=== PATIENT | female | born 1940 | race Caucasian/White ===

== ENCOUNTER 2019-08-20 14:08 | Observation (INO) | payer MEDICARE ==
[2019-08-20] MEDS ORDERED: cereBYX 50 MG/ML*** 1,000 MG in Sodium Chloride 0.9% 100 ML IVPB 100 ML IV ONE (14:20)
--- NOTE | 2019-08-20 14:27 | ERPHSYRPT ---
- History of Present Illness Time Seen by Provider: 08/20/19 14:10 Source: patient, family Exam Limitations: no limitations Physician History: per family: The patient was getting ready to start eating her Thanksgiving lunch. C. tried to remove her rest better and at that time she kept her hand in the air and the and she become cold and clammy and broke out in a sweat and then she become unresponsive for a few seconds. Patient alert and oriented x3 in the emergency room but has a little bit of intermittent confusion just like a postictal confusion. Family states that she did have a some involuntary movement of both her extremity and she had incontinence at home. Witnessed: by family Prior Episodes: single episode today Timing/Duration: today Precipitating Factors: unknown Context: sitting Loss of Consciousness: brief (seconds) Charcter of event(s): became unresponsive Allergies/Adverse Reactions: Penicillins Allergy (Verified 06/07/12 11:38) one of the 2 allergies causes throat to swell and 1 causes hives unsure which one Sulfa (Sulfonamide Antibiotics) [Sulfa(Sulfonamide Antibiotics)] Allergy ( Verified 06/07/12 11:38) one of the 2 allergies causes throat to swell and 1 causes hives unsure which one Home Medications: Diclofenac Sodium Gel [Voltaren GEL] 100 gm TP DAILY 08/20/19 [History] Montelukast Sodium 10 mg PO DAILY 08/20/19 [History] Hx Tetanus, Diphtheria Vaccination/Date Given: (UNSURE) Hx Influenza Vaccination/Date Given: (UNSURE) Hx Pneumococcal Vaccination/Date Given: (UNSURE) - Past Medical History Neurological History: TIA ENT History: Cataracts Cardiac History: Hypertension Respiratory History: No Pertinent History Endocrine Medical History: No Pertinent History Musculoskeletal History: Arthritis GI Medical History: Colorectal Cancer History: No Pertinent History Psycho-Social History: No Pertinent History Female Reproductive Disorders: No Pertinent History - Past Surgical History Past Surgical History: Yes Neuro Surgical History: No Pertinent History Cardiac: No Pertinent History Respiratory: No Pertinent History Gastrointestinal: Colon Resection Musculoskeletal: Orthopedic Surgery Female Surgical History: Hysterectomy - Social History Smoking Status: Smoker, status unknown Exposure to second hand smoke: No Drug Use: none Patient Lives Alone: No - Review of Systems Constitutional: No Fever, No Chills Eyes: No Symptoms Ears, Nose, & Throat: No Symptoms Respiratory: No Cough, No Dyspnea Cardiac: No Chest Pain, No Edema, No Syncope Abdominal/Gastrointestinal: No Abdominal Pain, No Nausea, No Vomiting, No Diarrhea Genitourinary Symptoms: Other (urinary incontinence), No Dysuria Musculoskeletal: No Back Pain, No Neck Pain Skin: No Rash Neurological: Seizure, Other (syncope), No Dizziness, No Focal Weakness, No Sensory Changes Psychological: No Symptoms Endocrine: No Symptoms All Other Systems: Reviewed and Negative Physical Exam - Nursing Vital Signs Nursing Vital Signs: Initial Vital Signs Temperature 97.5 F 08/20/19 14:09 Pulse Rate 68 08/20/19 14:09 Respiratory Rate 14 08/20/19 14:09 Blood Pressure 145/71 08/20/19 14:09 O2 Sat by Pulse Oximetry 92 L 08/20/19 14:09 Pain Scale Pain Intensity 0 - Marcello Coma Scale Best Eye Response ([place]): (4) open spontaneously Best Verbal Response ([place]): (5) oriented Best Motor Response ([place]): (6) obeys commands [place] Total: 15 - Physical Exam General Appearance: no apparent distress, alert Eye Exam: bilateral eye: PERRL, EOMI Ears, Nose, Throat Exam: normal ENT inspection, pharynx normal, moist mucous membranes Neck Exam: normal inspection, non-tender, supple, full range of motion, No meningismus, No mass Respiratory: normal breath sounds, lungs clear, airway intact, No chest tenderness, No respiratory distress, No diminished breath sounds Cardiovascular: regular rate/rhythm, capillary refill <2 sec, No murmur, No pulse deficit Gastrointestinal: soft, normal bowel sounds, No tenderness, No distention, No mass Back Exam: normal inspection, normal range of motion, No CVA tenderness, No vertebral tenderness Extremity Exam: normal inspection, normal range of motion, pelvis stable, No tenderness Mental Status: alert, oriented x 3, 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 Exam: normal hearing, normal speech, PERRL, No abnormal eye position, No abnormal gag reflex, No abnormal pupil position, No facial droop Coordination/Gait: normal finger to nose Motor/Sensory: no motor deficit, no sensory deficit, no pronator drift, negative Babinski's sign, No pronator drift (L), No sensory deficit, No weak motor strength RUE, No weak motor strength LUE, No weak motor strength RLE, No weak motor strength LLE Skin Exam: normal color, warm, dry, No rash SpO2 Interpretation: normal O2 Delivery: Room Air - Course Nursing assessment & vital signs reviewed: Yes EKG Interpreted by Me: RATE (66), NORMAL AXIS, prolonged QT interval, Left Bundle Branch Block, Right Bundle Branch Block, Non-specific ST Changes - Radiology Exams Chest X-ray Interpretation: Interpreted by me, No Pneumonia - CT Exams Head CT Interpretation: Discussed w/radiologist, Other (nothing acute) Ordered Tests: Active Orders 24 hr Category Date Time Status Accucheck STAT Care 08/20/19 14:20 Active EKG-ER Only STAT Care 08/20/19 14:20 Active NPO (ED) STAT Care 08/20/19 14:20 Active CHEST 1 VIEW (PORTABLE) Stat Exams 08/20/19 14:27 Taken HEAD WITHOUT CONTRAST [CT] Stat Exams 08/20/19 14:21 Taken CBC W DIFF Stat Lab 08/20/19 14:30 Completed CMP Stat Lab 08/20/19 14:30 Completed MAGNESIUM Stat Lab 08/20/19 14:30 Completed TROPONIN Q3H Lab 08/20/19 14:30 Completed TROPONIN Q3H Lab 08/20/19 17:30 Ordered TROPONIN Q3H Lab 08/20/19 20:30 Ordered TROPONIN Q3H Lab 08/20/19 23:30 Ordered UA W/RFX UR CULTURE Stat Lab 08/20/19 14:20 Uncollected Medication Summary Generic Name Dose Route Start Last Admin Trade Name Freq PRN Reason Stop Dose Admin Sodium Chloride 1,000 mls @ 100 mls/hr 08/20/19 14:30 08/20/19 14:55 Sodium Chloride 0.9% 1000 Ml IV 09/19/19 14:29 100 mls/hr .Q10H WILLIAM Administration Discontinued Medications Generic Name Dose Route Start Last Admin Trade Name Freq PRN Reason Stop Dose Admin Fosphenytoin Sodium Confirm 08/20/19 14:52 Cerebyx 50 Mg/Ml Administered 08/20/19 14:53 Dose 1,000 mg .ROUTE .STK-MED ONE Fosphenytoin Sodium 1,000 mg/ 120 mls @ 240 mls/hr 08/20/19 14:20 08/20/19 14 :55 Sodium Chloride IV 08/20/19 14:49 240 mls/hr STAT ONE Administration Sodium Chloride Confirm 08/20/19 14:51 Sodium Chloride 0.9% 100 Ml Ivpb Administered 08/20/19 14:52 Dose 100 mls @ ud IV .STK-MED ONE Lab/Rad Data: Laboratory Result Diagrams 08/20/19 14:30 08/20/19 14:30 Laboratory Results 08/20/19 08/20/19 08/20/19 Range/Units 14:30 14:30 14:30 WBC 4.6 (4.0-10.5) K/mm3 RBC 4.46 (4.1-5.4) M/mm3 Hgb 12.5 (12.0-16.0) gm/dl Hct 38.6 (35-47) % MCV 86.5 (78-100) fl MCH 28.0 (26-32) pg MCHC 32.4 (32-36) g/dl RDW 14.2 H (11.5-14.0) % Plt Count 248 (150-450) K/mm3 MPV 10.3 H (6-9.5) fl Gran % 56.3 (36.0-66.0) % Eos # (Auto) 0.08 (0-0.5) Absolute Lymphs (auto) 1.49 (1.0-4.6) Absolute Monos (auto) 0.42 (0.0-1.3) Lymphocytes % 32.3 (24.0-44.0) % Monocytes % 9.1 (0.0-12.0) % Eosinophils % 1.7 (0.00-5.0) % Basophils % 0.6 (0.0-0.4) % Absolute Granulocytes 2.60 (1.4-6.9) Basophils # 0.03 (0-0.4) Sodium 139 (137-145) mmol/L Potassium 4.0 (3.5-5.1) mmol/L Chloride 104 (98-107) mmol/L Carbon Dioxide 25 (22-30) mmol/L Anion Gap 13.0 (5-15) MEQ/L BUN 16 (7-17) mg/dL Creatinine 0.87 (0.52-1.04) mg/dL Estimated GFR > 60.0 ML/MIN Glucose 115 H (74-106) mg/dL Calcium 9.4 (8.4-10.2) mg/dL Magnesium 1.9 (1.6-2.3) mg/dL Total Bilirubin 0.70 (0.2-1.3) mg/dL AST 21 (14-36) U/L ALT 11 (0-35) U/L Alkaline Phosphatase 90 (38-126) U/L Troponin I < 0.012 (0.000-0.034) ng/mL Serum Total Protein 7.2 (6.3-8.2) g/dL Albumin 4.1 (3.5-5.0) g/dL - Progress Progress: improved Progress Note: syncope versus seizure. Patient is already being treated with the fosphenytoin. Will admit patient for observation. I talked to Dr. Calvert he agreed with that. Patient alert oriented x3. Normal C&S. Family in the room. Discussed with patient and family. They agreed with the plan. 08/20/19 15:44 Discussed with : Loki Will see patient in: hospital (observation) Counseled pt/family regarding: diagnosis - Departure Departure Disposition: Observation Clinical Impression: Seizure disorder Syncope Qualifiers: Syncope type: unspecified Qualified Code(s): R55 - Syncope and collapse Condition: Good Critical Care Time: No Referrals: KARUNA ACE [Primary Care Provider] -
[2019-08-20 14:33] LABS: BASOPHIL % 0.6 % (0.0-0.4); Basophil (Absolute #) 0.03 (0-0.4); Eosinophil % 1.7 % (0.00-5.0); Eosinophil (Absolute #) 0.08 (0-0.5); Hematocrit 38.6 % (35-47); Hemoglobin 12.5 gm/dl (12.0-16.0); Lymphocyte (Absolute #) 1.49 (1.0-4.6); Lymphocytes % 32.3 % (24.0-44.0); Mean Cell Volume 86.5 fl (78-100); Mean Corpuscular Hgb Concent. 32.4 g/dl (32-36); Mean Platelet Volume 10.3 fl (6-9.5); Monocyte (Absolute #) 0.42 (0.0-1.3); Monocytes % 9.1 % (0.0-12.0); Neutrophil % 56.3 % (36.0-66.0); Platelet Count 248 K/mm3 (150-450); Red Blood Count 4.46 M/mm3 (4.1-5.4); Red Cell Distribution Width 14.2 % (11.5-14.0); White Blood Count 4.6 K/mm3 (4.0-10.5)
[2019-08-20] MEDS ORDERED: Sodium Chloride 0.9% 100 ML IVPB 100 ML IV ONE (14:51)
[2019-08-20] MEDS ORDERED: cereBYX 50 MG/ML ONE (14:52)
[2019-08-20] MEDS: Sodium Chloride 0.9% 1000 ML 1,000 ML IV SCH (14:55)
[2019-08-20 15:08] LABS: ALBUMIN 4.1 g/dL (3.5-5.0); ALKALINE PHOSPHATASE 90 U/L (38-126); BLOOD UREA NITROGEN 16 mg/dL (7-17); CHLORIDE 104 mmol/L (98-107); Calcium 9.4 mg/dL (8.4-10.2); Carbon Dioxide 25 mmol/L (22-30); Creatinine 1 0.87 mg/dL (0.52-1.04); Glucose 115 mg/dL (74-106); MAGNESIUM 1.9 mg/dL (1.6-2.3); SGOT/AST 21 U/L (14-36); SGPT/ALT 11 U/L (0-35); SODIUM 139 mmol/L (137-145); Total Protein 7.2 g/dL (6.3-8.2)
[2019-08-20 19:08] LABS: Appearance CLEAR (CLEAR); Bilirubin NEGATIVE (NEGATIVE); Blood SMALL Ery/ul (0-5); Glucose NEGATIVE (NEGATIVE); Ketones NEGATIVE (NEGATIVE); Leukocyte Esterase NEGATIVE (NEGATIVE); Mucus SLIGHT /HPF (NEGATIVE); Nitrite NEGATIVE (NEGATIVE); Protein,Urine Dip NEGATIVE (Negative); Specific Gravity 1.008 (1.005-1.025); Urobilinogen NEGATIVE mg/dL (0-1)
[2019-08-20 19:09] LABS: RBC NONE SEEN /HPF (0-2)
--- NOTE | 2019-08-20 21:28 | XRAY ---
Indication: Syncope and malaise. Comparison: None Portable chest demonstrates blunting left lung base favoring pleural effusion versus pleural thickening with superimposed infiltrate not completely excluded. Remaining heart and lungs unremarkable with incidental chunky subcarinal calcified node. Bony thorax intact with mild degenerative changes and old left rib fractures.
--- NOTE | 2019-08-20 21:30 | XRAY ---
Indication: Syncope and malaise. Multiple contiguous axial images obtained through the head without contrast. Comparison: None Age-appropriate global atrophy and moderate periventricular degenerative micro-ischemia bilaterally. Right thalamus remote lacunar infarct. No acute intracranial hemorrhage, abnormal extra-axial fluid collection, or mass effect. Fourth ventricle is midline without hydrocephalus. Bony calvarium intact. Visualized paranasal sinuses and mastoid air cells are clear. Impression: Nonacute senile brain with right thalamic remote lacunar infarct. CTDI 38.22
[2019-08-20] MEDS: Singulair 10 MG PO SCH (21:42)
[2019-08-21] MEDS: Sodium Chloride 0.9% 1000 ML 1,000 ML IV SCH (01:23)
[2019-08-21 05:43] LABS: Absolute Neutrophil Ct (ANC) 1.73 (1.4-6.9); BASOPHIL % 0.5 % (0.0-0.4); Basophil (Absolute #) 0.02 (0-0.4); Eosinophil (Absolute #) 0.11 (0-0.5); Hematocrit 35.1 % (35-47); Hemoglobin 11.2 gm/dl (12.0-16.0); Lymphocyte (Absolute #) 1.42 (1.0-4.6); Lymphocytes % 38.9 % (24.0-44.0); Mean Cell Volume 87.1 fl (78-100); Mean Corpuscular Hemoglobin 27.8 pg (26-32); Mean Corpuscular Hgb Concent. 31.9 g/dl (32-36); Mean Platelet Volume 10.2 fl (6-9.5); Monocyte (Absolute #) 0.37 (0.0-1.3); Monocytes % 10.1 % (0.0-12.0); Neutrophil % 47.5 % (36.0-66.0); Platelet Count 218 K/mm3 (150-450); Red Blood Count 4.03 M/mm3 (4.1-5.4); Red Cell Distribution Width 14.1 % (11.5-14.0); White Blood Count 3.7 K/mm3 (4.0-10.5)
[2019-08-21 06:11] LABS: ANION GAP 10.3 MEQ/L (5-15); BLOOD UREA NITROGEN 13 mg/dL (7-17); CHLORIDE 108 mmol/L (98-107); Calcium 8.7 mg/dL (8.4-10.2); Carbon Dioxide 24 mmol/L (22-30); Creatinine 1 0.78 mg/dL (0.52-1.04); Glucose 93 mg/dL (74-106); Potassium 4.1 mmol/L (3.5-5.1); SODIUM 138 mmol/L (137-145)
[2019-08-21 06:20] LABS: Risk Ratio 2.4
[2019-08-21] MEDS: Lopressor 25MG Tab PO SCH ×2 (08:16→22:10)
[2019-08-21] MEDS ORDERED: Zestril 5 MG PO STA (11:15)
[2019-08-21] MEDS ORDERED: Ecotrin 325 MG PO ONE (11:20)
[2019-08-21 12:04] LABS: Iron 81 ug/dL (37-170); Iron Saturation 29 % (20-39); TIBC 285 ug/dL (265-462)
--- NOTE | 2019-08-21 14:03 | HP ---
HISTORY OF PRESENT ILLNESS: This is a 79 y/o patient of Dr. Carpenter who presented to the Emergency Department yesterday. She is alone in her room today. She reports she was at her son's house and felt hot while she was sitting down and keeled over. She doesn't think she hit her head. She woke up and found herself on the kitchen floor. She was brought to the Emergency Department by ambulance. She states she feels better and wants to go home. She hadn't really been feeling sick lately, but she reports she has had history of colon cancer for years and has had a colostomy for a long time. The Emergency Room doctor saw her and had teleneurology consulted. They recommended an MRI of her head as well as some other studies. REVIEW OF SYSTEMS: The patient denies any diarrhea. No vomiting. She felt warm, but no known fever. No chest pain. No abdominal pain. She reports her ostomy bag is working well. PAST MEDICAL HISTORY: History of colon cancer. Patient reports possible history of a transient ischemic attack, but she is unsure. PAST SURGICAL HISTORY: Noncontributory. SOCIAL HISTORY: No tobacco or alcohol use. FAMILY HISTORY: Noncontributory. Her mother is living and is 97. Her father is and didn't have any health problems. CURRENT MEDICATIONS: Please see the home medication reconciliation list which I reviewed. ALLERGIES: PENICILLIN AND SULFA. PHYSICAL EXAMINATION: VITAL SIGNS: Temperature current 97.9, temperature maximum 98.3, heart rate 17, O2 saturation 95% on room air, BP 166-180/71-81. GENERAL: The patient is a pleasant, talkative lady lying in bed in no acute distress. Pupils equal, round, and reactive to light. Cranial nerves 2-12 are intact. Strength is 5/5 in all 4 extremities. Normal finger to nose. HEART: Regular rate and rhythm. No murmurs, gallops, or rubs. No carotid bruits are appreciated. CHEST: Clear to auscultation bilaterally. ABDOMEN: Soft, nontender, nondistended with normal bowel sounds. EXTREMITIES: No clubbing, cyanosis, or edema. SKIN: Warm, dry, and intact. LABORATORY DATA: Hgb on admission 12.5, 11.2 today. CMP on admission revealed a glucose of 115. She has had serial negative troponins. Fasting lipid profile with an LDL of 80, HDL 69. UA was negative. CT scan of the head was reported as nonacute senile brain with right thalamic remote lacunar infarct. ASSESSMENT AND PLAN: 1. SYNCOPE. Etiology of his is unclear. Again, the teleneurologist has recommended an MRI/MRA. We are told by radiology and administration that is not available here in our hospital today. We have reached out again to teleneurology to see if there are any other options. The patient understands that right now that is not available. I do think she at least needs to stay again overnight to make sure she doesn't have any further episodes and then she may have to complete a work-up as an outpatient. I have started her on Aspirin daily, ordered carotid Doppler's and a cardiac echo as well as starting a statin. 2. HISTORY OF CEREBROVASCULAR ACCIDENT. Again, starting the statin, aspirin. Will probably start a low-dose angiotensin-converting enzyme inhibitor as it has almost been 24 hours since her presentation. 3. HISTORY OF COLON CANCER. Will continue with ostomy care and she will follow-up with her primary care doctor and/or oncologist as an outpatient.
[2019-08-21 14:18] LABS: TSH, 3RD Generation 4.88 mIU/L (0.47-4.68)
[2019-08-21] MEDS: Voltaren GEL TOP SCH ×4 (18:41→22:08)
--- NOTE | 2019-08-21 19:16 | XRAY ---
Indication: TIA. Two-dimensional sonogram and color Doppler imaging of the carotid arteries of the neck performed. Comparison: None Examination of the right carotid circulation demonstrates minimal calcified eccentric plaquing at the level of the bulb slightly extending to the origin of the external carotid artery. PSV of the CCA is 56 cm/s. PSV of the ICA is 75 cm/s. ICA/CCA ratio is 1.3. Normal antegrade vertebral artery flow. Examination of the left carotid circulation also demonstrates minimal calcified eccentric plaque at the level of the bulb. PSV of the CCA is 67 cm/s. PSV of the ICA is 122 cm/s. ICA/CCA ratio is 1.8. Normal antegrade vertebral artery flow. Impression: Minimal bilateral carotid plaquing. Velocities measurements and ratios are negative for hemodynamically significant flow-limiting stenosis.
--- NOTE | 2019-08-21 19:24 | XRAY ---
Indication: Syncopal episode. Conventional contrast enhanced CTA neck performed using 80 cc Isovue 370 contrast. Two-dimensional sagittal and coronal reformatted images obtained. Comparison: None Visualized aortic arch demonstrates anatomic variant for bovine arch. Right common carotid artery is mildly tortuous. Minimal eccentric calcified plaque at the level of the bulb slightly extending to the origin of the external carotid artery. Remaining internal and external carotid arteries are normal in CTA appearance. Left common carotid artery demonstrates minimal calcification at its origin and carotid bulb. Remaining internal and external carotid arteries are normal in CTA appearance. Posterior circulation demonstrates bilaterally symmetric vertebral arteries without critical stenosis, obstruction, or AV malformation. Visualized noncontrasted soft tissues demonstrates minimally heterogeneous thyroid gland with slightly enlarged right lobe. No pathologic cervical or supraclavicular lymphadenopathy. Supra-and infraglottic airway are widely patent. Visualized osseous structures including cervical spine intact. Lung apices are clear. Incidental old left 3-5 rib fractures. Impression: 1. Minimal carotid calcifications bilaterally as detailed. No critical stenosis/obstruction. 2. Normal CTA vertebral arteries. 3. Anatomic variant for bovine arch. 4. Mild heterogeneous and asymmetric thyroid gland. Thyroid sonogram may yield further information if clinically warranted. Comment: Preliminary interpretation was made by [facility]. No critical discrepancy. CTDI 23.29
--- NOTE | 2019-08-21 19:28 | XRAY ---
Indication: Syncopal episode. Conventional contrast enhanced CTA brain was performed using 80 cc Isovue 370 contrast. Two-dimensional sagittal and coronal reformatted images obtained. Comparison: None Distal internal carotid arteries are bilaterally symmetric with minimal calcifications. No critical stenosis/obstruction. Normal carotid terminus with normal branching A1 and M1 segments. More distal anterior cerebral, middle cerebral, anterior communicating, and left posterior communicating arteries are normal in CTA appearance. Right posterior commuting artery is not seen. Posterior circulation demonstrates minimal calcifications in the distal vertebral arteries bilaterally. Normal branching posterior-inferior cerebellar arteries bilaterally. Basilar artery is normal in course and caliber with normal branching posterior cerebral, superior cerebellar, and anterior inferior cerebellar arteries bilaterally. Venous drainage/sinuses unremarkable. No abnormal enhancing intra-or extra-axial mass. Impression: Minimal calcifications distal internal carotid and distal vertebral arteries without critical stenosis/obstruction. Remaining CTA brain is negative. Comment: Preliminary interpretation was made by [facility]. No critical discrepancy. CTDI 23.29
[2019-08-21] MEDS ORDERED: ZOCOR 20MG PO SCH (22:00)
[2019-08-21] MEDS: Singulair 10 MG PO SCH (22:11)
[2019-08-22] MEDS: Sodium Chloride 0.9% 1000 ML 1,000 ML IV SCH (01:25)
[2019-08-22 07:42] VITALS: BP 124/72; PULSE 80; O2SAT 96
[2019-08-22] MEDS: Voltaren GEL TOP SCH (09:28)
[2019-08-22] MEDS: Lopressor 25MG Tab PO SCH ×2 (09:28→09:33)
[2019-08-22] MEDS ORDERED: Zestril 5 MG PO SCH (10:00)
[2019-08-22] MEDS ORDERED: Ecotrin 325 MG PO SCH (10:00)
[2019-08-22] MEDS ORDERED: Vitamin B-12 500 MCG PO SCH (10:00)
--- NOTE | 2019-08-24 11:35 | DS ---
DISCHARGE DIAGNOSIS: SYNCOPAL EPISODE. HISTORY: The patient is a 79 year-old white female who reports that she had begun feeling warm and then apparently had passed out. The family was around and summoned EMS. By the time EMS had arrived at her home she was back to her normal state and has been so since that time. The patient does report she had an episode similar to this about a month ago where she was in [facility] and actually passed out. The patient reported similar episodes in the past few years as well. The patient had not felt any palpitations, no chest pain and no chest pressure. She had no other neurologic symptoms as far as any focal deficits. HOSPITAL COURSE: The patient was admitted to the medicine scales where she was placed on telemetry. Since admission, her heart rate has been somewhat low running in the 50's. The patient was placed on metoprolol for blood pressure control and this has made things somewhat worse with her heart rate being even a little bit lower. The patient otherwise was feeling good and back to her normal state of health and anxious to be discharged home. On laboratory evaluations the patient was found to be mildly B12 deficient with vitamin B12 level of 197. TSH was slightly high at 4.88. International normalized ratio was normal. Troponin was normal. UA was normal. Metabolic panel was normal with sugar of 93. Lipid panel showed her LDL to be 80 and HDL 69. She had CT-A of the head and neck which showed no significant blockages. ASSESSMENT: A patient with syncopal episode likely due to bradycardia. The patient has been instructed to monitor herself closely for her heart rate and if she has further symptoms to have herself or someone else check her pulse rate. She now understands when she starts to feeling that way she is to sit down or lay down until the symptoms pass. We will see her in the office in one week for follow up. At that time we will arrange for cardiology evaluation to see if she is having symptomatic bradycardia which might require her to be on further intervention with possible even pacemaker. The patient verbalized her understanding. She will continue to use her home medications. Otherwise we will address her B12 deficiency also as an outpatient.
== END 2019-08-22 10:34 | disposition home or self-care (01) ==
LOC: ED 14:08 → MED SURG 16:05
PROVIDERS: ADMIT Family Medicine; ATTEND Family Medicine
DX: R55 Syncope and collapse (principal); E53.8 Deficiency of other specified B group vitamins; R94.6 Abnormal results of thyroid function studies; Z85.038 Personal history of other malignant neoplasm of large intestine; Z93.3 Colostomy status; Z86.73 Personal history of transient ischemic attack (TIA), and cerebral infarction without residual deficits; Z79.899 Other long term (current) drug therapy
CPT/HCPCS: 36415; 70450; 70496; 70498; 71045; 80048; 80053; 80061; 81001; 82607; 82962; 83540; 83550; 83721; 83735; 84443; 84484; 85025; 93005; 93268; 93306; 93880; 96374; 99285; G0378; Q3014; Q2009; A9270-GY

== ENCOUNTER 2019-10-27 11:36 | Emergency (ER) | payer MEDICARE ==
--- NOTE | 2019-10-27 11:41 | ERPHSYRPT ---
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 Sulfa (Sulfonamide Antibiotics) [Sulfa(Sulfonamide Antibiotics)] Allergy ( Verified 10/27/19 11:59) pt cant remember reaction Home Medications: Metoprolol Succinate 25 mg PO HS 10/13/19 [History] Warfarin Sodium 6 mg PO TUTH@1200 10/13/19 [History] Warfarin Sodium 4 mg PO SUMOWEFRSA@1200 10/20/19 [History] Hx Tetanus, Diphtheria Vaccination/Date Given: (UNSURE) Hx Influenza Vaccination/Date Given: (UNSURE) Hx Pneumococcal Vaccination/Date Given: (UNSURE) - Review of Systems Constitutional: No Fever, No Chills Eyes: No Symptoms Ears, Nose, & Throat: No Symptoms Respiratory: Cough, Dyspnea Cardiac: Chest Pain, No Edema, No Syncope Abdominal/Gastrointestinal: No Abdominal Pain, No Nausea, No Vomiting, No Diarrhea Genitourinary Symptoms: No Dysuria Musculoskeletal: No Back Pain, No Neck Pain Skin: No Rash Neurological: No Dizziness, No Focal Weakness, No Sensory Changes Psychological: No Symptoms Endocrine: No Symptoms All Other Systems: Reviewed and Negative - Past Medical History Pertinent Past Medical History: Yes Neurological History: TIA ENT History: Cataracts Cardiac History: Hypertension Respiratory History: No Pertinent History Endocrine Medical History: No Pertinent History Musculoskeletal History: Arthritis GI Medical History: Colorectal Cancer History: No Pertinent History Psycho-Social History: No Pertinent History Female Reproductive Disorders: No Pertinent History - Past Surgical History Past Surgical History: Yes Neuro Surgical History: No Pertinent History Cardiac: No Pertinent History Respiratory: No Pertinent History Gastrointestinal: Colon Resection Genitourinary: No Pertinent History Musculoskeletal: No Pertinent History Female Surgical History: Hysterectomy Other Surgical History: colostomy - Social History Smoking Status: Never smoker Exposure to second hand smoke: No Drug Use: none Patient Lives Alone: No - Nursing Vital Signs Nursing Vital Signs: Initial Vital Signs Temperature 97.7 F 10/27/19 11:39 Pulse Rate 59 L 10/27/19 11:39 Respiratory Rate 23 10/27/19 11:39 Blood Pressure 139/83 10/27/19 11:39 O2 Sat by Pulse Oximetry 100 10/27/19 11:39 Pain Scale Pain Intensity 0 - Physical Exam General Appearance: no apparent distress, alert Eye Exam: PERRL/EOMI, eyes nml inspection Ears, Nose, Throat Exam: normal ENT inspection, moist mucous membranes Neck Exam: normal inspection, non-tender, supple, full range of motion Respiratory Exam: normal breath sounds, lungs clear, No respiratory distress Cardiovascular Exam: regular rate/rhythm, normal heart sounds Gastrointestinal/Abdomen Exam: soft, No tenderness, No mass Back Exam: normal inspection, No CVA tenderness, No vertebral tenderness Extremity Exam: normal inspection, normal range of motion Neurologic Exam: alert, oriented x 3, cooperative, normal mood/affect, sensation nml, No motor deficits Skin Exam: normal color, warm, dry - Course EKG Interpreted by Me: RATE (59), Sinus Tyler, LAFB, 1st degree AV Block, Right Bundle Branch Block, Non-specific ST Changes, Other (NO changes c/t 08/20/19) - Radiology Exams Chest X-ray Interpretation: Discussed w/ radiologist, Negative Ordered Tests: Active Orders 24 hr Category Date Time Status Insurance Risk Manager STAT Care 10/27/19 11:39 Active EKG-ER Only STAT Care 10/27/19 11:38 Active IV Insertion STAT Care 10/27/19 11:38 Active CHEST 1 VIEW (PORTABLE) Stat Exams 10/27/19 11:38 Completed CBC W DIFF Stat Lab 10/27/19 11:55 Completed CMP Stat Lab 10/27/19 11:55 Completed NT PRO BNP Stat Lab 10/27/19 11:55 Completed TROPONIN Q3H Lab 10/27/19 11:55 Completed TROPONIN Q3H Lab 10/27/19 14:45 Ordered Lab/Rad Data: Laboratory Result Diagrams 10/27/19 11:55 10/27/19 11:55 Laboratory Results 02/04/20 02/04/20 02/04/20 Range/Units 11:55 11:55 11:55 WBC 4.1 (4.0-10.5) K/mm3 RBC 4.81 (4.1-5.4) M/mm3 Hgb 13.5 (12.0-16.0) gm/dl Hct 41.5 (35-47) % MCV 86.3 (78-100) fl MCH 28.1 (26-32) pg MCHC 32.5 (32-36) g/dl RDW 14.2 H (11.5-14.0) % Plt Count 256 (150-450) K/mm3 MPV 10.4 (7.5-11.0) fl Gran % 47.5 (36.0-66.0) % Eos # (Auto) 0.10 (0-0.5) Absolute Lymphs (auto) 1.57 (1.0-4.6) Absolute Monos (auto) 0.40 (0.0-1.3) Lymphocytes % 38.5 (24.0-44.0) % Monocytes % 9.8 (0.0-12.0) % Eosinophils % 2.5 (0.00-5.0) % Basophils % 1.7 (0.0-0.4) % Absolute Granulocytes 1.94 (1.4-6.9) Basophils # 0.07 (0-0.4) Sodium 135 L (137-145) mmol/L Potassium 4.6 (3.5-5.1) mmol/L Chloride 103 (98-107) mmol/L Carbon Dioxide 23 (22-30) mmol/L Anion Gap 13.9 (5-15) MEQ/L BUN 13 (7-17) mg/dL Creatinine 0.86 (0.52-1.04) mg/dL Estimated GFR > 60.0 ML/MIN Glucose 91 (74-106) mg/dL Calcium 9.2 (8.4-10.2) mg/dL Total Bilirubin 1.10 (0.2-1.3) mg/dL AST 22 (14-36) U/L ALT 12 (0-35) U/L Alkaline Phosphatase 83 (38-126) U/L Troponin I < 0.012 (0.000-0.034) ng/mL NT-Pro-B Natriuret Pep 171 (0-1800) pg/mL Serum Total Protein 6.5 (6.3-8.2) g/dL Albumin 3.7 (3.5-5.0) g/dL - Progress Progress: improved Air Movement: good Progress Note: 10/27/19 13:27 No chest pain in ER. Work up neg. D/w Dr. Santos who advised DC and f/u in office to set up for cardiolite stress test. Pt agrees with dispo. Blood Culture(s) Obtained: No Antibiotics given: No Discussed with Dr.: Other (Dr. Santos) Will see patient in: office Counseled pt/family regarding: lab results, diagnosis, need for follow-up, rad results - Departure Departure Disposition: Home Clinical Impression: Chest pain Qualifiers: Chest pain type: unspecified Qualified Code(s): R07.9 - Chest pain, unspecified Condition: Stable Critical Care Time: No [facility]errals: [facility]] - ANTHONY SANTOS [Primary Care Provider] - Instructions: Chest Pain (DC) Additional Instructions: Continue with home meds. Monitor symptoms closely. Follow up with Dr. Santos tomorrow or definitely in a few days. He would like to set up a stress test. Return to ER if worse.
[2019-10-27 12:02] LABS: Absolute Neutrophil Ct (ANC) 1.94 (1.4-6.9); BASOPHIL % 1.7 % (0.0-0.4); Basophil (Absolute #) 0.07 (0-0.4); Eosinophil % 2.5 % (0.00-5.0); Hematocrit 41.5 % (35-47); Hemoglobin 13.5 gm/dl (12.0-16.0); Lymphocyte (Absolute #) 1.57 (1.0-4.6); Lymphocytes % 38.5 % (24.0-44.0); Mean Cell Volume 86.3 fl (78-100); Mean Corpuscular Hemoglobin 28.1 pg (26-32); Mean Corpuscular Hgb Concent. 32.5 g/dl (32-36); Mean Platelet Volume 10.4 fl (7.5-11.0); Monocytes % 9.8 % (0.0-12.0); Neutrophil % 47.5 % (36.0-66.0); Platelet Count 256 K/mm3 (150-450); Red Blood Count 4.81 M/mm3 (4.1-5.4); Red Cell Distribution Width 14.2 % (11.5-14.0); White Blood Count 4.1 K/mm3 (4.0-10.5)
--- NOTE | 2019-10-27 12:05 | XRAY ---
Indication: Chest pain. Comparison: August 12, 2019. Portable chest again demonstrates chronic left base pleural effusion versus pleural thickening. Remaining heart and lungs normal again with incidental subcarinal calcified node. Bony thorax intact again with mild degenerative changes and old left rib fractures. Impression: Stable nonacute chest with chronic features.
[2019-10-27 12:51] LABS: ALBUMIN 3.7 g/dL (3.5-5.0); ALKALINE PHOSPHATASE 83 U/L (38-126); ANION GAP 13.9 MEQ/L (5-15); BLOOD UREA NITROGEN 13 mg/dL (7-17); CHLORIDE 103 mmol/L (98-107); Calcium 9.2 mg/dL (8.4-10.2); Carbon Dioxide 23 mmol/L (22-30); Creatinine 1 0.86 mg/dL (0.52-1.04); Glucose 91 mg/dL (74-106); NT PRO BNP 171 pg/mL (0-1800); Potassium 4.6 mmol/L (3.5-5.1); SGOT/AST 22 U/L (14-36); SGPT/ALT 12 U/L (0-35); SODIUM 135 mmol/L (137-145); Total Protein 6.5 g/dL (6.3-8.2)
[2019-10-27 13:09] VITALS: BP 165/85; PULSE 57; O2SAT 98
== END 2019-10-27 13:38 | disposition home or self-care (01) ==
LOC: ED 11:36
DX: R07.9 Chest pain, unspecified (principal)
CPT/HCPCS: 36000; 36415; 71045; 80053; 83880; 84484; 85025; 93005; 93041; 99284

== ENCOUNTER 2019-11-21 12:24 | Emergency (ER) | payer MEDICARE ==
[2019-11-21] MEDS ORDERED: GI COCKTAIL 45 ML (Maalox/Lidocaine) PO ONE (12:50)
[2019-11-21] MEDS ORDERED: Zofran 4 MG/2 ML VIAL IV ONE (12:50)
[2019-11-21] MEDS ORDERED: MORPHINE SULFATE 4 MG INJ IV ONE (12:50)
[2019-11-21] MEDS ORDERED: Sodium Chloride 0.9% 1000 ML 1,000 ML IV STA (12:50)
[2019-11-21] MEDS ORDERED: MORPHINE SULFATE 4 MG INJ ONE (12:54)
[2019-11-21] MEDS ORDERED: Zofran 4 MG/2 ML VIAL ONE (12:54)
[2019-11-21] MEDS ORDERED: Sodium Chloride 0.9% 1000 ML 1,000 ML ONE (12:57)
[2019-11-21] MEDS ORDERED: XYLOCAINE HCl Viscous ONE (12:57)
[2019-11-21] MEDS ORDERED: MAALOX ES 30 ML UNIT DOSE ONE (12:57)
[2019-11-21 13:14] LABS: ALBUMIN 4.2 g/dL (3.5-5.0); ANION GAP 11.3 MEQ/L (5-15); BILIRUBIN,TOTAL 1.1 mg/dL (0.2-1.3); Calcium 9.1 mg/dL (8.4-10.2); Creatinine 1 1.06 mg/dL (0.52-1.04); Potassium 3.5 mmol/L (3.5-5.1); Total Protein 7.4 g/dL (6.3-8.2)
[2019-11-21 13:16] LABS: Absolute Neutrophil Ct (ANC) 2.96 (1.4-6.9); BASOPHIL % 0.9 % (0.0-0.4); Basophil (Absolute #) 0.05 (0-0.4); Eosinophil (Absolute #) 0.11 (0-0.5); Hematocrit 41.3 % (35-47); Hemoglobin 13.2 gm/dl (12.0-16.0); Lymphocyte (Absolute #) 1.81 (1.0-4.6); Lymphocytes % 32.4 % (24.0-44.0); Mean Cell Volume 85.7 fl (78-100); Mean Corpuscular Hemoglobin 27.4 pg (26-32); Mean Platelet Volume 10.8 fl (7.5-11.0); Monocyte (Absolute #) 0.65 (0.0-1.3); Monocytes % 11.6 % (0.0-12.0); Neutrophil % 53.1 % (36.0-66.0); Platelet Count 259 K/mm3 (150-450); Red Blood Count 4.82 M/mm3 (4.1-5.4); Red Cell Distribution Width 13.9 % (11.5-14.0); White Blood Count 5.6 K/mm3 (4.0-10.5)
[2019-11-21 13:18] LABS: INR 1.76 (0.8-3.0); PROTIME 20.1 SECONDS (9.95-12.35)
--- NOTE | 2019-11-21 13:24 | ERPHSYRPT ---
- History of Present Illness Time Seen by Provider: 11/21/19 12:45 Historian: patient Exam Limitations: no limitations Patient Subjective Stated Complaint: Abdominal pain/vomiting Triage Nursing Assessment: Patient ambulated back to ED and transferred self to bed. Patient A+O X3. Patient's skin pink, warm and dry. Patient complains of epigastric pain constant aching 10/ since last Saturday. Patient states she has been vomiting since Saturday as well. Patient's abdomen soft and round with BS X 4. Patient does have colostomy bag with no output due to just changing bag. Physician History: 79 YO female with history of atrial fib on cumadin , colon cancer s/p partial colectomy with permanent colostomy presented with chief complaint of upper abdominal pain with nausea and vomiting intermittently for the last 6 days. Patient reports pain moderate to severe intensity, in the epigastric/upper abdominal, dull burning to sharp with radiation to the back, aggravated with eating and does down after a few hours. Patient reports multiple episodes of nonprojectile, nonbilious vomiting with no hematemesis. Good colostomy output as usual. No fever or chills reported. Denies any history of acid reflux/GERD. Timing/Duration: day(s) (6), intermittent, worse Activities at Onset: rest, other (after eating) Quality: burning, sharpness Abdominal Pain Onset Location: RUQ, epigastric Pain Radiation: back Severity of Pain-Max: severe Severity of Pain-Current: moderate Modifying Factors: Improves With: eating, vomiting Associated Symptoms: heartburn, nausea, vomiting Previous symptoms: no prior history Allergies/Adverse Reactions: Penicillins Allergy (Verified 11/21/19 12:36) pt cant rememer reaction. Sulfa (Sulfonamide Antibiotics) [Sulfa(Sulfonamide Antibiotics)] Allergy ( Verified 11/21/19 12:36) pt cant remember reaction Home Medications: Warfarin Sodium 8 mg PO DAILY 10/13/19 [History] Hx Tetanus, Diphtheria Vaccination/Date Given: (UNSURE) Hx Influenza Vaccination/Date Given: Yes Hx Pneumococcal Vaccination/Date Given: No Immunizations Up to Date: Yes - Review of Systems Constitutional: No Symptoms Eyes: No Symptoms Ears, Nose, & Throat: No Symptoms Respiratory: No Symptoms Cardiac: No Symptoms Abdominal/Gastrointestinal: Abdominal Pain, Nausea, Vomiting Genitourinary Symptoms: No Symptoms Musculoskeletal: No Symptoms Skin: No Symptoms Neurological: No Symptoms Psychological: No Symptoms Endocrine: No Symptoms Hematologic/Lymphatic: No Symptoms Immunological/Allergic: No Symptoms - Past Medical History Pertinent Past Medical History: Yes Neurological History: TIA ENT History: Cataracts Cardiac History: Hypertension Respiratory History: No Pertinent History Endocrine Medical History: No Pertinent History Musculoskeletal History: Arthritis GI Medical History: Colorectal Cancer History: No Pertinent History Psycho-Social History: No Pertinent History Female Reproductive Disorders: No Pertinent History - Past Surgical History Past Surgical History: Yes Neuro Surgical History: No Pertinent History Cardiac: No Pertinent History Respiratory: No Pertinent History Gastrointestinal: Colon Resection Genitourinary: No Pertinent History Musculoskeletal: No Pertinent History Female Surgical History: Hysterectomy Other Surgical History: colostomy - Social History Smoking Status: Never smoker Exposure to second hand smoke: No Drug Use: none Patient Lives Alone: Yes - Female History Hx Last Menstrual Period: hysterectomy Hx Now: No - Nursing Vital Signs Nursing Vital Signs: Initial Vital Signs Temperature 97.7 F 11/21/19 12:38 Pulse Rate 92 H 11/21/19 12:38 Respiratory Rate 19 11/21/19 12:38 Blood Pressure 144/93 11/21/19 12:38 O2 Sat by Pulse Oximetry 96 11/21/19 12:38 Pain Scale Pain Intensity 10 - Physical Exam General Appearance: no apparent distress Eye Exam: eyes nml inspection Ears, Nose, Throat Exam: normal ENT inspection, pharynx normal Neck Exam: normal inspection, non-tender, supple, full range of motion Respiratory Exam: normal breath sounds, lungs clear Cardiovascular Exam: regular rate/rhythm, normal heart sounds Gastrointestinal/Abdomen Exam: soft, tenderness (epigastric /LUQ/RUQ, negative Pederson sign), guarding, No rebound Back Exam: normal inspection Extremity Exam: normal inspection Neurologic Exam: alert, oriented x 3, cooperative Skin Exam: normal color, warm SpO2 Interpretation: normal SpO2: 96 O2 Delivery: Room Air - Course Nursing assessment & vital signs reviewed: Yes Ordered Tests: Active Orders 24 hr Category Date Time Status IV Insertion STAT Care 11/21/19 12:50 Active NPO (ED) STAT Care 11/21/19 12:50 Active ABDOMEN AND PELVIS W CONTRAST [CT] Stat Exams 11/21/19 12:51 Taken AMYLASE Stat Lab 11/21/19 13:08 Completed CBC W DIFF Stat Lab 11/21/19 13:08 Completed CMP Stat Lab 11/21/19 13:08 Completed CULTURE,URINE Stat Lab 11/21/19 14:32 Received LIPASE Stat Lab 11/21/19 13:08 Completed PT INR [PROTIME WITH INR] Stat Lab 11/21/19 13:08 Completed UA W/RFX UR CULTURE Stat Lab 11/21/19 14:32 Completed Medication Summary Discontinued Medications Generic Name Dose Route Start Last Admin Trade Name Freq PRN Reason Stop Dose Admin Al Hydrox/Mg Hydrox/Simethicone Confirm 11/21/19 12:57 Maalox Es 30 Ml Unit Dose Administered 11/21/19 12:58 Dose 30 ml .ROUTE .STK-MED ONE Sodium Chloride 1,000 mls @ 499 mls/hr 11/21/19 12:50 11/21/19 13:00 Sodium Chloride 0.9% 1000 Ml IV 11/21/19 14:50 499 mls/hr .Q2H1M STA Administration Sodium Chloride Confirm 11/21/19 12:57 Sodium Chloride 0.9% 1000 Ml Administered 11/21/19 12:58 Dose 1,000 mls @ ud .ROUTE .STK-MED ONE Lidocaine HCl Confirm 11/21/19 12:57 Xylocaine Hcl Viscous * Administered 11/21/19 12:58 Dose 15 ml .ROUTE .STK-MED ONE Magnesium Hydroxide 45 ml 11/21/19 12:50 11/21/19 13:00 Gi Cocktail 45 Ml (Maalox/Lidocaine) PO 11/21/19 12:51 45 ml STAT ONE Administration Morphine Sulfate 4 mg 11/21/19 12:50 11/21/19 13:00 Morphine Sulfate 4 Mg Inj IV 11/21/19 12:51 4 mg STAT ONE Administration Morphine Sulfate Confirm 11/21/19 12:54 Morphine Sulfate 4 Mg Inj Administered 11/21/19 12:55 Dose 4 mg .ROUTE .STK-MED ONE Ondansetron HCl 4 mg 11/21/19 12:50 11/21/19 13:00 Zofran 4 Mg/2 Ml Vial IV 11/21/19 12:51 4 mg STAT ONE Administration Ondansetron HCl Confirm 11/21/19 12:54 Zofran 4 Mg/2 Ml Vial Administered 11/21/19 12:55 Dose 4 mg .ROUTE .STK-MED ONE Lab/Rad Data: Laboratory Result Diagrams 11/21/19 13:08 11/21/19 13:08 Laboratory Results 11/21/19 11/21/19 11/21/19 Range/Units 14:32 13:08 13:08 WBC (4.0-10.5) K/mm3 RBC (4.1-5.4) M/mm3 Hgb (12.0-16.0) gm/dl Hct (35-47) % MCV (78-100) fl MCH (26-32) pg MCHC (32-36) g/dl RDW (11.5-14.0) % Plt Count (150-450) K/mm3 MPV (7.5-11.0) fl Gran % (36.0-66.0) % Eos # (Auto) (0-0.5) Absolute Lymphs (auto) (1.0-4.6) Absolute Monos (auto) (0.0-1.3) Lymphocytes % (24.0-44.0) % Monocytes % (0.0-12.0) % Eosinophils % (0.00-5.0) % Basophils % (0.0-0.4) % Absolute Granulocytes (1.4-6.9) Basophils # (0-0.4) PT 20.1 H (9.95-12.35) SECONDS INR 1.76 (0.8-3.0) Sodium 132 L (137-145) mmol/L Potassium 3.5 (3.5-5.1) mmol/L Chloride 96 L (98-107) mmol/L Carbon Dioxide 28 (22-30) mmol/L Anion Gap 11.3 (5-15) MEQ/L BUN 14 (7-17) mg/dL Creatinine 1.06 H (0.52-1.04) mg/dL Estimated GFR 53.4 ML/MIN Glucose 111 H (74-106) mg/dL Calcium 9.1 (8.4-10.2) mg/dL Total Bilirubin 1.10 (0.2-1.3) mg/dL AST 22 (14-36) U/L ALT 12 (0-35) U/L Alkaline Phosphatase 89 (38-126) U/L Serum Total Protein 7.4 (6.3-8.2) g/dL Albumin 4.2 (3.5-5.0) g/dL Amylase 103 (30-110) U/L Lipase 156 (23-300) U/L Urine Color YELLOW (YELLOW) Urine Appearance CLEAR (CLEAR) Urine pH 8.0 (5-6) Ur Specific [place] 1.029 (1.005-1.025) Urine Protein NEGATIVE (Negative) Urine Ketones NEGATIVE (NEGATIVE) Urine Blood SMALL (0-5) Terry/ul Urine Nitrite NEGATIVE (NEGATIVE) Urine Bilirubin NEGATIVE (NEGATIVE) Urine Urobilinogen NEGATIVE (0-1) mg/dL Ur Leukocyte Esterase LARGE (NEGATIVE) Urine WBC (Auto) 11-15 (0-5) /HPF Urine RBC (Auto) 0-2 (0-2) /HPF U Epithel Cells (Auto) RARE (FEW) /HPF Urine Bacteria (Auto) RARE (NEGATIVE) /HPF Urine Culture Reflexed YES (NO) Urine Glucose NEGATIVE (NEGATIVE) mg/dL 11/21/19 Range/Units 13:08 WBC 5.6 (4.0-10.5) K/mm3 RBC 4.82 (4.1-5.4) M/mm3 Hgb 13.2 (12.0-16.0) gm/dl Hct 41.3 (35-47) % MCV 85.7 (78-100) fl MCH 27.4 (26-32) pg MCHC 32.0 (32-36) g/dl RDW 13.9 (11.5-14.0) % Plt Count 259 (150-450) K/mm3 MPV 10.8 (7.5-11.0) fl Gran % 53.1 (36.0-66.0) % Eos # (Auto) 0.11 (0-0.5) Absolute Lymphs (auto) 1.81 (1.0-4.6) Absolute Monos (auto) 0.65 (0.0-1.3) Lymphocytes % 32.4 (24.0-44.0) % Monocytes % 11.6 (0.0-12.0) % Eosinophils % 2.0 (0.00-5.0) % Basophils % 0.9 (0.0-0.4) % Absolute Granulocytes 2.96 (1.4-6.9) Basophils # 0.05 (0-0.4) PT (9.95-12.35) SECONDS INR (0.8-3.0) Sodium (137-145) mmol/L Potassium (3.5-5.1) mmol/L Chloride (98-107) mmol/L Carbon Dioxide (22-30) mmol/L Anion Gap (5-15) MEQ/L BUN (7-17) mg/dL Creatinine (0.52-1.04) mg/dL Estimated GFR ML/MIN Glucose (74-106) mg/dL Calcium (8.4-10.2) mg/dL Total Bilirubin (0.2-1.3) mg/dL AST (14-36) U/L ALT (0-35) U/L Alkaline Phosphatase (38-126) U/L Serum Total Protein (6.3-8.2) g/dL Albumin (3.5-5.0) g/dL Amylase (30-110) U/L Lipase (23-300) U/L Urine Color (YELLOW) Urine Appearance (CLEAR) Urine pH (5-6) Ur Specific [place] (1.005-1.025) Urine Protein (Negative) Urine Ketones (NEGATIVE) Urine Blood (0-5) Terry/ul Urine Nitrite (NEGATIVE) Urine Bilirubin (NEGATIVE) Urine Urobilinogen (0-1) mg/dL Ur Leukocyte Esterase (NEGATIVE) Urine WBC (Auto) (0-5) /HPF Urine RBC (Auto) (0-2) /HPF U Epithel Cells (Auto) (FEW) /HPF Urine Bacteria (Auto) (NEGATIVE) /HPF Urine Culture Reflexed (NO) Urine Glucose (NEGATIVE) mg/dL - Progress Progress: improved, re-examined Progress Note: 11/21/19 15:03 79 years old is evaluated for upper abdominal pain with vomiting. Patient is given GI cocktail and morphine along with a small bolus of fluid, on reevaluation feeling much improved. She rates her pain 1/10. No vomiting while in the ER. Normal white count, grossly unremarkable chemistries. I have obtained CT with contrast which is negative for any acute findings like acute pancreatitis, colitis, perforation, cholecystitis. With her presentation it seems more like a gastritis/acid reflux, will start her on Protonix along with Zofran as needed. No signs of acute abdomen on reevaluation. Do not think she needs any further work-up and is stable for discharge. Discussed signs symptoms of worsening needing return to ER which she seemed understanding. Counseled pt/family regarding: lab results, diagnosis, need for follow-up, rad results - Departure Departure Disposition: Home Clinical Impression: Gastritis Qualifiers: Gastritis type: unspecified gastritis Chronicity: acute Gastritis bleeding: without bleeding Qualified Code(s): K29.00 - Acute gastritis without bleeding Condition: Stable Critical Care Time: No Referrals: ANTHONY SANTOS [Primary Care Provider] - Follow Up with PCP/3 days Instructions: Acute Abdomen (Belly Pain), Gastritis (DC) Additional Instructions: Follow-up with primary care for reevaluation. Take Zofran as needed. Drink plenty of fluids. Return to ER for any worsening. Prescriptions: Ondansetron ODT 4 MG [Zofran Odt 4 mg] 4 mg PO Q6H PRN PRN #10 tab.rapdis PRN Reason: Vomiting PANTOPRAZOLE 40 mg Tablet [Protonix 40MG Tablet] 40 mg PO QAM #30 tab
[2019-11-21 14:14] VITALS: BP 141/79; PULSE 63
[2019-11-21 14:48] LABS: Appearance CLEAR (CLEAR); Bacteria RARE /HPF (NEGATIVE); Bilirubin NEGATIVE (NEGATIVE); Blood SMALL Ery/ul (0-5); Epithelial Cells RARE /HPF (FEW); Glucose NEGATIVE (NEGATIVE); Ketones NEGATIVE (NEGATIVE); Leukocyte Esterase LARGE (NEGATIVE); Nitrite NEGATIVE (NEGATIVE); Protein,Urine Dip NEGATIVE (Negative); RBC 0-2 /HPF (0-2); Specific Gravity 1.029 (1.005-1.025); Urobilinogen NEGATIVE mg/dL (0-1)
[2019-11-21 15:08] VITALS: O2SAT 96
--- NOTE | 2019-11-21 19:18 | XRAY ---
Indication: Abdomen pain and vomiting. Multiple contiguous axial images obtained through the abdomen and pelvis using 80 cc Isovue 370 contrast only. Comparison: None Lung bases demonstrates left base pleural thickening with associated old left rib fractures and partially visualized 8/9 rib fixation hardware. No infiltrate or effusion. Heart is not enlarged. Small hiatal hernia. Noncontrasted stomach and bowel loops appear nonobstructed. Distal colon resection with left lower quadrant colostomy. Underlying ostomy demonstrates large abdominal wall defect at least 5 cm in diameter with herniated small/large bowel loops and omental fat. No incarceration/obstruction. Tiny splenic calcified granulomas and previous hysterectomy. Remaining liver, gallbladder, pancreas, spleen, adrenal glands, kidneys, ureters, and bladder appear unremarkable. Minimal aortoiliac calcifications. No AAA or pathologic retroperitoneal lymphadenopathy. Osseous structures intact with mild lumbosacral junction degenerative changes. Small fatty right inguinal hernia. Impression: 1. Partial distal colectomy with left lower quadrant colostomy. Underlying abdominal defect with herniated small/large bowel loops and omental fat. 2. Small hiatal hernia, small fatty right inguinal hernia, and left lung base pleural thickening with associated old rib fractures. Comment: Preliminary interpretation was made by C. No critical discrepancy.
== END 2019-11-21 15:30 | disposition home or self-care (01) ==
LOC: ED 12:24
DX: K29.00 Acute gastritis without bleeding (principal); Z86.79 Personal history of other diseases of the circulatory system; Z79.01 Long term (current) use of anticoagulants; I10 Essential (primary) hypertension; Z93.3 Colostomy status; Z85.038 Personal history of other malignant neoplasm of large intestine; Z90.49 Acquired absence of other specified parts of digestive tract
CPT/HCPCS: 36000; 36415; 74177; 80053; 81001; 82150; 83690; 85025; 85610; 87086; 96360; 96361; 96374; 96375; 99284; J2270; J2405; A9270-GY

== ENCOUNTER 2021-02-14 20:09 | Observation (INO) | payer MEDICARE ==
--- NOTE | 2021-02-14 20:19 | ERPHSYRPT ---
- History of Present Illness Time Seen by Provider: 02/14/21 20:19 Source: patient Exam Limitations: no limitations Physician History: This is a 80-year-old white female patient of Dr. Reyes who has a history of atrial fibrillation and is on Coumadin therapy who was brought in by EMS after suffering a witnessed fall. Patient lives alone. Patient, according to EMS and a neighbor witnessed the patient fall. There was no report of strokelike symptoms before the fall during the day. However patient was confused after the fall. She hit her head. This occurred approximately 1945 this evening. Patient has a history of osteoarthritis. She has had a hysterectomy past. She has a history of colorectal cancer and has a permanent left lower quadrant colostomy. Patient arrives via EMS with a c-collar in place. She arrives alert and oriented and moving all extremities. Timing/Duration: today Severity: mild Associated Symptoms: denies symptoms, No nausea, No vomiting, No abdominal pain, No shortness of breath, No chest pain Allergies/Adverse Reactions: Penicillins Allergy (Intermediate, Verified 02/14/21 21:23) pt cant rememer reaction. Sulfa (Sulfonamide Antibiotics) [Sulfa(Sulfonamide Antibiotics)] Allergy (Intermediate, Verified 02/14/21 21:23) pt cant remember reaction Home Medications: Warfarin Sodium 6 mg PO UD 10/13/19 [History] Lisinopril/Hydrochlorothiazide [Lisinopril-Hctz 20-12.5 mg Tab] 1 each PO DAILY 02/14/21 [History] Metoprolol Succinate 50 mg [Toprol Xl 50 MG] 50 mg PO DAILY 02/14/21 [His tory] Warfarin Sodium 8 mg PO UD 02/14/21 [History] Hx Tetanus, Diphtheria Vaccination/Date Given: (UNSURE) Hx Influenza Vaccination/Date Given: Yes Hx Pneumococcal Vaccination/Date Given: No Travel Risk - International Travel Have you traveled outside of the country in past 3 weeks: No - Coronavirus Screening Are you exhibiting any of the following symptoms?: No Close contact with a COVID-19 positive Pt in past 14-21 Days: No - Review of Systems Constitutional: No Symptoms Eyes: No Symptoms Ears, Nose, & Throat: No Symptoms Respiratory: No Symptoms Cardiac: No Symptoms Abdominal/Gastrointestinal: No Symptoms Genitourinary Symptoms: No Symptoms Musculoskeletal: Injury (Right shoulder) Skin: Other (Abrasion and mild ecchymosis at the lateral right eyebrow) Neurological: No Symptoms Psychological: No Symptoms Endocrine: No Symptoms Hematologic/Lymphatic: No Symptoms Immunological/Allergic: No Symptoms All Other Systems: Reviewed and Negative - Past Medical History Pertinent Past Medical History: Yes Neurological History: No Pertinent History ENT History: Cataracts Cardiac History: Other Respiratory History: No Pertinent History Endocrine Medical History: No Pertinent History Musculoskeletal History: Osteoarthritis GI Medical History: Colorectal Cancer History: No Pertinent History Psycho-Social History: No Pertinent History Female Reproductive Disorders: No Pertinent History Other Medical History: SOB. Pt notes she has some problems with her heart, but can't remember what they are. - Past Surgical History Past Surgical History: Yes Neuro Surgical History: No Pertinent History Cardiac: No Pertinent History Respiratory: No Pertinent History Gastrointestinal: Colon Resection Genitourinary: No Pertinent History Musculoskeletal: No Pertinent History Female Surgical History: Hysterectomy Other Surgical History: colostomy - Social History Smoking Status: Never smoker Exposure to second hand smoke: No Drug Use: none Patient Lives Alone: Yes - Nursing Vital Signs Nursing Vital Signs: Initial Vital Signs Temperature 101.1 F 02/14/21 20:38 Pulse Rate 92 H 02/14/21 20:38 Respiratory Rate 18 02/14/21 20:38 Blood Pressure 125/65 02/14/21 20:38 O2 Sat by Pulse Oximetry 100 02/14/21 20:38 Pain Scale Pain Intensity 5 - Physical Exam General Appearance: no apparent distress, alert, anxiety Eye Exam: PERRL/EOMI, eyes nml inspection Ears, Nose, Throat Exam: normal ENT inspection, moist mucous membranes Neck Exam: other (Patient arrived with c-collar in place.) Respiratory Exam: normal breath sounds, lungs clear, airway intact, No chest tenderness, No respiratory distress Cardiovascular Exam: regular rate/rhythm, normal heart sounds, normal peripheral pulses Gastrointestinal/Abdomen Exam: soft, normal bowel sounds, tenderness Pelvic Exam: not done Rectal Exam: not done Back Exam: normal inspection, normal range of motion, No CVA tenderness, No vertebral tenderness Extremity Exam: normal inspection, normal range of motion, pelvis stable Neurologic Exam: alert, oriented x 3, cooperative, hostel parent II-XII nml as tested, normal mood/affect, sensation nml Skin Exam: rash (Generalized red pruritic rash. Mild ecchymosis and abrasion ri ght lateral eyebrow) Lymphatic Exam: No adenopathy SpO2 Interpretation: normal O2 Delivery: Room Air - Course Nursing assessment & vital signs reviewed: Yes EKG Interpreted by Me: RATE (82), Sinus Rhythm, NORMAL AXIS, Right Bundle Branch Block, NORMAL ST-T, Other (No acute ischemic changes on today's EKG. When compared to EKG dated 10/27/2019, there is persistent prolonged ND interval and persistent right bundle branch block) Ordered Tests: Active Orders 24 hr Category Date Time Status Alarm Investigator STAT Care 02/14/21 20:30 Active Catheter-[place] Calderon STAT Care 02/14/21 20:29 Active EKG-ER Only STAT Care 02/14/21 20:29 Active IV Insertion STAT Care 02/14/21 20:29 Active IV Insertion-2nd Peripheral STAT Care 02/14/21 20:51 Active NPO (ED) STAT Care 02/14/21 20:29 Active POCT Glucose Check STAT Care 02/14/21 20:29 Active CERVICAL SPINE WO CONTRAST [CT] Stat Exams 02/14/21 20:12 Taken HEAD WITHOUT CONTRAST [CT] Stat Exams 02/14/21 20:31 Taken SHOULDER Stat Exams 02/14/21 21:09 Taken CBC W DIFF Stat Lab 02/14/21 18:35 Completed CMP Stat Lab 02/14/21 18:35 Completed Lactic Acid Stat Lab 02/14/21 20:45 Completed POCT GLUCOSE Stat Lab 02/14/21 20:54 Completed PROTIME WITH INR Stat Lab 02/14/21 18:35 Completed TROPONIN Q3H Lab 02/14/21 18:32 Completed TROPONIN Q3H Lab 02/15/21 00:00 Ordered TROPONIN Q3H Lab 02/15/21 03:00 Ordered TROPONIN Q3H Lab 02/15/21 06:00 Ordered TROPONIN Q3H Lab 02/15/21 09:00 Ordered Medication Summary Generic Name Dose Route Start Last Admin Trade Name Freq PRN Reason Stop Dose Admin Sodium Chloride 1,000 mls @ 100 mls/hr 02/14/21 20:30 02/14/21 20:36 Sodium Chloride 0.9% 1000 Ml IV 03/16/21 20:29 100 mls/hr .Q10H WILLIAM Administration Discontinued Medications Generic Name Dose Route Start Last Admin Trade Name Freq PRN Reason Stop Dose Admin Famotidine 40 mg 02/14/21 20:44 02/14/21 20:51 Pepcid 20 Mg Vial IV 02/14/21 20:45 40 mg STAT ONE Administration Famotidine Confirm 02/14/21 20:48 Pepcid 20 Mg Vial Administered 02/14/21 20:49 Dose 40 mg IV .STK-MED ONE Methylprednisolone Sodium Succinate 125 mg 02/14/21 20:44 02/14/21 20:50 Solu-Medrol 125 Mg IV 02/14/21 20:45 125 mg STAT ONE Administration Methylprednisolone Sodium Succinate Confirm 02/14/21 20:48 Solu-Medrol 125 Mg Administered 02/14/21 20:49 Dose 125 mg .ROUTE .STK-MED ONE Lab/Rad Data: Laboratory Result Diagrams 02/14/21 18:35 02/14/21 18:35 Laboratory Results 02/14/21 02/14/21 02/14/21 Range/Units 20:54 20:45 18:35 WBC (4.0-10.5) K/mm3 RBC (4.1-5.4) M/mm3 Hgb (12.0-16.0) gm/dl Hct (35-47) % MCV (78-100) fl MCH (26-32) pg MCHC (32-36) g/dl RDW (11.5-14.0) % Plt Count (150-450) K/mm3 MPV (7.5-11.0) fl Gran % (36.0-66.0) % Eos # (Auto) (0-0.5) Absolute Lymphs (auto) (1.0-4.6) Absolute Monos (auto) (0.0-1.3) Lymphocytes % (24.0-44.0) % Monocytes % (0.0-12.0) % Eosinophils % (0.00-5.0) % Basophils % (0.0-0.4) % Absolute Granulocytes (1.4-6.9) Basophils # (0-0.4) PT (9.95-12.35) SECONDS INR (0.8-3.0) Sodium (137-145) mmol/L Potassium (3.5-5.1) mmol/L Chloride (98-107) mmol/L Carbon Dioxide (22-30) mmol/L Anion Gap (5-15) MEQ/L BUN (7-17) mg/dL Creatinine (0.52-1.04) mg/dL Estimated GFR ML/MIN Glucose (74-106) mg/dL POC Glucometer 100 (74 to 106) mg/dL Lactic Acid 1.4 (0.4-2.0) Calcium (8.4-10.2) mg/dL Total Bilirubin (0.2-1.3) mg/dL AST (14-36) U/L ALT (0-35) U/L Alkaline Phosphatase (38-126) U/L Ammonia < 9 L (9-30) umol/L Troponin I (0.000-0.034) ng/mL Serum Total Protein (6.3-8.2) g/dL Albumin (3.5-5.0) g/dL 02/14/21 02/14/21 02/14/21 Range/Units 18:35 18:35 18:35 WBC 8.5 (4.0-10.5) K/mm3 RBC 4.74 (4.1-5.4) M/mm3 Hgb 12.9 (12.0-16.0) gm/dl Hct 40.1 (35-47) % MCV 84.6 (78-100) fl MCH 27.2 (26-32) pg MCHC 32.2 (32-36) g/dl RDW 13.9 (11.5-14.0) % Plt Count 244 (150-450) K/mm3 MPV 10.2 (7.5-11.0) fl Gran % 81.5 H (36.0-66.0) % Eos # (Auto) 0.60 H (0-0.5) Absolute Lymphs (auto) 0.52 L (1.0-4.6) Absolute Monos (auto) 0.45 (0.0-1.3) Lymphocytes % 6.1 L (24.0-44.0) % Monocytes % 5.3 (0.0-12.0) % Eosinophils % 7.0 H (0.00-5.0) % Basophils % 0.1 (0.0-0.4) % Absolute Granulocytes 6.96 H (1.4-6.9) Basophils # 0.01 (0-0.4) PT 31.1 H (9.95-12.35) SECONDS INR 2.72 (0.8-3.0) Sodium 127 L (137-145) mmol/L Potassium 4.1 (3.5-5.1) mmol/L Chloride 98 (98-107) mmol/L Carbon Dioxide 23 (22-30) mmol/L Anion Gap 9.5 (5-15) MEQ/L BUN 13 (7-17) mg/dL Creatinine 1.07 H (0.52-1.04) mg/dL Estimated GFR 52.7 ML/MIN Glucose 115 H (74-106) mg/dL POC Glucometer (74 to 106) mg/dL Lactic Acid (0.4-2.0) Calcium 8.4 (8.4-10.2) mg/dL Total Bilirubin 1.10 (0.2-1.3) mg/dL AST 31 (14-36) U/L ALT 19 (0-35) U/L Alkaline Phosphatase 80 (38-126) U/L Ammonia (9-30) umol/L Troponin I (0.000-0.034) ng/mL Serum Total Protein 5.7 L (6.3-8.2) g/dL Albumin 3.3 L (3.5-5.0) g/dL 02/14/ Range/Units 18:32 WBC (4.0-10.5) K/mm3 RBC (4.1-5.4) M/mm3 Hgb (12.0-16.0) gm/dl Hct (35-47) % MCV (78-100) fl MCH (26-32) pg MCHC (32-36) g/dl RDW (11.5-14.0) % Plt Count (150-450) K/mm3 MPV (7.5-11.0) fl Gran % (36.0-66.0) % Eos # (Auto) (0-0.5) Absolute Lymphs (auto) (1.0-4.6) Absolute Monos (auto) (0.0-1.3) Lymphocytes % (24.0-44.0) % Monocytes % (0.0-12.0) % Eosinophils % (0.00-5.0) % Basophils % (0.0-0.4) % Absolute Granulocytes (1.4-6.9) Basophils # (0-0.4) PT (9.95-12.35) SECONDS INR (0.8-3.0) Sodium (137-145) mmol/L Potassium (3.5-5.1) mmol/L Chloride (98-107) mmol/L Carbon Dioxide (22-30) mmol/L Anion Gap (5-15) MEQ/L BUN (7-17) mg/dL Creatinine (0.52-1.04) mg/dL Estimated GFR ML/MIN Glucose (74-106) mg/dL POC Glucometer (74 to 106) mg/dL Lactic Acid (0.4-2.0) Calcium (8.4-10.2) mg/dL Total Bilirubin (0.2-1.3) mg/dL AST (14-36) U/L ALT (0-35) U/L Alkaline Phosphatase (38-126) U/L Ammonia (9-30) umol/L Troponin I < 0.012 (0.000-0.034) ng/mL Serum Total Protein (6.3-8.2) g/dL Albumin (3.5-5.0) g/dL - Progress Progress: improved, re-examined Progress Note: 02/14/21 20:59 CAT scan of the head without contrast shows a stable nonacute senile brain with old right thalamic lacunar infarct. No acute intracranial hemorrhage or other abnormality. CAT scan of the cervical spine without contrast shows mild multilevel degenerative changes. There is an old second rib fracture. There is minimal carotid calcifications. The remaining of the CT cervical spine without is negative. 02/14/21 21:29 We obtain clarification on the circumstances surrounding this patient's fall. Apparently, the neighbor spoke with the patient at 1945 and the patient was normal. The neighbor went to obtain supper for this patient and returned approximately 10 minutes later and the patient was on the ground on her porch confused. There was a head injury visible. Patient's mentation cleared by the time she arrived at the emergency department. Patient states that she does not recall why she fell. She arrives in no significant distress. She has no shortness of breath or chest pain. 02/14/21 21:42 Medical decision making: This patient is taking Coumadin. Her INR is therapeut ic. She fell and hit her head. Her CAT scan of her neck and cervical spine do not show anything acute. The circumstances are still unclear as to why she fell. She does have a low sodium of 127. Patient does live alone. We will bring her into the hospital place her in observation. I spoke with her primary care doctor, Dr. Reyes, and we will place her in observation on telemetry bed. We will continue serial troponin levels and neuro checks. We will also repeat the CAT scan of her head tomorrow afternoon Discussed with : Loki Counseled pt/family regarding: lab results, diagnosis, rad results - Departure Departure Disposition: Home Clinical Impression: Confusion, Head injury, Hyponatremia Condition: Stable Critical Care Time: No Referrals: [facility] [Primary Care Provider] -
[2021-02-14] MEDS ORDERED: Sodium Chloride 0.9% 1000 ML 1,000 ML IV SCH ×2 (20:30→23:57)
[2021-02-14] MEDS ORDERED: Sodium Chloride 0.9% 1000 ML 1,000 ML ONE (20:36)
[2021-02-14] MEDS ORDERED: solu-MEDROL 125 MG IV ONE (20:44)
[2021-02-14] MEDS ORDERED: Pepcid 20 MG VIAL IV ONE ×2 (20:44→20:48)
[2021-02-14] MEDS ORDERED: solu-MEDROL 125 MG ONE (20:48)
[2021-02-14 20:57] LABS: Absolute Neutrophil Ct (ANC) 6.96 (1.4-6.9); BASOPHIL % 0.1 % (0.0-0.4); Basophil (Absolute #) 0.01 (0-0.4); Hematocrit 40.1 % (35-47); Hemoglobin 12.9 gm/dl (12.0-16.0); Lymphocyte (Absolute #) 0.52 (1.0-4.6); Lymphocytes % 6.1 % (24.0-44.0); Mean Cell Volume 84.6 fl (78-100); Mean Corpuscular Hemoglobin 27.2 pg (26-32); Mean Corpuscular Hgb Concent. 32.2 g/dl (32-36); Mean Platelet Volume 10.2 fl (7.5-11.0); Monocyte (Absolute #) 0.45 (0.0-1.3); Monocytes % 5.3 % (0.0-12.0); Neutrophil % 81.5 % (36.0-66.0); Platelet Count 244 K/mm3 (150-450); Red Blood Count 4.74 M/mm3 (4.1-5.4); Red Cell Distribution Width 13.9 % (11.5-14.0); White Blood Count 8.5 K/mm3 (4.0-10.5)
[2021-02-14 21:02] LABS: INR 2.72 (0.8-3.0); PROTIME 31.1 SECONDS (9.95-12.35)
[2021-02-14 21:08] LABS: ALBUMIN 3.3 g/dL (3.5-5.0); ANION GAP 9.5 MEQ/L (5-15); BILIRUBIN,TOTAL 1.1 mg/dL (0.2-1.3); Calcium 8.4 mg/dL (8.4-10.2); Creatinine 1 1.07 mg/dL (0.52-1.04); EST GLOMERULAR FILTRATION RATE 52.7 ML/MIN; Potassium 4.1 mmol/L (3.5-5.1); Total Protein 5.7 g/dL (6.3-8.2)
[2021-02-14] MEDS ORDERED: TYLENOL 325 MG PO STA (21:48)
[2021-02-14 21:58] LABS: Appearance SLIGHTLY CLOUDY (CLEAR); Bilirubin NEGATIVE (NEGATIVE); Blood SMALL Ery/ul (0-5); Glucose NEGATIVE (NEGATIVE); Ketones TRACE (NEGATIVE); Leukocyte Esterase NEGATIVE (NEGATIVE); Mucus MANY /HPF (NEGATIVE); Nitrite NEGATIVE (NEGATIVE); Protein,Urine Dip 30 (Negative); Specific Gravity 1.023 (1.005-1.025); Urobilinogen 2 mg/dL (0-1)
[2021-02-14] MEDS ORDERED: TYLENOL 325 MG ONE (21:58)
[2021-02-14 22:39] LABS: Slide Review 1 YES
[2021-02-14 23:02] LABS: INFLUENZA A NEGATIVE (NEGATIVE); INFLUENZA B NEGATIVE (NEGATIVE); RESPIRATORY SYNCTIAL VIRUS NEGATIVE (Negative)
[2021-02-14] MEDS ORDERED: TYLENOL 325 MG PO PRN (23:57)
[2021-02-14] MEDS ORDERED: Zofran 4 MG/2 ML VIAL IV PRN (23:57)
[2021-02-15] MEDS ORDERED: Adacel Vial IM ONE ×2 (01:11→10:00)
[2021-02-15 05:07] LABS: Hematocrit 38.7 % (35-47); Hemoglobin 12.6 gm/dl (12.0-16.0); Mean Cell Volume 84.1 fl (78-100); Mean Corpuscular Hemoglobin 27.4 pg (26-32); Mean Corpuscular Hgb Concent. 32.6 g/dl (32-36); Mean Platelet Volume 10.3 fl (7.5-11.0); Platelet Count 218 K/mm3 (150-450); Red Cell Distribution Width 13.9 % (11.5-14.0); White Blood Count 8.5 K/mm3 (4.0-10.5)
[2021-02-15 05:22] LABS: ANION GAP 10.6 MEQ/L (5-15); Calcium 8.5 mg/dL (8.4-10.2); Creatinine 1 0.97 mg/dL (0.52-1.04); Potassium 4.1 mmol/L (3.5-5.1)
[2021-02-15 05:51] LABS: BAND 15 % (0.0-2.0); Lymphocytes 4 % (24-44); Neutrophils 81 % (36.0-66.0); Platelet Estimate NORMAL (NORMAL); Total Cells Counted 100
[2021-02-15] MEDS: solu-MEDROL 125 MG IV SCH ×2 (06:42→15:49)
--- NOTE | 2021-02-15 08:44 | XRAY ---
Indication: Found unresponsive. Right-sided weakness. Multiple contiguous axial images obtained through the head without contrast. Comparison: August 20, 2019. There remains age-appropriate global atrophy, moderate periventricular degenerative micro-ischemia bilaterally, and remote right thalamic lacunar infarct. No acute intracranial hemorrhage, abnormal extra-axial fluid collection, or mass effect. Fourth ventricle is midline without hydrocephalus. Bony calvarium intact. Visualized paranasal sinuses and mastoid air cells are clear. Impression: Again nonacute senile brain with right thalamic remote lacunar infarct.
--- NOTE | 2021-02-15 08:48 | XRAY ---
Indication: Found unresponsive. Right-sided weakness. Multiple contiguous axial images obtained through the cervical spine. Sagittal and coronal reformatted images obtained. Comparison: CTA neck August 21, 2019. Again age-appropriate osteopenia. Axial images negative for acute fracture, suspicious bony lesions, or spinal canal stenosis. There remains mild multilevel bilateral degenerative facet hypertrophy. Sagittal and coronal reformatted images demonstrates normal alignment again with minimal C4-C7 disc space narrowing and minimal 1-2 mm C4 anterolisthesis. No acute compression fracture or jumped facet. Normal appearing craniocervical junction. Visualized noncontrasted soft tissues again demonstrates minimal bilateral carotid calcifications and heterogeneous thyroid gland. Again incidental old left 2 rib fracture. Lung apices are clear. Impression: 1. Negative acute fracture. 2. Stable osteopenia, mild multilevel degenerative spondylosis, minimal C4 spondylolisthesis, old left 2 rib fracture, heterogeneous thyroid gland, and minimal bilateral carotid calcifications.
--- NOTE | 2021-02-15 08:50 | XRAY ---
Indication: Found unresponsive. Fever. Comparison: October 27, 2019. Portable chest unchanged again demonstrating chronic left base pleural effusion/pleural thickening, chunky subcarinal calcified node, osteopenia, moderate bony degenerative changes, and multiple old left rib fractures. Remaining heart and lungs unremarkable. No new/acute findings.
--- NOTE | 2021-02-15 08:52 | XRAY ---
Indication: Pain following fall. Comparison: None 3 view right shoulder demonstrates osteopenia and moderate glenohumeral/mild AC degenerative arthropathy. High riding humeral head commonly seen with rotator cuff tear. Incidental chunky mediastinal calcified nodes. No other bony, articular, or soft tissue abnormalities.
[2021-02-15 08:56] VITALS: O2SAT 98
[2021-02-15] MEDS ORDERED: BENADRYL 25 MG CAPSULE PO PRN (08:57)
[2021-02-15 09:40] LABS: ANION GAP 12.8 MEQ/L (5-15); BLOOD UREA NITROGEN 14 mg/dL (7-17); CHLORIDE 101 mmol/L (98-107); Calcium 8.9 mg/dL (8.4-10.2); Carbon Dioxide 21 mmol/L (22-30); Creatinine 1 0.87 mg/dL (0.52-1.04); EST GLOMERULAR FILTRATION RATE > 60.0 ML/MIN; Glucose 143 mg/dL (74-106); Potassium 3.9 mmol/L (3.5-5.1); SODIUM 131 mmol/L (137-145); TROPONIN < 0.012 ng/mL (0.000-0.034)
--- NOTE | 2021-02-15 10:50 | XRAY ---
Indication: Syncope. Sagittal, coronal, and axial MRI brain was performed without contrast using T1, T2, FLAIR, diffusion, and ADC sequences. Comparison: None Age-appropriate global atrophy and mild/moderate periventricular degenerative micro-ischemia signal bilaterally. Right thalamus remote lacunar infarct. No acute intracranial hemorrhage, abnormal extra-axial fluid collection, or mass effect. Diffusion images are negative for restricted signal. Fourth ventricle is midline. 7/8 cranial nerve complex bilaterally symmetric. Normal flow void signal within the major intracerebral circulation. Normal appearing craniocervical junction and sella turcica. Paranasal sinuses are clear. Impression: Atrophy and degenerative micro-ischemia within normal limits for patient's age. Remote lacunar infarct right thalamus. No acute intracranial abnormalities or evidence for evolving large vessel territorial stroke.
--- NOTE | 2021-02-15 11:30 | XRAY ---
Indication: Syncope. Two-dimensional sonogram and color Doppler imaging of the carotid arteries of the neck performed. Comparison: None Examination of the right carotid circulation demonstrates widely patent common carotid artery. There is minimal eccentric soft plaquing at the level of the bulb further extending into the origin internal carotid artery. PSV of the CCA is 83 cm/s. PSV of the ICA is 111 cm/s. ICA/CCA ratio is 1.3. Normal antegrade vertebral artery flow. Examination of the left carotid circulation demonstrates minimal eccentric calcified plaquing mid common carotid artery. There is mild eccentric calcified plaquing carotid bulb and origin internal carotid artery. PSV of the CCA is 85 cm/s. PSV of the ICA is 130 cm/s. ICA/CCA ratio 1.5. Normal antegrade vertebral artery flow. Impression: Minimal/mild arteriosclerotic plaquing bilaterally as detailed. Velocity measurements and ratios favor 50-69% stenosis on the left. No hemodynamically significant flow limiting stenosis on the right.
[2021-02-15] MEDS ORDERED: hydroDIURIL 25 MG PO SCH (12:00)
[2021-02-15] MEDS ORDERED: Zestril 20 MG PO SCH (12:00)
[2021-02-15] MEDS ORDERED: NON-FORMULARY ITEM (Lisinopril/Hydrochlorothiazide [Lisinopril-Hctz 20-12.5 Mg Tab] 1 EACH PO SCH (12:00)
[2021-02-15 13:22] VITALS: BP 131/82; PULSE 76
[2021-02-15] MEDS ORDERED: Toprol Xl 50 MG PO SCH (22:00)
[2021-02-16] MEDS ORDERED: Coumadin 5 MG PO SCH (18:00)
[2021-02-16] MEDS ORDERED: Coumadin 3 MG PO SCH (18:00)
--- NOTE | 2021-02-17 08:04 | ECHO ---
DATE OF PROCEDURE: 02/15/2021 CLINICAL INFORMATION: Syncope. The M-mode 2D, and Doppler echocardiogram including color flow Doppler shows the left ventricle is normal in size at 5.0 cm. There is no thrombus present. The septal wall thickness is at the upper limits of normal being 1.1 cm. The left ventricular posterior wall thickness is at the upper limits of normal being 1.1 cm. There is normal contractility of the left ventricle. The ejection fraction is calculated to be 81%. The mitral valve E to A inflow velocity ratio is decreased at 0.82 consistent with possible impaired left ventricular relaxation. The right ventricle is normal. The left atrium is mildly dilated with a dimension of 4.2 cm. The interatrial septum is intact. The right atrium is normal. The aortic valve opens well. There is no aortic regurgitation. The mitral valve is normal. There is mild tricuspid regurgitation. The right ventricular systolic pressure is calculated to be elevated at 34 mm of Mercury. The pulmonic valve is not well visualized. The aortic root is normal at 3.6 cm. There is no pericardial effusion present. IMPRESSION: 1) NORMAL CONTRACTILITY OF THE LEFT VENTRICLE. 2) BORDERLINE CONCENTRIC LEFT VENTRICULAR HYPERTROPHY. 3) POSSIBLE IMPAIRED LEFT VENTRICULAR RELAXATION. 4) MILD LEFT ATRIAL DILATATION. 5) MILD MITRAL REGURGITATION. 6) MILD PULMONARY HYPERTENSION.
[2021-02-17] MEDS ORDERED: Coumadin 3 MG PO SCH (18:00)
--- NOTE | 2021-02-25 11:30 | PCM.SSS ---
History of Present Illness - Chief Complaint Chief Complaint: Confusion, fall injury, head injury, mild hyponatremia, all ergic reaction Date: 02/15/21 History of Present Illness: is a 80 year old female. Pt. had an unwitnessed fall at home while neighbor had run to get some food. Pt. does not recall what happened and unsure how she got to where she was, she did sustain a facial injury/ contusion and mangled her glasses with the fall. - Review of Systems Constitutional: No Fever, No Chills Eyes: No Symptoms Ears, Nose, & Throat: No Symptoms Respiratory: No Cough, No Short Of Breath Cardiac: No Chest Pain, No Edema, No Syncope Abdominal/Gastrointestinal: No Abdominal Pain, No Nausea, No Vomiting, No Diarrhea Genitourinary Symptoms: No Dysuria Musculoskeletal: No Back Pain, No Neck Pain Skin: Rash (diffuse hives noted on the patients body, superficial laceration over the right eye noted) Neurological: No Dizziness, No Focal Weakness, No Sensory Changes Psychological: No Symptoms, Memory Loss Endocrine: No Symptoms Hematologic/Lymphatic: No Symptoms Immunological/Allergic: No Symptoms Medications & Allergies Home Medications: Home Medication List Warfarin Sodium 6 mg PO UD 10/13/19 [History Confirmed 02/14/21] Lisinopril/Hydrochlorothiazide [Lisinopril-Hctz 20-12.5 mg Tab] 1 each PO LUNCH 02/14/21 [History Confirmed 02/15/21] Metoprolol Succinate 50 mg [Toprol Xl 50 MG] 50 mg PO HS 02/14/21 [History Confirmed 02/15/21] Warfarin Sodium 8 mg PO UD 02/14/21 [History Confirmed 02/14/21] Methylprednisolone Packet [Medrol Dosepack] 4 mg PO UD #30 packet 02/15/21 [Rx] Allergies/Adverse Reactions: Allergies Allergy/AdvReac Type Severity Reaction Status Date / Time Penicillins Allergy Intermediate Verified 02/14/21 21:23 Sulfa (Sulfonamide Allergy Intermediate Verified 02/14/21 21:23 Antibiotics) [Sulfa(Sulfonamide Antibiotics)] - Past Medical History Past Medical History: Yes Neurological History: No Pertinent History ENT History: Cataracts Cardiac History: Other CARDIAC HISTORY: Arrhythmia Respiratory History: No Pertinent History Endocrine Medical History: No Pertinent History Musculoskelatal History: Osteoarthritis GI Medical History: Colorectal Cancer History: No Pertinent History Pyscho-Social History: No Pertinent History Reproductive Disorders: No Pertinent History Comment: SOB. Pt notes she has some problems with her heart, but can't remember what they are. - Past Surgical History Past Surgical History: Yes Neuro Surgical History: No Pertinent History Cardiac History: No Pertinent History Respiratory Surgery: No Pertinent History GI Surgical History: Colon Resection Genitourinary Surgical Hx: No Pertinent History Musculskeletal Surgical Hx: No Pertinent History Female Surgical History: Hysterectomy Other Surgical History: colostomy - Social History Smoking Status: Never smoker Exposure to second hand smoke: No Alcohol: None Drug Use: none - Physical Exam General Appearance: no apparent distress, alert Neurologic Exam: alert, oriented x 3, cooperative, normal mood/affect, nml cerebellar function, nml station & gait, sensation nml, No motor deficits Eye Exam: PERRL/EOMI, eyes nml inspection Ears, Nose, Throat Exam: normal ENT inspection, TMs normal, pharynx normal, moist mucous membranes Neck Exam: normal inspection, non-tender, supple, full range of motion Respiratory Exam: normal breath sounds, lungs clear, No respiratory distress Cardiovascular Exam: regular rate/rhythm, normal heart sounds, normal peripheral pulses Gastrointestinal/Abdomen Exam: soft, normal bowel sounds, No tenderness, No mass Back Exam: normal inspection, normal range of motion, No CVA tenderness, No vertebral tenderness Extremity Exam: normal inspection, normal range of motion, pelvis stable Skin Exam: normal color, warm, dry, No rash Lymphatic Exam: No adenopathy Results - Labs Lab/Micro Results: Microbiology 02/14/21 18:35 Blood Culture Gram Stain - Final Blood Not Reportable Blood Culture - Final NO GROWTH 02/14/21 22:20 Blood Culture Gram Stain - Final Blood Not Reportable Blood Culture - Final NO GROWTH 02/14/21 21:49 Urine Culture - Final Catherized NO GROWTH Assessment/Plan (1) Head injury Status: Acute Code(s): S09.90XA - UNSPECIFIED INJURY OF HEAD, INITIAL ENCOUNTER (2) Hyponatremia Status: Acute Code(s): E87.1 - HYPO-OSMOLALITY AND HYPONATREMIA (3) Syncope Status: Acute Code(s): R55 - SYNCOPE AND COLLAPSE Hospital Summary - Hospital Course Hospital Course: Pt. was admitted for further evaluation and observation, repeat ct did not show any signs of CVA or internal bleeding, evaluations did not find any etiology for the event, cardiac and cerebrovascular evaluations were negative, it was felt the patient could go home late the next (saturday) afternoon. Pt. did have a rash which we will treat with prednisone and benadryl orally. Pt. may have taken cleocin and this was felt to be the etiology, but later confirmed the patient is allergic to losartan. - Vitals & Intake/Output Vital Signs: Vital Signs Temperature 98.4 F 02/15/21 12:00 Pulse Rate 76 02/15/21 12:00 Respiratory Rate 17 02/15/21 12:00 Blood Pressure 131/82 02/15/21 12:00 O2 Sat by Pulse Oximetry 98 02/15/21 12:00 - Lab Result Diagrams: 02/15/21 04:35 02/15/21 09:00 Micro Results-Entire Visit: Microbiology 02/14/21 18:35 Blood Culture Gram Stain - Final Blood Not Reportable Blood Culture - Final NO GROWTH 02/14/21 22:20 Blood Culture Gram Stain - Final Blood Not Reportable Blood Culture - Final NO GROWTH 02/14/21 21:49 Urine Culture - Final Catherized NO GROWTH - Procedures and Test Procedures and Tests throughout Hospitalization: Therapy Orders & Screens 02/14/21 23:57 EKG REPEAT IN AM Comment: - Discharge Discharge Date: 02/15/21 Disposition: Home, Self-Care Condition: Stable Prescriptions: New Methylprednisolone Packet [Medrol Dosepack] 4 mg PO UD #30 packet Continue Warfarin Sodium 6 mg PO UD Metoprolol Succinate 50 mg [Toprol Xl 50 MG] 50 mg PO HS Warfarin Sodium 8 mg PO UD Lisinopril/Hydrochlorothiazide [Lisinopril-Hctz 20-12.5 mg Tab] 1 each PO LUNCH Instructions: Preventing Falls in the Older Adult, Skin Rash (DC), Preventing Falls Additional Instructions: DO NOT TAKE ANY MORE OF CLEOCIN OR CLINDAMYCIN. DISCARD ANY OF THIS MEDICATION THAT YOU HAVE LEFT. Follow up with: ANTHONY SANTOS [Primary Care Provider] - 02/17/21 10:45 am
== END 2021-02-15 16:28 | disposition home or self-care (01) ==
LOC: ED 20:09 → MED SURG 23:45
PROVIDERS: ADMIT Family Medicine; ATTEND Family Medicine
DX: S09.90XA Unspecified injury of head, initial encounter (principal); W19.XXXA Unspecified fall, initial encounter; E87.1 Hypo-osmolality and hyponatremia; I48.20 Chronic atrial fibrillation, unspecified; Z79.01 Long term (current) use of anticoagulants; Z79.899 Other long term (current) drug therapy; Z20.828 Contact with and (suspected) exposure to other viral communicable diseases; R55 Syncope and collapse
CPT/HCPCS: 0241U; 36000; 36415; 51702; 70450; 70551; 71045; 72125; 73030; 80048; 80053; 81001; 82140; 82947; 83605; 84484; 85025; 85610; 87040; 87086; 93005; 93041; 93268; 93306; 93880; 96360; 96361; 96374; 96375; 99285; G0378; 90715; J2930; A9270-GY

== ENCOUNTER 2021-04-04 09:34 | Observation (INO) | payer MEDICARE ==
--- NOTE | 2021-04-04 09:55 | ERPHSYRPT ---
- History of Present Illness Time Seen by Provider: 04/04/21 09:40 Source: patient Exam Limitations: no limitations Physician History: The patient is a 72-year-old female with a past medical significant for hypertension, atrial fibrillation, and a recent dental procedure in which she is currently taking clindamycin and is also anticoagulated with Coumadin presents with a chief complaint of syncope. Onset reported was this morning sometime after the son is already,. She reportedly does not remember passing out and awoke on the floor behind her couch. She was able to get up on her own and crawled to a phone and eventually called her grand daughter who came to her house to provide her assistance. EMS was called and eventually transported the patient to the emergency department. Currently she has no complaints or injuries currently She had no described prodrome but does remember her heart beating rapidly before briefly losing consciousness. She denies recent illness, chest pain, shortness of breath, headache, neck pain, nausea, vomiting, diarrhea, melena or hematochezia. She reportedly follows with a family service worker located in [place] and has an appointment today at 3 PM. Her granddaughter eventually arrived to the emergency department and provided details pertaining to the HPI. The patient reportedly lives alone. Associated Symptoms: syncope, other (Palpitations), No nausea, No vomiting, No shortness of breath, No diaphoresis, No cough Allergies/Adverse Reactions: losartan Allergy (Severe, Verified 04/04/21 10:01) syncope listed in dr carrillo discharge notes Penicillins Allergy (Intermediate, Verified 04/04/21 10:01) pt cant rememer reaction. Sulfa (Sulfonamide Antibiotics) [Sulfa(Sulfonamide Antibiotics)] Allergy (Intermediate, Verified 04/04/21 10:01) pt cant remember reaction Home Medications: Warfarin Sodium 3 mg PO UD 10/13/19 [History] Lisinopril/Hydrochlorothiazide [Lisinopril-Hctz 20-12.5 mg Tab] 1 each PO DAILY 02/14/21 [History] Metoprolol Succinate 50 mg [Toprol Xl 50 MG] 50 mg PO HS 02/14/21 [History] Warfarin Sodium 4 mg PO UD 02/14/21 [History] Donepezil HCl 10 mg [Aricept 10 MG] 10 mg PO HS 04/04/21 [History] Hx Tetanus, Diphtheria Vaccination/Date Given: (UNSURE) Hx Influenza Vaccination/Date Given: Yes Hx Pneumococcal Vaccination/Date Given: No Travel Risk - Vaccine Status Have you recieved a Covid-19 vaccination: No - Review of Systems Constitutional: No Fever Respiratory: No Cough Cardiac: Palpitations, Syncope, No Chest Pain Abdominal/Gastrointestinal: No Abdominal Pain, No Nausea, No Vomiting, No Diarrhea, No Constipation Genitourinary Symptoms: No Dysuria Musculoskeletal: No Back Pain, No Neck Pain All Other Systems: Reviewed and Negative - Past Medical History Pertinent Past Medical History: Yes Neurological History: No Pertinent History ENT History: Cataracts Cardiac History: Other Respiratory History: No Pertinent History Endocrine Medical History: No Pertinent History Musculoskeletal History: Osteoarthritis GI Medical History: Colorectal Cancer History: No Pertinent History Psycho-Social History: No Pertinent History Female Reproductive Disorders: No Pertinent History Other Medical History: SOB. Pt notes she has some problems with her heart, but can't remember what they are. - Past Surgical History Past Surgical History: Yes Neuro Surgical History: No Pertinent History Cardiac: No Pertinent History Respiratory: No Pertinent History Gastrointestinal: Colon Resection Genitourinary: No Pertinent History Musculoskeletal: No Pertinent History Female Surgical History: Hysterectomy Other Surgical History: colostomy - Social History Smoking Status: Never smoker Exposure to second hand smoke: No Drug Use: none Patient Lives Alone: Yes - Nursing Vital Signs Nursing Vital Signs: Initial Vital Signs Temperature 98.1 F 04/04/21 09:36 Pulse Rate 80 04/04/21 09:36 Respiratory Rate 17 04/04/21 09:36 Blood Pressure 109/71 04/04/21 09:36 O2 Sat by Pulse Oximetry 99 04/04/21 09:36 Pain Scale Pain Intensity 0 - Physical Exam General Appearance: no apparent distress Eye Exam: PERRL/EOMI, No scleral icterus, No pale conjunctivae, No photophobia Ears, Nose, Throat Exam: moist mucous membranes, No pharyngeal erythema, No tonsillar exudate Neck Exam: non-tender, supple, other (No midline cervical spine tenderness, crepitus or step-offs.), No JVD Respiratory Exam: normal breath sounds, lungs clear, airway intact, No chest tenderness, No respiratory distress, No diminished breath sounds Cardiovascular Exam: regular rate/rhythm, normal heart sounds, normal peripheral pulses, No murmur, No friction rub, No gallop Gastrointestinal/Abdomen Exam: soft, other (Colostomy bag noted to the left lower quadrant and appeared to contain brown stool with no blood or melena), No tenderness, No distention Pelvic Exam: not done Rectal Exam: normal exam, No black stool, No blood Back Exam: normal inspection, No vertebral tenderness, No point tenderness Extremity Exam: normal inspection, calf tenderness, joint swelling, No swelling, No tenderness Neurologic Exam: alert, oriented x 3, cooperative Skin Exam: normal color, warm, dry, No rash, No petechiae, No jaundice SpO2 Interpretation: normal - Course Nursing assessment & vital signs reviewed: Yes EKG Interpreted by Me: RATE, Sinus Rhythm, Left Parker Deviation, Right Bundle Branch Block, Other (Negative for STEMI) - Radiology Exams Chest X-ray Interpretation: Reviewed by me (Evidence of old healed rib fractures and hardware to the ribs otherwise without any acute cardiopulmonary process.) - CT Exams Head CT Interpretation: Negative (Evidence of an old lacunar infarct but with no acute changes and evidence of microvascular disease. No evidence of i ntracranial hemorrhage.) Ordered Tests: Active Orders 24 hr Category Date Time Status Insurance Law Specialist STAT Care 04/04/21 09:53 Active EKG-ER Only STAT Care 04/04/21 09:51 Active IV Insertion STAT Care 04/04/21 09:51 Active CHEST 2 VIEWS (PA AND LAT) Stat Exams 04/04/21 09:52 Completed HEAD WITHOUT CONTRAST [CT] Stat Exams 04/04/21 09:53 Completed BMP Stat Lab 04/04/21 10:00 Completed CBC W DIFF Stat Lab 04/04/21 10:00 Completed CK-Creatinine Phosphokinase Stat Lab 04/04/21 10:00 Completed CULTURE,URINE Stat Lab 04/04/21 10:00 Received FECAL OCCULT BLOOD - SCREENING Stat Lab 04/04/21 10:00 Completed MAGNESIUM Stat Lab 04/04/21 10:00 Completed NT PRO BNP Stat Lab 04/04/21 10:00 Completed PROTIME WITH INR Stat Lab 04/04/21 10:00 Completed TROPONIN Q3H Lab 04/04/21 10:00 Completed TROPONIN Q3H Lab 04/04/21 13:00 Ordered TROPONIN Q3H Lab 04/04/21 16:00 Ordered TROPONIN Q3H Lab 04/04/21 19:00 Ordered TROPONIN Q3H Lab 04/04/21 22:00 Ordered UA W/RFX UR CULTURE Stat Lab 04/04/21 10:00 Completed Transfer Order Routine Transfer 04/04/21 Ordered Medication Summary Discontinued Medications Generic Name Dose Route Start Last Admin Trade Name [place] PRN Reason Stop Dose Admin Sodium Chloride 1,000 mls @ 999 mls/hr 04/04/21 10:36 04/04/21 12:10 Sodium Chloride 0.9% 1000 Ml IV 04/04/21 11:36 Infused .Q1H1M STA Infusion Sodium Chloride Confirm 04/04/21 10:47 Sodium Chloride 0.9% 1000 Ml Administered 04/04/21 10:48 Dose 1,000 mls @ ud .ROUTE .STK-MED ONE Lab/Rad Data: Laboratory Result Diagrams 04/04/21 10:00 04/04/21 10:00 Laboratory Results 04/04/21 04/04/21 04/04/21 Range/Units 10:12 10:00 10:00 WBC (4.0-10.5) K/mm3 RBC (4.1-5.4) M/mm3 Hgb (12.0-16.0) gm/dl Hct (35-47) % MCV (78-100) fl MCH (26-32) pg MCHC (32-36) g/dl RDW (11.5-14.0) % Plt Count (150-450) K/mm3 MPV (7.5-11.0) fl Gran % (36.0-66.0) % Eos # (Auto) (0-0.5) Absolute Lymphs (auto) (1.0-4.6) Absolute Monos (auto) (0.0-1.3) Lymphocytes % (24.0-44.0) % Monocytes % (0.0-12.0) % Eosinophils % (0.00-5.0) % Basophils % (0.0-0.4) % Absolute Granulocytes (1.4-6.9) Basophils # (0-0.4) PT (9.4-12.5) SECONDS INR (0.8-3.0) Sodium (137-145) mmol/L Potassium (3.5-5.1) mmol/L Chloride (98-107) mmol/L Carbon Dioxide (22-30) mmol/L Anion Gap (5-15) MEQ/L BUN (7-17) mg/dL Creatinine (0.52-1.04) mg/dL Estimated GFR ML/MIN Glucose (74-106) mg/dL Calcium (8.4-10.2) mg/dL Magnesium (1.6-2.3) mg/dL Creatine Kinase (30-135) U/L Troponin I < 0.012 (0.000-0.034) ng/mL NT-Pro-B Natriuret Pep (0-1800) pg/mL Urine Color (YELLOW) Urine Appearance (CLEAR) Urine pH (5-6) Ur Specific Vega (1.005-1.025) Urine Protein (Negative) Urine Ketones (NEGATIVE) Urine Blood (0-5) Terry/ul Urine Nitrite (NEGATIVE) Urine Bilirubin (NEGATIVE) Urine Urobilinogen (0-1) mg/dL Ur Leukocyte Esterase (NEGATIVE) Urine WBC (Auto) (0-5) /HPF Urine RBC (Auto) (0-2) /HPF U Hyaline Cast (Auto) (0-2) /LPF U Epithel Cells (Auto) (FEW) /HPF Urine Bacteria (Auto) (NEGATIVE) /HPF Urine Mucus (Auto) (NEGATIVE) /HPF Urine Culture Reflexed (NO) Urine Glucose (NEGATIVE) mg/dL Stool Occult Blood NEGATIVE (NEGATIVE) SARS-CoV-2 (PCR) NEGATIVE (NEGATIVE) Slides for Path Review 04/04/21 04/04/21 04/04/21 Range/Units 10:00 10:00 10:00 WBC (4.0-10.5) K/mm3 RBC (4.1-5.4) M/mm3 Hgb (12.0-16.0) gm/dl Hct (35-47) % MCV (78-100) fl MCH (26-32) pg MCHC (32-36) g/dl RDW (11.5-14.0) % Plt Count (150-450) K/mm3 MPV (7.5-11.0) fl Gran % (36.0-66.0) % Eos # (Auto) (0-0.5) Absolute Lymphs (auto) (1.0-4.6) Absolute Monos (auto) (0.0-1.3) Lymphocytes % (24.0-44.0) % Monocytes % (0.0-12.0) % Eosinophils % (0.00-5.0) % Basophils % (0.0-0.4) % Absolute Granulocytes (1.4-6.9) Basophils # (0-0.4) PT 21.1 H (9.4-12.5) SECONDS INR 1.79 (0.8-3.0) Sodium 131 L (137-145) mmol/L Potassium 4.2 (3.5-5.1) mmol/L Chloride 97 L (98-107) mmol/L Carbon Dioxide 26 (22-30) mmol/L Anion Gap 12.2 (5-15) MEQ/L BUN 23 H (7-17) mg/dL Creatinine 1.25 H (0.52-1.04) mg/dL Estimated GFR 44.1 ML/MIN Glucose 115 H (74-106) mg/dL Calcium 9.1 (8.4-10.2) mg/dL Magnesium 1.9 (1.6-2.3) mg/dL Creatine Kinase 52 (30-135) U/L Troponin I (0.000-0.034) ng/mL NT-Pro-B Natriuret Pep 275 (0-1800) pg/mL Urine Color YULI (YELLOW) Urine Appearance SLIGHTLY CLOUDY (CLEAR) Urine pH 5.0 (5-6) Ur Specific Vega 1.020 (1.005-1.025) Urine Protein 30 (Negative) Urine Ketones NEGATIVE (NEGATIVE) Urine Blood NEGATIVE (0-5) Terry/ul Urine Nitrite NEGATIVE (NEGATIVE) Urine Bilirubin NEGATIVE (NEGATIVE) Urine Urobilinogen 2 (0-1) mg/dL Ur Leukocyte Esterase NEGATIVE (NEGATIVE) Urine WBC (Auto) 3-5 (0-5) /HPF Urine RBC (Auto) 0-2 (0-2) /HPF U Hyaline Cast (Auto) >50 (0-2) /LPF U Epithel Cells (Auto) NONE (FEW) /HPF Urine Bacteria (Auto) RARE (NEGATIVE) /HPF Urine Mucus (Auto) MANY (NEGATIVE) /HPF Urine Culture Reflexed YES (NO) Urine Glucose NEGATIVE (NEGATIVE) mg/dL Stool Occult Blood (NEGATIVE) SARS-CoV-2 (PCR) (NEGATIVE) Slides for Path Review 04/04/21 Range/Units 10:00 WBC 10.4 (4.0-10.5) K/mm3 RBC 4.58 (4.1-5.4) M/mm3 Hgb 12.8 (12.0-16.0) gm/dl Hct 38.6 (35-47) % MCV 84.3 (78-100) fl MCH 27.9 (26-32) pg MCHC 33.2 (32-36) g/dl RDW 14.2 H (11.5-14.0) % Plt Count 253 (150-450) K/mm3 MPV 9.4 (7.5-11.0) fl Gran % 94.8 H (36.0-66.0) % Eos # (Auto) 0.04 (0-0.5) Absolute Lymphs (auto) 0.27 L (1.0-4.6) Absolute Monos (auto) 0.22 (0.0-1.3) Lymphocytes % 2.6 L (24.0-44.0) % Monocytes % 2.1 (0.0-12.0) % Eosinophils % 0.4 (0.00-5.0) % Basophils % 0.1 (0.0-0.4) % Absolute Granulocytes 9.84 H (1.4-6.9) Basophils # 0.01 (0-0.4) PT (9.4-12.5) SECONDS INR (0.8-3.0) Sodium (137-145) mmol/L Potassium (3.5-5.1) mmol/L Chloride (98-107) mmol/L Carbon Dioxide (22-30) mmol/L Anion Gap (5-15) MEQ/L BUN (7-17) mg/dL Creatinine (0.52-1.04) mg/dL Estimated GFR ML/MIN Glucose (74-106) mg/dL Calcium (8.4-10.2) mg/dL Magnesium (1.6-2.3) mg/dL Creatine Kinase (30-135) U/L Troponin I (0.000-0.034) ng/mL NT-Pro-B Natriuret Pep (0-1800) pg/mL Urine Color (YELLOW) Urine Appearance (CLEAR) Urine pH (5-6) Ur Specific Vega (1.005-1.025) Urine Protein (Negative) Urine Ketones (NEGATIVE) Urine Blood (0-5) Terry/ul Urine Nitrite (NEGATIVE) Urine Bilirubin (NEGATIVE) Urine Urobilinogen (0-1) mg/dL Ur Leukocyte Esterase (NEGATIVE) Urine WBC (Auto) (0-5) /HPF Urine RBC (Auto) (0-2) /HPF U Hyaline Cast (Auto) (0-2) /LPF U Epithel Cells (Auto) (FEW) /HPF Urine Bacteria (Auto) (NEGATIVE) /HPF Urine Mucus (Auto) (NEGATIVE) /HPF Urine Culture Reflexed (NO) Urine Glucose (NEGATIVE) mg/dL Stool Occult Blood (NEGATIVE) SARS-CoV-2 (PCR) (NEGATIVE) Slides for Path Review YES - Progress Progress: unchanged Progress Note: 04/04/21 10:11 It appears the patient had carotid Dopplers on February 15, 2021 which shows some left carotid stenosis. She also had a brain MRI at that time that showed some micro vascular ischemic changes but otherwise with no evidence of stroke or mass. An EKG obtained on February 14, 2021 showed a right bundle branch block and appears similar to the EKG obtained today. 04/04/21 10:38 The patient's creatinine slightly up at 1.25 and increased from 0.94 on March 14, 2021. BUN is slightly up as well. Patient also has what appears to be hyponatremia hypochloremia but this is around her baseline. Some of this picture may represent a mild dehydration component for which I will administer 1 L of normal saline for. 04/04/21 11:[address] Reyes, patient's PCP, and discussed the case with him. He agreed to admit for observation on tele. Requested serial troponins. Patient may benefit from a holter monitor at discharge but this will be at the discretion of Dr. Reyes. Discussed with Dr.: Other (Dr. Reyes) Counseled pt/family regarding: lab results, diagnosis, need for follow-up, rad results - Departure Departure Disposition: Extended Care Facility Clinical Impression: Syncope and collapse, Palpitations, Syncope, History of atrial fibrillation, Hx of essential hypertension, Chronic hyponatremia, Hx of fall Condition: Stable Critical Care Time: No
[2021-04-04 10:12] LABS: Absolute Neutrophil Ct (ANC) 9.84 (1.4-6.9); BASOPHIL % 0.1 % (0.0-0.4); Basophil (Absolute #) 0.01 (0-0.4); Eosinophil % 0.4 % (0.00-5.0); Eosinophil (Absolute #) 0.04 (0-0.5); Hematocrit 38.6 % (35-47); Hemoglobin 12.8 gm/dl (12.0-16.0); Lymphocyte (Absolute #) 0.27 (1.0-4.6); Lymphocytes % 2.6 % (24.0-44.0); Mean Cell Volume 84.3 fl (78-100); Mean Corpuscular Hemoglobin 27.9 pg (26-32); Mean Corpuscular Hgb Concent. 33.2 g/dl (32-36); Mean Platelet Volume 9.4 fl (7.5-11.0); Monocyte (Absolute #) 0.22 (0.0-1.3); Monocytes % 2.1 % (0.0-12.0); Neutrophil % 94.8 % (36.0-66.0); Platelet Count 253 K/mm3 (150-450); Red Blood Count 4.58 M/mm3 (4.1-5.4); Red Cell Distribution Width 14.2 % (11.5-14.0); White Blood Count 10.4 K/mm3 (4.0-10.5)
[2021-04-04 10:16] LABS: INR 1.79 (0.8-3.0); PROTIME 21.1 SECONDS (9.4-12.5)
[2021-04-04 10:29] LABS: ANION GAP 12.2 MEQ/L (5-15); Calcium 9.1 mg/dL (8.4-10.2); Creatinine 1 1.25 mg/dL (0.52-1.04); EST GLOMERULAR FILTRATION RATE 44.1 ML/MIN; MAGNESIUM 1.9 mg/dL (1.6-2.3); Potassium 4.2 mmol/L (3.5-5.1)
[2021-04-04] MEDS ORDERED: Sodium Chloride 0.9% 1000 ML 1,000 ML IV STA (10:36)
[2021-04-04] MEDS ORDERED: Sodium Chloride 0.9% 1000 ML 1,000 ML ONE ×2 (10:47→21:09)
--- NOTE | 2021-04-04 11:12 | XRAY ---
Exam: CT of the head without IV contrast from 04/04/2021. CTDI: 53.92 mGy Comparison: CT of the head without IV contrast from 02/14/2021. Indication: 80-year-old female with fall; patient takes warfarin; possible intracranial hemorrhage. Technique: Non-IV contrast axial images were obtained through the brain. Reconstructed coronal and sagittal images were created and reviewed. Findings: The ventricles appear of unremarkable size representing no change. No focal mass effect or midline shift is seen. I see no evidence of acute intracranial parenchymal hemorrhage, subarachnoid hemorrhage, or subdural or epidural hematoma. There is moderate bilateral patchy periventricular and subcortical white matter changes consistent with chronic small vessel ischemic disease. This appears similar to 02/14/2021. Also, I believe there is an old lacunar infarct at the lateral margin right thalamus representing no change. No new low attenuation infarct is seen. There is significant atherosclerotic vascular calcification within both distal vertebral arteries, left greater than right. I also note atherosclerotic vascular calcification within both carotid siphons. The calvarium of the skull appears intact without fracture. There is minimal chronic mucosal thickening within the inferior posterior margin of the left maxillary sinus. This is unchanged. The remainder of the paranasal sinuses is clear without air-fluid levels. The mastoid air cells are clear without effusion. The orbits appear grossly unremarkable. Impression: 1. I see no evidence of acute intracranial bleed. 2. Moderate bilateral periventricular and subcortical white matter changes are seen consistent with chronic small vessel ischemic white matter disease. I also note an old lacunar infarct at the lateral margin of the right thalamus representing no change. 3. The calvarium of the skull reveals no fracture.
--- NOTE | 2021-04-04 11:18 | XRAY ---
Exam: Two-view chest from 04/04/2021. Comparison: AP portable chest film from 02/14/2021. Indication: 80-year-old female fell this morning, syncope. Findings: AP and lateral upright chest films on the stretcher were obtained. The heart size is within normal limits with mild left ventricular prominence. Calcified, mildly tortuous descending thoracic aorta is seen. A prominent subcarinal lymph node calcification is again seen. The left lung reveals mild chronic pleural thickening/scarring or minimal effusion at the left lung base. The remainder of the lung boyd appears clear. No vascular congestion, and pneumothorax, or right-sided pleural effusion is seen. The bones are demineralized. Multiple old left-sided rib fractures are again seen, as well as some orthopedic hardware bridging the left seventh, eighth, and ninth left left rib fracture deformities. There is evidence of chronic rotator cuff disease within the right shoulder as well as mild degenerative changes. Impression: 1. Chronic mild pleural thickening/scarring or minimal effusion at the left lung base representing no change from 02/14/2021. 2. No other acute cardiopulmonary disease is seen. 3. Other incidental findings, as discussed above.
[2021-04-04 11:33] LABS: Appearance SLIGHTLY CLOUDY (CLEAR); Bacteria RARE /HPF (NEGATIVE); Bilirubin NEGATIVE (NEGATIVE); Blood NEGATIVE Ery/ul (0-5); Glucose NEGATIVE (NEGATIVE); Hyaline Casts >50 /LPF (0-2); Ketones NEGATIVE (NEGATIVE); Leukocyte Esterase NEGATIVE (NEGATIVE); Mucus MANY /HPF (NEGATIVE); Nitrite NEGATIVE (NEGATIVE); Protein,Urine Dip 30 (Negative); RBC 0-2 /HPF (0-2); Urobilinogen 2 mg/dL (0-1)
[2021-04-04 12:11] LABS: Slide Review 1 YES
[2021-04-04] MEDS ORDERED: MAALOX ES 30 ML UNIT DOSE PO PRN (12:41)
[2021-04-04] MEDS ORDERED: TYLENOL 325 MG PO PRN (12:41)
[2021-04-04] MEDS ORDERED: Senokot-S Tablet PO PRN (12:41)
[2021-04-04] MEDS ORDERED: Zofran 4 MG/2 ML VIAL IV PRN (12:41)
[2021-04-04] MEDS ORDERED: MILK OF MAGNESIA 30 ML PO PRN (12:41)
[2021-04-04] MEDS ORDERED: BENADRYL 25 MG CAPSULE PO PRN (17:37)
[2021-04-04] MEDS ORDERED: solu-MEDROL 125 MG, Sterile H2O 10 ml 2 ML IV ONE ×2 (18:53)
[2021-04-04] MEDS ORDERED: solu-MEDROL ONE (18:56)
[2021-04-04] MEDS ORDERED: Sterile H2O 10 ml IJ ONE (18:57)
[2021-04-04] MEDS ORDERED: Aricept 10 MG PO SCH (22:00)
[2021-04-04] MEDS ORDERED: Toprol-Xl 25MG Tablets PO SCH (22:00)
[2021-04-05] MEDS ORDERED: MEDROL 4 MG PO SCH ×4 (07:30→22:00)
[2021-04-05] MEDS ORDERED: WARFARIN SODIUM 2 MG PO SCH (08:15)
[2021-04-05] MEDS: Medrol Dosepack PO ONE ×2 (08:24→08:27)
[2021-04-05 11:30] VITALS: BP 126/58; PULSE 69; O2SAT 98
[2021-04-05] MEDS ORDERED: Coumadin 3 MG PO SCH (18:00)
[2021-04-05] MEDS ORDERED: Coumadin 3 MG PO ONE (18:22)
[2021-04-05] MEDS ORDERED: Coumadin 5 MG PO ONE (18:22)
[2021-04-06] MEDS ORDERED: MEDROL 4 MG PO SCH (07:30)
[2021-04-06] MEDS ORDERED: Coumadin 5 MG PO SCH (18:00)
[2021-04-06] MEDS ORDERED: Coumadin 3 MG PO SCH (18:00)
[2021-04-07] MEDS ORDERED: MEDROL 4 MG PO SCH (22:00)
--- NOTE | 2021-04-13 09:26 | PCM.SSS ---
History of Present Illness - Chief Complaint Chief Complaint: Syncope and Collapse, Allergic reaction Date: 04/04/21 History of Present Illness: is a 80 year old female. Pt. had syncopial episode after taking a known medication she is allergic to in preparation for a dental procedure. Pt. awoke behind the couch and does not recall what happened, pt. had similar episode when taking cleocin and an ARB, pt. was found to be allergic to both, cardiac evaluation did not find etiology, only test pt. has not had we are capable of doing is a holter moniter. - Review of Systems Constitutional: Other (syncope) Skin: Rash Neurological: Other (Pt. is becoming more forgetful as she notes and recently started on aricept) Medications & Allergies Home Medications: Home Medication List Donepezil HCl 10 mg [Aricept 10 MG] 10 mg PO HS 04/04/21 [History Confirmed 04/04/21] Hydroxyzine HCl 25 mg [Atarax 25 mg] 25 mg PO QID PRN 04/04/21 [History Confirmed 04/04/21] Metoprolol Succinate 25 mg Xl* [Toprol-Xl 25MG Tablets] 25 mg PO HS 04/04/21 [History Confirmed 04/04/21] Warfarin Sodium 2 mg PO UD 04/04/21 [History Confirmed 04/04/21] Methylprednisolone Packet [Medrol Dosepack] 4 mg PO UD #30 packet 04/05/21 [Rx] Allergies/Adverse Reactions: Allergies Allergy/AdvReac Type Severity Reaction Status Date / Time losartan Allergy Severe syncope Verified 04/04/21 10:01 clindamycin Allergy Intermediate Rash Verified 04/04/21 17:18 Penicillins Allergy Intermediate Verified 04/04/21 10:01 Sulfa (Sulfonamide Allergy Intermediate Verified 04/04/21 10:01 Antibiotics) [Sulfa(Sulfonamide Antibiotics)] - Past Medical History Past Medical History: Yes Neurological History: Dementia ENT History: Cataracts Cardiac History: Other CARDIAC HISTORY: Arrhythmia Respiratory History: Other Endocrine Medical History: No Pertinent History Musculoskelatal History: Osteoarthritis GI Medical History: Colorectal Cancer History: No Pertinent History Pyscho-Social History: No Pertinent History Reproductive Disorders: No Pertinent History Comment: states she has been short of breath since they have been treating her heart. Pt notes she has some problems with her heart, but can't remember what they are. - Female History Are you now?: No - Past Surgical History Past Surgical History: Yes Neuro Surgical History: No Pertinent History Cardiac History: No Pertinent History Respiratory Surgery: No Pertinent History GI Surgical History: Colon Resection Genitourinary Surgical Hx: No Pertinent History Musculskeletal Surgical Hx: No Pertinent History Female Surgical History: Hysterectomy Other Surgical History: colostomy - Social History Smoking Status: Never smoker Exposure to second hand smoke: No Alcohol: None Drug Use: none - Physical Exam General Appearance: no apparent distress, alert Neurologic Exam: alert, oriented x 3, cooperative, normal mood/affect, nml cerebellar function, nml station & gait, sensation nml, No motor deficits Eye Exam: PERRL/EOMI, eyes nml inspection Ears, Nose, Throat Exam: normal ENT inspection, pharynx normal, moist mucous membranes Neck Exam: normal inspection, non-tender, supple, full range of motion Respiratory Exam: normal breath sounds, lungs clear, No respiratory distress Cardiovascular Exam: regular rate/rhythm, normal heart sounds, normal peripheral pulses Gastrointestinal/Abdomen Exam: soft, normal bowel sounds, No tenderness, No mass Back Exam: normal inspection, normal range of motion, No CVA tenderness, No vertebral tenderness Extremity Exam: normal inspection, normal range of motion, pelvis stable Skin Exam: normal color, warm, dry, No rash Lymphatic Exam: No adenopathy Results - Labs Lab/Micro Results: Microbiology 04/04/21 10:00 Urine Culture - Final Catherized NO GROWTH Assessment/Plan (1) Allergic reaction Status: Acute Code(s): T78.40XA - ALLERGY, UNSPECIFIED, INITIAL ENCOUNTER (2) Hx of fall Status: Acute Code(s): Z91.81 - HISTORY OF FALLING (3) Syncope and collapse Status: Acute Code(s): R55 - SYNCOPE AND COLLAPSE Hospital Summary - Hospital Course Hospital Course: Pt. feeling normal and work-up negative, pt. is ready or discharge, will stop the cleocin and start on po steroids for allergic reaction and order op holter moniter for further evaluation, possibly related to hypotension from the allergic reaction, pt. is comfortable going home. - Vitals & Intake/Output Vital Signs: Vital Signs Temperature 97.8 F 04/05/21 11:29 Pulse Rate 69 04/05/21 11:29 Respiratory Rate 18 04/05/21 11:29 Blood Pressure 126/58 04/05/21 11:29 O2 Sat by Pulse Oximetry 98 04/05/21 12:00 - Lab Result Diagrams: 04/04/21 10:00 04/04/21 10:00 Micro Results-Entire Visit: Microbiology 04/04/21 10:00 Urine Culture - Final Catherized NO GROWTH - Procedures and Test Procedures and Tests throughout Hospitalization: Therapy Orders & Screens 04/04/21 12:41 EKG DAILY Comment: 04/04/21 14:06 OT Screen per Nursing Assess ONCE Comment: Protocol Order Physician Instructions: Greater than 3 points order OT Admission Screening Reason For Exam: Triggered on Admission Diagnosis: Syncope and Collapse Open Wound/Cellutlitis/Pressure Ulcers: No Acute Fx/ORIF/Change in wt bearing status: No Severe MUSCULOSKELETAL pain: No ADL Dysfunction: Yes Acute CVA w/Hemiparesis/Hemiplegia: No Decreased Functional Mobility/Strength: Yes Sprain/Strain: No Acute Post-op Mobility Dysfunction: No Total Points: 4 PT Screen per Nursing Assess ONCE Comment: Protocol Order Physician Instructions: Greater than 3 points order PT Admission Screenin Reason For Exam: Triggered on Admission Diagnosis: Syncope and Collapse Open Wound/Cellutlitis/Pressure Ulcers: No Acute Fx/ORIF/Change in wt bearing status: No Severe MUSCULOSKELETAL pain: No ADL Dysfunction: Yes Acute CVA w/Hemiparesis/Hemiplegia: No Decreased Functional Mobility/Strength: Yes Sprain/Strain: No Acute Post-op Mobility Dysfunction: No Total Points: 4 04/05/21 05:00 EKG ONCE Comment: Diagnosis: Syncope and Collapse 04/05/21 10:10 PT Eval & Treat (MD Order) ONCE Reason for Eval:: fall at home Diagnosis: Syncope and Collapse 04/05/21 12:40 Holter Monitor ONCE Comment: Reason For Exam: Diagnosis: Syncope and Collapse 04/06/21 05:00 EKG ONCE Comment: Diagnosis: Syncope and Collapse 04/07/21 05:00 EKG ONCE Comment: Diagnosis: Syncope and Collapse 04/08/21 05:00 EKG ONCE Comment: Diagnosis: Syncope and Collapse 04/09/21 05:00 EKG ONCE Comment: Diagnosis: Syncope and Collapse 04/10/21 05:00 EKG ONCE Comment: Diagnosis: Syncope and Collapse - Discharge Discharge Date: 04/05/21 Disposition: Home, Self-Care Condition: Stable Prescriptions: New Methylprednisolone Packet [Medrol Dosepack] 4 mg PO UD #30 packet Continue Donepezil HCl 10 mg [Aricept 10 MG] 10 mg PO HS Metoprolol Succinate 25 mg Xl* [Toprol-Xl 25MG Tablets] 25 mg PO HS Warfarin Sodium 2 mg PO UD Hydroxyzine HCl 25 mg [Atarax 25 mg] 25 mg PO QID PRN Discontinued Losartan/Hydrochlorothiazide [Losartan-Hctz 50-12.5 mg Tab] 1 tab PO DAILY Instructions: Syncope (Fainting) (DC) Additional Instructions: WALKER ORDER SENT TO [facility]. THEY WILL DELIVER THE WALKER TO YOUR HOME. THEIR PHONE NUMBER IS [phone] Follow up with: ANTHONY SANTOS [Primary Care Provider] - 04/14/21 10:15 am Forms: Discharge Instructions
== END 2021-04-05 15:08 | disposition home or self-care (01) ==
LOC: ED 09:34 → MED SURG 12:30
PROVIDERS: ADMIT Family Medicine; ATTEND Family Medicine
DX: R55 Syncope and collapse (principal); T50.905A Adverse effect of unspecified drugs, medicaments and biological substances, initial encounter; I10 Essential (primary) hypertension; I48.91 Unspecified atrial fibrillation; Z79.899 Other long term (current) drug therapy; Z79.01 Long term (current) use of anticoagulants; Z85.038 Personal history of other malignant neoplasm of large intestine; Z20.828 Contact with and (suspected) exposure to other viral communicable diseases; Z91.81 History of falling
CPT/HCPCS: 36000; 36415; 70450; 71046; 80048; 81001; 82550; 83735; 83880; 84484; 85025; 85610; 87086; 93005; 93041; 93225; 93268; 96360; 97161; 99285; G0328; G0378; P9612; U0003; 82274; J2930; A9270-GY

== ENCOUNTER 2022-01-11 10:09 | Observation (INO) | payer MEDICARE ==
[2022-01-11 10:51] LABS: Absolute Neutrophil Ct (ANC) 1.38 (1.4-6.9); Basophil (Absolute #) 0.04 (0-0.4); Eosinophil % 6.7 % (0.00-5.0); Eosinophil (Absolute #) 0.19 (0-0.5); Hematocrit 35.6 % (35-47); Hemoglobin 11.5 gm/dl (12.0-16.0); Lymphocyte (Absolute #) 0.96 (1.0-4.6); Lymphocytes % 33.8 % (24.0-44.0); Mean Cell Volume 88.1 fl (78-100); Mean Corpuscular Hemoglobin 28.5 pg (26-32); Mean Corpuscular Hgb Concent. 32.3 g/dl (32-36); Mean Platelet Volume 9.6 fl (7.5-11.0); Monocyte (Absolute #) 0.27 (0.0-1.3); Monocytes % 9.5 % (0.0-12.0); Neutrophil % 48.6 % (36.0-66.0); Platelet Count 297 K/mm3 (150-450); Red Blood Count 4.04 M/mm3 (4.1-5.4); Red Cell Distribution Width 14.5 % (11.5-14.0); White Blood Count 2.8 K/mm3 (4.0-10.5)
--- NOTE | 2022-01-11 10:57 | XRAY ---
Indication: Palpitations. Comparison: April 04, 2021. Portable chest unchanged again demonstrating chronic left lung base pleural effusion/thickening. Remaining lungs clear. Heart not enlarged again with chunky subcarinal calcified node. Bony thorax intact again with osteopenia, degenerative changes, and old left rib fractures with intact hardware. Impression: Continued nonacute chest with chronic features.
[2022-01-11 11:14] LABS: ALBUMIN 3.8 g/dL (3.5-5.0); ALKALINE PHOSPHATASE 125 U/L (38-126); ANION GAP 12.3 MEQ/L (5-15); BLOOD UREA NITROGEN 12 mg/dL (7-17); CHLORIDE 102 mmol/L (98-107); Carbon Dioxide 24 mmol/L (22-30); Creatinine 1 0.94 mg/dL (0.52-1.04); EST GLOMERULAR FILTRATION RATE > 60.0 ML/MIN; Glucose 93 mg/dL (74-106); NT PRO BNP 231 pg/mL (0-1800); Potassium 3.9 mmol/L (3.5-5.1); SGOT/AST 19 U/L (14-36); SGPT/ALT 11 U/L (0-35); SODIUM 135 mmol/L (137-145); Total Protein 6.3 g/dL (6.3-8.2)
--- NOTE | 2022-01-11 14:09 | ERPHSYRPT ---
- History of Present Illness Time Seen by Provider: 01/11/22 10:32 Historian: patient, family Exam Limitations: no limitations Patient Subjective Stated Complaint: PT states "I am shakey, I have been having palpitations. I am supposed to have a pacemaker put in tomorrow but Dr. Melvin moved it back two weeks. I am supposed to have a hernia surgery and colostomy moved in a couple of weeks as well" Triage Nursing Assessment: PTpresented alert and oriented X 3, skin pwd. Pt ambulates with a slow shaking gait, able to speak in clear full sentences pt in no apparent respiratory distress. Physician History: 81 yo with Afib on NOAC scheduled for pacemaker palacement presented with sudden onset palpitations started earlier today. Also having some retrosternal discomfort. No associated shortness of breath fever or chills reported. Timing/Duration: today, intermittent, improved Activities at Onset: rest Quality: aching Location: substernal Chest Pain Radiation: no radiation Severity of Pain-Max: mild Severity of Pain-Current: none Modifying Factors: Improves With: nothing Associated Symptoms: palpitations, dizziness, No shortness of breath Nitro Today/Relief: no nitro taken today Aspirin Treatment Today: no aspirin today Allergies/Adverse Reactions: losartan Allergy (Severe, Verified 04/04/21 10:01) syncope listed in dr carrillo discharge notes clindamycin Allergy (Intermediate, Verified 04/04/21 17:18) Rash Penicillins Allergy (Intermediate, Verified 04/04/21 10:01) pt cant rememer reaction. Sulfa (Sulfonamide Antibiotics) [Sulfa(Sulfonamide Antibiotics)] Allergy (Intermediate, Verified 04/04/21 10:01) pt cant remember reaction Home Medications: Amiodarone HCl [Pacerone] 200 mg PO DAILY 01/11/22 [History] Apixaban [Eliquis 5 mg Tablet] 5 mg PO BID 01/11/22 [History] Diltiazem HCl [Diltiazem ER] 120 mg PO DAILY 01/11/22 [History] Donepezil HCl 10 mg [Aricept 10 MG] 10 mg PO QHS 01/11/22 [History] Omeprazole 40 mg PO DAILY 01/11/22 [History] Oxybutynin Chloride [Oxybutynin Chloride ER] 5 mg PO DAILY 01/11/22 [History] Hx Tetanus, Diphtheria Vaccination/Date Given: (UNSURE) Hx Influenza Vaccination/Date Given: Yes Hx Pneumococcal Vaccination/Date Given: No Immunizations Up to Date: Yes Travel Risk - International Travel Have you traveled outside of the country in past 3 weeks: No - Coronavirus Screening Are you exhibiting any of the following symptoms?: No Close contact with a COVID-19 positive Pt in past 14-21 Days: No - Vaccine Status Have you recieved a Covid-19 vaccination: Yes Track Leader: Unknown - Vaccination Dates Dates if Unknown: unknown Comment: Patient states she had her vaccine but granddaughter here and states that patient has not had Covid vaccine at this time. - Review of Systems Constitutional: No Symptoms Eyes: No Symptoms Ears, Nose, & Throat: No Symptoms Respiratory: No Symptoms Cardiac: Chest Pain, Palpitations Abdominal/Gastrointestinal: No Symptoms Genitourinary Symptoms: No Symptoms Musculoskeletal: No Symptoms Skin: No Symptoms Neurological: Dizziness Psychological: Anxiety Endocrine: No Symptoms Hematologic/Lymphatic: No Symptoms Immunological/Allergic: No Symptoms - Past Medical History Pertinent Past Medical History: Yes Neurological History: Dementia ENT History: Cataracts Cardiac History: Other Respiratory History: Other Endocrine Medical History: No Pertinent History Musculoskeletal History: Osteoarthritis GI Medical History: Colorectal Cancer History: No Pertinent History Psycho-Social History: No Pertinent History Female Reproductive Disorders: No Pertinent History Other Medical History: states she has been short of breath since they have been treating her heart. Pt notes she has some problems with her heart, but can't remember what they are. - Past Surgical History Past Surgical History: Yes Neuro Surgical History: No Pertinent History Cardiac: No Pertinent History Respiratory: No Pertinent History Gastrointestinal: Colon Resection Genitourinary: No Pertinent History Musculoskeletal: No Pertinent History Female Surgical History: Hysterectomy Other Surgical History: colostomy - Social History Smoking Status: Never smoker Exposure to second hand smoke: No Drug Use: none Patient Lives Alone: Yes - Nursing Vital Signs Nursing Vital Signs: Initial Vital Signs Temperature 98.1 F 01/11/22 10:11 Pulse Rate 62 01/11/22 10:11 Respiratory Rate 20 01/11/22 10:11 Blood Pressure 173/86 01/11/22 10:11 O2 Sat by Pulse Oximetry 100 01/11/22 10:11 Pain Scale Pain Intensity 0 - Physical Exam General Appearance: no apparent distress, alert, anxiety Eye Exam: PERRL/EOMI, eyes nml inspection Ears, Nose, Throat Exam: normal ENT inspection, TMs normal, pharynx normal, moist mucous membranes Neck Exam: normal inspection, non-tender, supple, full range of motion Respiratory Exam: normal breath sounds, lungs clear Cardiovascular Exam: regular rate/rhythm, normal heart sounds Gastrointestinal/Abdomen Exam: soft, normal bowel sounds, No tenderness Back Exam: normal inspection, normal range of motion Extremity Exam: normal inspection Neurologic Exam: alert, oriented x 3, cooperative, sound effects manager II-XII nml as tested, nml cerebellar function, nml station & gait, sensation nml, motor deficits, No normal mood/affect Skin Exam: normal color SpO2 Interpretation: normal SpO2: 98 O2 Delivery: Room Air - Course EKG Interpreted by Me: RATE (62), Sinus Rhythm, NORMAL AXIS, Q-wave, Non- specific ST Changes Ordered Tests: Medication Summary Discontinued Medications Generic Name Dose Route Start Last Admin Trade Name Freq PRN Reason Stop Dose Admin Acetaminophen 650 mg 01/11/22 15:39 Acetaminophen 325 Mg Tablet PO 02/10/22 15:38 Q4H PRN PRN PAIN AND/OR FEVER Albuterol Sulfate 2 puff 01/12/22 10:00 01/12/22 07:30 Albuterol Common Canister Inhaler IH 02/11/22 09:59 2 puff DAILY WILLIAM Administration Albuterol/Ipratropium 3 ml 01/11/22 15:39 Ipratropium/Albuterol Sulfate 3 Ml Ampul.Neb 02/10/22 15:38 Q4HPRN PRN SHORTNESS OF BREATH/WHEEZING Amiodarone HCl 200 mg 01/12/22 10:00 Amiodarone Hcl 200 Mg Tab PO 02/11/22 09:59 DAILY WILLIAM Apixaban 5 mg 01/11/22 22:00 01/12/22 08:39 Apixaban 2.5 Mg Tablet PO 02/10/22 21:59 5 mg BID WILLIAM Administration Diltiazem HCl 120 mg 01/12/22 10:00 Diltiazem Hcl 120 Mg Cap.Sr.24h PO 02/11/22 09:59 DAILY WILLIAM Donepezil HCl 10 mg 01/11/22 22:00 01/11/22 22:52 Donepezil Hcl 10 Mg Tablet PO 02/10/22 21:59 10 mg HS WILLIAM Administration Ondansetron HCl 4 mg 01/11/22 15:39 Ondansetron Hcl 4 Mg/2 Ml Vial IV 02/10/22 15:38 Q6H PRN PRN NAUSEA/VOMITING Oxybutynin Chloride 5 mg 01/12/22 10:00 Oxybutynin Chloride Xl 5 Mg Tab PO 02/11/22 09:59 DAILY WILLIAM Pantoprazole Sodium 40 mg 01/11/22 16:00 01/12/22 08:39 Pantoprazole 40 Mg Vial IV 02/10/22 15:59 40 mg Q24H10 WILLIAM Administration Pantoprazole Sodium 40 mg 01/13/22 10:00 Protonix (Pantoprazole) 40 Mg Tablet PO 02/12/22 09:59 DAILY WILLIAM Lab/Rad Data: Laboratory Result Diagrams 01/11/22 10:42 01/11/22 10:42 Laboratory Results 01/11/22 01/11/22 01/11/22 Range/Units 14:20 13:40 10:42 WBC (4.0-10.5) K/mm3 RBC (4.1-5.4) M/mm3 Hgb (12.0-16.0) gm/dl Hct (35-47) % MCV (78-100) fl MCH (26-32) pg MCHC (32-36) g/dl RDW (11.5-14.0) % Plt Count (150-450) K/mm3 MPV (7.5-11.0) fl Gran % (36.0-66.0) % Eos # (Auto) (0-0.5) Absolute Lymphs (auto) (1.0-4.6) Absolute Monos (auto) (0.0-1.3) Lymphocytes % (24.0-44.0) % Monocytes % (0.0-12.0) % Eosinophils % (0.00-5.0) % Basophils % (0.0-0.4) % Absolute Granulocytes (1.4-6.9) Basophils # (0-0.4) Sodium (137-145) mmol/L Potassium (3.5-5.1) mmol/L Chloride (98-107) mmol/L Carbon Dioxide (22-30) mmol/L Anion Gap (5-15) MEQ/L BUN (7-17) mg/dL Creatinine (0.52-1.04) mg/dL Estimated GFR ML/MIN Glucose (74-106) mg/dL Calcium (8.4-10.2) mg/dL Magnesium 2.0 (1.6-2.3) mg/dL Total Bilirubin (0.2-1.3) mg/dL AST (14-36) U/L ALT (0-35) U/L Alkaline Phosphatase (38-126) U/L Troponin I < 0.012 (0.000-0.034) ng/mL NT-Pro-B Natriuret Pep (0-1800) pg/mL Serum Total Protein (6.3-8.2) g/dL Albumin (3.5-5.0) g/dL TSH 3rd Generation (0.47-4.68) mIU/L Influenza Type A Ag NEGATIVE (NEGATIVE) Influenza Type B Ag NEGATIVE (NEGATIVE) RSV (PCR) NEGATIVE (Negative) SARS-CoV-2 (PCR) NEGATIVE (NEGATIVE) 01/11/22 01/11/22 01/11/22 Range/Units 10:42 10:42 10:42 WBC (4.0-10.5) K/mm3 RBC (4.1-5.4) M/mm3 Hgb (12.0-16.0) gm/dl Hct (35-47) % MCV (78-100) fl MCH (26-32) pg MCHC (32-36) g/dl RDW (11.5-14.0) % Plt Count (150-450) K/mm3 MPV (7.5-11.0) fl Gran % (36.0-66.0) % Eos # (Auto) (0-0.5) Absolute Lymphs (auto) (1.0-4.6) Absolute Monos (auto) (0.0-1.3) Lymphocytes % (24.0-44.0) % Monocytes % (0.0-12.0) % Eosinophils % (0.00-5.0) % Basophils % (0.0-0.4) % Absolute Granulocytes (1.4-6.9) Basophils # (0-0.4) Sodium 135 L (137-145) mmol/L Potassium 3.9 (3.5-5.1) mmol/L Chloride 102 (98-107) mmol/L Carbon Dioxide 24 (22-30) mmol/L Anion Gap 12.3 (5-15) MEQ/L BUN 12 (7-17) mg/dL Creatinine 0.94 (0.52-1.04) mg/dL Estimated GFR > 60.0 ML/MIN Glucose 93 (74-106) mg/dL Calcium 9.0 (8.4-10.2) mg/dL Magnesium (1.6-2.3) mg/dL Total Bilirubin 0.90 (0.2-1.3) mg/dL AST 19 (14-36) U/L ALT 11 (0-35) U/L Alkaline Phosphatase 125 (38-126) U/L Troponin I < 0.012 (0.000-0.034) ng/mL NT-Pro-B Natriuret Pep 231 (0-1800) pg/mL Serum Total Protein 6.3 (6.3-8.2) g/dL Albumin 3.8 (3.5-5.0) g/dL TSH 3rd Generation 6.920 H (0.47-4.68) mIU/L Influenza Type A Ag (NEGATIVE) Influenza Type B Ag (NEGATIVE) RSV (PCR) (Negative) SARS-CoV-2 (PCR) (NEGATIVE) 01/11/22 Range/Units 10:42 WBC 2.8 L (4.0-10.5) K/mm3 RBC 4.04 L (4.1-5.4) M/mm3 Hgb 11.5 L (12.0-16.0) gm/dl Hct 35.6 (35-47) % MCV 88.1 (78-100) fl MCH 28.5 (26-32) pg MCHC 32.3 (32-36) g/dl RDW 14.5 H (11.5-14.0) % Plt Count 297 (150-450) K/mm3 MPV 9.6 (7.5-11.0) fl Gran % 48.6 (36.0-66.0) % Eos # (Auto) 0.19 (0-0.5) Absolute Lymphs (auto) 0.96 L (1.0-4.6) Absolute Monos (auto) 0.27 (0.0-1.3) Lymphocytes % 33.8 (24.0-44.0) % Monocytes % 9.5 (0.0-12.0) % Eosinophils % 6.7 H (0.00-5.0) % Basophils % 1.4 (0.0-0.4) % Absolute Granulocytes 1.38 L (1.4-6.9) Basophils # 0.04 (0-0.4) Sodium (137-145) mmol/L Potassium (3.5-5.1) mmol/L Chloride (98-107) mmol/L Carbon Dioxide (22-30) mmol/L Anion Gap (5-15) MEQ/L BUN (7-17) mg/dL Creatinine (0.52-1.04) mg/dL Estimated GFR ML/MIN Glucose (74-106) mg/dL Calcium (8.4-10.2) mg/dL Magnesium (1.6-2.3) mg/dL Total Bilirubin (0.2-1.3) mg/dL AST (14-36) U/L ALT (0-35) U/L Alkaline Phosphatase (38-126) U/L Troponin I (0.000-0.034) ng/mL NT-Pro-B Natriuret Pep (0-1800) pg/mL Serum Total Protein (6.3-8.2) g/dL Albumin (3.5-5.0) g/dL TSH 3rd Generation (0.47-4.68) mIU/L Influenza Type A Ag (NEGATIVE) Influenza Type B Ag (NEGATIVE) RSV (PCR) (Negative) SARS-CoV-2 (PCR) (NEGATIVE) - Progress Progress: improved Air Movement: fair Progress Note: 01/11/22 14:07 Patient is not in A. fib with RVR. Negative initial chest pain work-up. Discussed with Dr. Temple who recommended observation admission here and have her follow-up outpatient with primary cardiology in 2 weeks. I have D/w , reviewed history, work-up and patient is excepted for admission. Blood Culture(s) Obtained: No Antibiotics given: No Discussed with : Loki Counseled pt/family regarding: lab results, diagnosis, need for follow-up, rad results - Departure Departure Disposition: Observation Clinical Impression: Palpitations Chest pain Qualifiers: Chest pain type: precordial pain Qualified Code(s): R07.2 - Precordial pain Condition: Stable Critical Care Time: No
[2022-01-11 15:11] LABS: INFLUENZA A NEGATIVE (NEGATIVE); INFLUENZA B NEGATIVE (NEGATIVE); RESPIRATORY SYNCTIAL VIRUS NEGATIVE (Negative); SARS-CoV-2 Xpert Express NEGATIVE (NEGATIVE)
[2022-01-11] MEDS ORDERED: TYLENOL 325 MG PO PRN (15:39)
[2022-01-11] MEDS ORDERED: Zofran 4 MG/2 ML VIAL IV PRN (15:39)
[2022-01-11] MEDS ORDERED: DUONEB 0.5-3 MG/3 ml Neb IH PRN (15:39)
[2022-01-11] MEDS: PROTONIX 40 MG IV IV SCH (18:13)
[2022-01-11] MEDS ORDERED: Aricept 10 MG PO SCH (22:00)
[2022-01-11] MEDS: ELIQUIS 2.5 MG TABLET PO SCH (22:52)
[2022-01-12 05:14] LABS: Absolute Neutrophil Ct (ANC) 1.64 (1.4-6.9); Basophil (Absolute #) 0.03 (0-0.4); Eosinophil % 7.4 % (0.00-5.0); Eosinophil (Absolute #) 0.27 (0-0.5); Hematocrit 32.4 % (35-47); Hemoglobin 10.4 gm/dl (12.0-16.0); Lymphocyte (Absolute #) 1.31 (1.0-4.6); Mean Cell Volume 89.3 fl (78-100); Mean Corpuscular Hemoglobin 28.7 pg (26-32); Mean Corpuscular Hgb Concent. 32.1 g/dl (32-36); Mean Platelet Volume 9.9 fl (7.5-11.0); Monocyte (Absolute #) 0.39 (0.0-1.3); Monocytes % 10.7 % (0.0-12.0); Neutrophil % 45.1 % (36.0-66.0); Platelet Count 271 K/mm3 (150-450); Red Blood Count 3.63 M/mm3 (4.1-5.4); Red Cell Distribution Width 14.6 % (11.5-14.0); White Blood Count 3.6 K/mm3 (4.0-10.5)
[2022-01-12 05:47] LABS: ALBUMIN 3.2 g/dL (3.5-5.0); ALKALINE PHOSPHATASE 105 U/L (38-126); ANION GAP 10.2 MEQ/L (5-15); BLOOD UREA NITROGEN 13 mg/dL (7-17); CHLORIDE 103 mmol/L (98-107); Calcium 8.3 mg/dL (8.4-10.2); Carbon Dioxide 24 mmol/L (22-30); Creatinine 1 0.87 mg/dL (0.52-1.04); EST GLOMERULAR FILTRATION RATE > 60.0 ML/MIN; Glucose 91 mg/dL (74-106); Potassium 3.4 mmol/L (3.5-5.1); SGOT/AST 20 U/L (14-36); SGPT/ALT 9 U/L (0-35); SODIUM 134 mmol/L (137-145); Total Protein 5.6 g/dL (6.3-8.2)
[2022-01-12 08:05] VITALS: BP 173/81
[2022-01-12] MEDS: PROTONIX 40 MG IV IV SCH (08:39)
[2022-01-12] MEDS: ELIQUIS 2.5 MG TABLET PO SCH (08:39)
[2022-01-12] MEDS ORDERED: Ditropan XL 5 MG PO SCH (10:00)
[2022-01-12] MEDS ORDERED: NON-FORMULARY ITEM (Diltiazem Hcl [Diltiazem 24hr Er] 120 MG Cap.Sa.24h) PO SCH (10:00)
[2022-01-12] MEDS ORDERED: VENTOLIN COMMON CANISTER IH SCH (10:00)
[2022-01-12] MEDS ORDERED: Cordarone 200 MG PO SCH (10:00)
[2022-01-12] MEDS ORDERED: Cardizem CD 120 MG PO SCH (10:00)
[2022-01-12] MEDS ORDERED: NON-FORMULARY ITEM (Omeprazole [Omeprazole] 40 MG Capsule.Dr) PO SCH (10:00)
[2022-01-12 10:01] VITALS: PULSE 58
[2022-01-13] MEDS ORDERED: Protonix 40MG Tablet PO SCH (10:00)
[2022-01-17 14:52] VITALS: O2SAT 98
--- NOTE | 2022-01-26 20:51 | PCM.SSS ---
History of Present Illness - Chief Complaint Chief Complaint: chest pain , palpitations Date: 01/12/22 History of Present Illness: is a 81 year old female. Pt. presented to ER with palpitations and check pain, initial work-up was negative, pt is scheduled for pacemaker and after discussion with cardiology it was felt the patient would benefit from an observation at [facility] for further cardiac marker evaluation. - Review of Systems Constitutional: No Fever, No Chills Eyes: No Symptoms Ears, Nose, & Throat: No Symptoms Respiratory: No Cough, No Short Of Breath Cardiac: Chest Pain, Palpitations, No Edema, No Syncope Abdominal/Gastrointestinal: No Abdominal Pain, No Nausea, No Vomiting, No Taniya rrhea Genitourinary Symptoms: No Dysuria Musculoskeletal: No Back Pain, No Neck Pain Skin: No Rash Neurological: No Dizziness, No Focal Weakness, No Sensory Changes Psychological: No Symptoms Endocrine: No Symptoms Hematologic/Lymphatic: No Symptoms Immunological/Allergic: No Symptoms Medications & Allergies Home Medications: Home Medication List Amiodarone HCl [Pacerone] 200 mg PO DAILY 01/11/22 [History Confirmed 01/11/22] Apixaban [Eliquis 5 mg Tablet] 5 mg PO BID 01/11/22 [History Confirmed 01/11/22] Diltiazem HCl [Diltiazem ER] 120 mg PO DAILY 01/11/22 [History Confirmed 01/11/22] Donepezil HCl 10 mg [Aricept 10 MG] 10 mg PO QHS 01/11/22 [History Confirmed 01/11/22] Omeprazole 40 mg PO DAILY 01/11/22 [History Confirmed 01/11/22] Oxybutynin Chloride [Oxybutynin Chloride ER] 5 mg PO DAILY 01/11/22 [History Confirmed 01/11/22] Allergies/Adverse Reactions: Allergies Allergy/AdvReac Type Severity Reaction Status Date / Time losartan Allergy Severe syncope Verified 04/04/21 10:01 clindamycin Allergy Intermediate Rash Verified 04/04/21 17:18 Penicillins Allergy Intermediate Verified 04/04/21 10:01 Sulfa (Sulfonamide Allergy Intermediate Verified 04/04/21 10:01 Antibiotics) [Sulfa(Sulfonamide Antibiotics)] - Past Medical History Past Medical History: Yes Neurological History: Dementia ENT History: Cataracts Cardiac History: Other CARDIAC HISTORY: Arrhythmia Respiratory History: Other Endocrine Medical History: No Pertinent History Musculoskelatal History: Osteoarthritis GI Medical History: Colorectal Cancer History: No Pertinent History Pyscho-Social History: No Pertinent History Reproductive Disorders: No Pertinent History Comment: states she has been short of breath since they have been treating her heart. Pt notes she has some problems with her heart, but can't remember what they are. - Past Surgical History Past Surgical History: Yes Neuro Surgical History: No Pertinent History Cardiac History: No Pertinent History Respiratory Surgery: No Pertinent History GI Surgical History: Colon Resection Genitourinary Surgical Hx: No Pertinent History Musculskeletal Surgical Hx: No Pertinent History Female Surgical History: Hysterectomy Other Surgical History: colostomy - Social History Smoking Status: Never smoker Exposure to second hand smoke: No Alcohol: None Drug Use: none - Physical Exam General Appearance: no apparent distress, alert Neurologic Exam: alert, oriented x 3, cooperative, normal mood/affect, nml cerebellar function, sensation nml, No motor deficits Eye Exam: PERRL/EOMI, eyes nml inspection Ears, Nose, Throat Exam: normal ENT inspection, pharynx normal, moist mucous membranes Neck Exam: normal inspection, non-tender, supple, full range of motion Respiratory Exam: normal breath sounds, lungs clear, No respiratory distress Cardiovascular Exam: regular rate/rhythm, normal heart sounds, normal peripheral pulses Gastrointestinal/Abdomen Exam: soft, normal bowel sounds, No tenderness, No mass Back Exam: normal inspection, normal range of motion, No CVA tenderness, No vertebral tenderness Extremity Exam: normal inspection, normal range of motion, pelvis stable Skin Exam: normal color, warm, dry, No rash Lymphatic Exam: No adenopathy Assessment/Plan (1) Chest pain Status: Acute Qualifiers: Chest pain type: precordial pain Qualified Code(s): R07.2 - Precordial pain Code(s): R07.9 - CHEST PAIN, UNSPECIFIED (2) Palpitations Status: Acute Code(s): R00.2 - PALPITATIONS Hospital Summary - Hospital Course Hospital Course: Pt. admitted and no further palpitations and chest pain, with negative cardiac markers and cardiology follow-up scheduled for Saturday it was felt the patient was stable for discharge to home. - Vitals & Intake/Output Vital Signs: Vital Signs Temperature 98.2 F 01/12/22 08:00 Pulse Rate 58 L 01/12/22 09:54 Respiratory Rate 18 01/12/22 09:54 Blood Pressure 173/81 01/12/22 08:00 O2 Sat by Pulse Oximetry 98 01/17/22 14:52 - Lab Result Diagrams: 01/12/22 04:30 01/12/22 04:30 - Procedures and Test Procedures and Tests throughout Hospitalization: Therapy Orders & Screens 01/11/22 17:11 Respiratory Therapy Assessment DAILY Comment: Diagnosis: chest pain , palpitations - Discharge Discharge Date: 01/12/22 Disposition: Home, Self-Care Condition: Stable Prescriptions: No Action Apixaban [Eliquis 5 mg Tablet] 5 mg PO BID Donepezil HCl 10 mg [Aricept 10 MG] 10 mg PO QHS Amiodarone HCl [Pacerone] 200 mg PO DAILY Oxybutynin Chloride [Oxybutynin Chloride ER] 5 mg PO DAILY Diltiazem HCl [Diltiazem ER] 120 mg PO DAILY Omeprazole 40 mg PO DAILY Instructions: Palpitations Follow up with: ANTHONY SANTOS MD [Primary Care Provider] - 01/19/22 11:00 am Forms: Discharge Instructions
== END 2022-01-12 09:25 | disposition home or self-care (01) ==
LOC: ED 10:09 → MED SURG 15:35
PROVIDERS: ADMIT Family Medicine; ATTEND Family Medicine
DX: R07.9 Chest pain, unspecified (principal); R00.2 Palpitations; F03.90 Unspecified dementia, unspecified severity, without behavioral disturbance, psychotic disturbance, mood disturbance, and anxiety; Z79.899 Other long term (current) drug therapy; Z85.038 Personal history of other malignant neoplasm of large intestine; Z20.828 Contact with and (suspected) exposure to other viral communicable diseases; Z79.01 Long term (current) use of anticoagulants
CPT/HCPCS: 0241U; 36415; 71045; 80053; 83735; 83880; 84443; 84484; 85025; 93268; 94640; 94760; 99285; G0378; A9270-GY

== ENCOUNTER 2022-09-04 12:44 | Observation (INO) | payer MEDICARE ==
--- NOTE | 2022-09-04 12:51 | ERPHSYRPT ---
- History of Present Illness Historian: patient, EMS, old records Exam Limitations: no limitations Timing/Duration: week(s) (1) Quality: aching Abdominal Pain Onset Location: generalized abdomen Pain Radiation: no radiation Severity of Pain-Max: mild Severity of Pain-Current: mild Modifying Factors: Improves With: vomiting Associated Symptoms: nausea, vomiting, weakness, No chest pain, No fever/chills, No shortness of breath Hx Tetanus, Diphtheria Vaccination/Date Given: (UNSURE) Hx Influenza Vaccination/Date Given: Yes Hx Pneumococcal Vaccination/Date Given: No - History of Present Illness Time Seen by Provider: 09/04/22 12:51 Physician History: This is an 82-year-old white female patient of Dr. Reyes who presents via EMS because of vomiting for 1 week. Patient states she is unable to hold any food or fluids down. Patient also has an associated cough headache and body aches. Patient received intravenous Zofran in route to the hospital. Patient has a history of colorectal cancer and has an end colostomy in her left lower quadrant. There is stool in this ostomy bag. Patient has a degree of dementia, hypertension, gastroesophageal reflux disease and hypothyroidism. She denies shortness of breath and she denies chest pain. (HAZEL STRATTON) Allergies/Adverse Reactions: losartan Allergy (Severe, Verified 09/04/22 12:56) syncope listed in dr carrillo discharge notes clindamycin Allergy (Intermediate, Verified 09/04/22 12:56) Rash Penicillins Allergy (Intermediate, Verified 09/04/22 12:56) pt cant rememer reaction. Sulfa (Sulfonamide Antibiotics) [Sulfa(Sulfonamide Antibiotics)] Allergy (Intermediate, Verified 09/04/22 12:56) pt cant remember reaction Home Medications: Amiodarone HCl [Pacerone] 100 mg PO DAILY 01/11/22 [History] Apixaban [Eliquis 5 mg Tablet] 5 mg PO BID 01/11/22 [History] Diltiazem HCl [Diltiazem ER] 120 mg PO DAILY 01/11/22 [History] Omeprazole 40 mg PO DAILY 01/11/22 [History] Oxybutynin Chloride [Oxybutynin Chloride ER] 5 mg PO DAILY 01/11/22 [History] Albuterol Sulfate [Albuterol Sulfate Hfa] 2 puff PO Q4H PRN PRN 09/04/22 [History] Cholecalciferol (Vitamin D3) [Vitamin D] 1 tab PO WEEKLY 09/04/22 [History] Ferrous Sulfate 325 mg PO DAILY 09/04/22 [History] Levothyroxine Sodium 50 mcg PO DAILY 09/04/22 [History] ondansetron HCL [Ondansetron HCl] 1 tab PO TID PRN 09/04/22 [History] Travel Risk - International Travel Have you traveled outside of the country in past 3 weeks: No - Coronavirus Screening Are you exhibiting any of the following symptoms?: Yes Symptoms: Cough: New Onset, Vomiting/Diarrhea, Headaches/Body Aches/Fatigue - Vaccine Status Have you recieved a Covid-19 vaccination: Yes Clinical Support Specialist: Unknown - Vaccination Dates Dates if Unknown: unknown Comment: Patient states she had her vaccine but granddaughter here and states that patient has not had Covid vaccine at this time. - Review of Systems Constitutional: Weakness Eyes: No Symptoms Ears, Nose, & Throat: No Symptoms Respiratory: No Symptoms Cardiac: No Symptoms Abdominal/Gastrointestinal: Abdominal Pain, Nausea (Mild diffuse), Vomiting Genitourinary Symptoms: No Symptoms Musculoskeletal: Arthralgias, Myalgias Skin: No Symptoms Neurological: No Symptoms Psychological: No Symptoms Endocrine: No Symptoms Hematologic/Lymphatic: No Symptoms Immunological/Allergic: No Symptoms All Other Systems: Reviewed and Negative - Past Medical History Pertinent Past Medical History: Yes Neurological History: Dementia ENT History: Cataracts Cardiac History: Other Respiratory History: Other Endocrine Medical History: No Pertinent History Musculoskeletal History: Osteoarthritis GI Medical History: Colorectal Cancer History: No Pertinent History Psycho-Social History: No Pertinent History Female Reproductive Disorders: No Pertinent History Other Medical History: states she has been short of breath since they have been treating her heart. Pt notes she has some problems with her heart, but can't remember what they are. - Past Surgical History Past Surgical History: Yes Neuro Surgical History: No Pertinent History Cardiac: No Pertinent History Respiratory: No Pertinent History Gastrointestinal: Colon Resection Genitourinary: No Pertinent History Musculoskeletal: No Pertinent History Female Surgical History: Hysterectomy Other Surgical History: colostomy - Social History Smoking Status: Never smoker Exposure to second hand smoke: No Drug Use: none Patient Lives Alone: Yes - Physical Exam General Appearance: no apparent distress, alert, anxiety Eye Exam: PERRL/EOMI Ears, Nose, Throat Exam: TMs normal, dry mucous membranes Neck Exam: normal inspection, non-tender, supple, full range of motion Respiratory Exam: normal breath sounds, lungs clear, airway intact, No chest tenderness, No respiratory distress Cardiovascular Exam: regular rate/rhythm, normal heart sounds, normal peripheral pulses Gastrointestinal/Abdomen Exam: soft, normal bowel sounds, tenderness (Mild diffuse), other (Left lower quadrant ostomy bag with stool and air in it) Rectal Exam: not done Back Exam: normal inspection, normal range of motion Extremity Exam: normal inspection, normal range of motion, pelvis stable Neurologic Exam: alert, oriented x 3, cooperative, 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, normal mood/affect Skin Exam: normal color, warm, dry Lymphatic Exam: No adenopathy SpO2 Interpretation: normal O2 Delivery: Room Air - Nursing Vital Signs Nursing Vital Signs: Initial Vital Signs Temperature 98.6 F 09/04/22 12:45 Pulse Rate 65 09/04/22 12:45 Respiratory Rate 17 09/04/22 12:45 Blood Pressure 153/89 09/04/22 12:45 O2 Sat by Pulse Oximetry 99 09/04/22 12:45 Pain Scale Pain Intensity 8 - Course Nursing assessment & vital signs reviewed: Yes Ordered Tests: Active Orders 24 hr Category Date Time Status Bedrest TOLERATED Activity 09/04/22 18:02 Active Admit as Inpatient ROUTINE Care 09/04/22 18:02 Active Catheter-Raleigh Calderon STAT Care 09/04/22 16:06 Completed Elevate HOB TOLERATED Care 09/04/22 18:02 Active IV Insertion STAT Care 09/04/22 13:20 Completed Nursing [Miscellaneous Nursing Order] ROUTINE Care 09/04/22 18:02 Active Telemetry q4h Care 09/04/22 14:26 Completed Weight,Daily 0600 Care 09/04/22 18:02 Active Clear Liquid Diet 09/05/22 Breakfast Active ABDOMEN AND PELVIS W/0 CONTRAS [CT] Stat Exams 09/04/22 14:01 Completed CHEST 1 VIEW (PORTABLE) Stat Exams 09/04/22 13:20 Completed AMYLASE Stat Lab 09/04/22 13:34 Completed BLOOD CULTURE Stat Lab 09/04/22 13:34 Received CBC W DIFF AM.LAB Lab 09/05/22 03:00 Completed CBC W DIFF Stat Lab 09/04/22 13:20 Completed CMP AM.LAB Lab 09/05/22 03:00 Completed CMP Stat Lab 09/04/22 13:34 Completed CULTURE,URINE Stat Lab 09/04/22 17:02 Received LIPASE Stat Lab 09/04/22 13:34 Completed Lactic Acid Stat Lab 09/04/22 13:55 Completed MAGNESIUM Stat Lab 09/04/22 13:20 Completed NT PRO BNP AM.LAB Lab 09/05/22 03:00 Completed UA W/RFX CULTURE Stat Lab 09/04/22 17:02 Completed Medication Summary Generic Name Dose Route Start Last Admin Trade Name Frecristal PRN Reason Stop Dose Admin Acetaminophen 650 mg 09/04/22 18:02 09/04/22 22:42 Acetaminophen 325 Mg Tablet PO 10/04/22 18:01 650 mg Q4H PRN PRN Administration PAIN, FEVER, HEADACHE Sodium Chloride 1,000 mls @ 100 mls/hr 09/04/22 18:02 09/05/22 03:57 Sodium Chloride 0.9% 1000 Ml IV 10/04/22 18:01 100 mls/hr .Q10H WILLIAM Administration Potassium Chloride 100 mls @ 50 mls/hr 09/04/22 22:30 09/05/22 00:32 Potassium Chloride 20 Meq In Water 100ml IV 09/05/22 02:29 50 mls/hr Q2H WILLIAM Administration Ondansetron HCl 4 mg 09/04/22 18:02 09/05/22 06:14 Ondansetron Hcl 4 Mg/2 Ml Vial IV 10/04/22 18:01 4 mg Q6H PRN PRN Administration NAUSEA/VOMITING Potassium Chloride 20 meq 09/04/22 22:30 09/05/22 04:01 Potassium Chloride Tab 10 Meq Tab PO 09/05/22 04:31 Not Given Q2H WILLIAM Discontinued Medications Generic Name Dose Route Start Last Admin Trade Name Freq PRN Reason Stop Dose Admin Hydromorphone HCl 1 mg 09/04/22 14:25 09/04/22 14:33 Hydromorphone 1 Mg/1ml Inj 1 Mg/Ml Syringe IV 09/04/22 14:26 1 mg STAT ONE Administration Hydromorphone HCl Confirm 09/04/22 14:30 Hydromorphone 1 Mg/1ml Inj 1 Mg/Ml Syringe Administered 09/04/22 14:31 Dose 1 mg .ROUTE .STK-MED ONE Sodium Chloride 1,000 mls @ 999 mls/hr 09/04/22 13:20 09/04/22 15:06 Sodium Chloride 0.9% 1000 Ml IV 09/04/22 14:20 Infused .Q1H1M STA Infusion Sodium Chloride Confirm 09/04/22 13:32 Sodium Chloride 0.9% 1000 Ml Administered 09/04/22 13:33 Dose 1,000 mls @ ud .ROUTE .STK-MED ONE Potassium Chloride 20 meq in 100 mls @ 50 mls/hr 09/04/22 14:30 09/04/22 16:55 Potassium Chloride 20 Meq In Water 100ml IV 09/04/22 18:29 50 mls/hr Q2H WILLIAM Administration Levofloxacin/Dextrose 500 mg in 100 mls @ 100 mls/hr 09/04/22 17:28 09/04/22 18:02 Levofloxacin 500mg/100ml D5w IV 09/04/22 18:27 100 mls/hr STAT STA Administration Sodium Chloride Confirm 09/04/22 17:55 Sodium Chloride 0.9% 1000 Ml Administered 09/04/22 17:56 Dose 1,000 mls @ ud .ROUTE .STK-MED ONE Potassium Chloride Confirm 09/04/22 14:30 Potassium Chloride 20 Meq In Water 100ml Administered 09/04/22 14:31 Dose 200 mls @ ud IV .STK-MED ONE Morphine Sulfate 2 mg 09/04/22 13:29 09/04/22 13:33 Morphine Sulfate 2 Mg/Ml Inj IV 09/04/22 13:30 2 mg STAT ONE Administration Morphine Sulfate Confirm 09/04/22 13:32 Morphine Sulfate 2 Mg/Ml Inj Administered 09/04/22 13:33 Dose 2 mg .ROUTE .STK-MED ONE Ondansetron HCl Confirm 09/05/22 06:13 Ondansetron Hcl 4 Mg/2 Ml Vial Administered 09/05/22 06:14 Dose 4 mg .ROUTE .STK-MED ONE Lab/Rad Data: Laboratory Result Diagrams 09/04/22 13:20 09/04/22 13:34 Laboratory Results 09/04/22 09/04/22 09/04/22 Range/Units 17:02 13:55 13:34 WBC (4.0-10.5) x10^3/uL RBC (4.1-5.4) x10^6/uL Hgb (12.0-16.0) g/dL Hct (35-47) % MCV (78-100) fL MCH (26-32) pg MCHC (32-36) g/dL RDW (11.5-14.0) % Plt Count (150-450) x10^3/uL MPV (7.5-11.0) fL Gran % (36.0-66.0) % Immature Gran % (Auto) (0.00-0.4) % Nucleat RBC Rel Count (0.00-0.1) % Eos # (Auto) (0-0.5) x10^3/uL Immature Gran # (Auto) (0.00-0.03) x10^3u/L Absolute Lymphs (auto) (1.0-4.6) x10^3/uL Absolute Monos (auto) (0.0-1.3) x10^3/uL Absolute Nucleated RBC (0.00-0.01) x10^3u/L Lymphocytes % (24.0-44.0) % Monocytes % (0.0-12.0) % Eosinophils % (0.00-5.0) % Basophils % (0.0-0.4) % Absolute Granulocytes (1.4-6.9) x10^3/uL Basophils # (0-0.4) x10^3/uL Sodium 131 L (137-145) mmol/L Potassium 2.2 L* (3.5-5.1) mmol/L Chloride 82 L (98-107) mmol/L Carbon Dioxide 38 H (22-30) mmol/L Anion Gap 13.3 (5-15) MEQ/L BUN 30 H (7-17) mg/dL Creatinine 1.38 H (0.52-1.04) mg/dL Estimated GFR 39.1 ML/MIN Glucose 101 (74-106) mg/dL Lactic Acid 2.0 (0.4-2.0) Calcium 9.1 (8.4-10.2) mg/dL Magnesium (1.6-2.3) mg/dL Total Bilirubin 2.10 H (0.2-1.3) mg/dL AST 34 (14-36) U/L ALT 22 (0-35) U/L Alkaline Phosphatase 101 (38-126) U/L Serum Total Protein 7.6 (6.3-8.2) g/dL Albumin 4.5 (3.5-5.0) g/dL Amylase 153 H (30-110) U/L Lipase 350 H (23-300) U/L Urinalys Dipstick Clnc MAIN LAB Urine Color YELLOW (YELLOW) Urine Appearance CLEAR (CLEAR) Urine pH 6.0 (5-6) Ur Specific [place] >=1.030 A (1.005-1.025) POC Urine Protein Conf 30 A (Negative) Urine Ketones LARGE-80 A (NEGATIVE) Urine Nitrite NEGATIVE (NEGATIVE) Urine Bilirubin MODERATE A (NEGATIVE) Urine Urobilinogen 0.2 (0-1) mg/dL Urine Leukocytes TRACE A (NEGATIVE) Urine WBC (Auto) 11-15 A (0-5) /HPF Urine RBC (Auto) 6-10 A (0-2) /HPF U Hyaline Cast (Auto) 11-25 A (0-2) /LPF U Epithel Cells (Auto) NONE (FEW) /HPF Urine Bacteria (Auto) RARE (NEGATIVE) /HPF Urine RBC SMALL A (0-5) Terry/ul Urine Mucus (Auto) SLIGHT A (NEGATIVE) /HPF Ur Culture Indicated? YES Urine Glucose NEGATIVE (NEGATIVE) mg/dL 09/04/22 09/04/22 Range/Units 13:20 13:20 WBC 6.5 (4.0-10.5) x10^3/uL RBC 4.74 (4.1-5.4) x10^6/uL Hgb 13.3 (12.0-16.0) g/dL Hct 41.3 (35-47) % MCV 87.1 (78-100) fL MCH 28.1 (26-32) pg MCHC 32.2 (32-36) g/dL RDW 13.8 (11.5-14.0) % Plt Count 256 (150-450) x10^3/uL MPV 9.9 (7.5-11.0) fL Gran % 79.8 H (36.0-66.0) % Immature Gran % (Auto) 0.5 H (0.00-0.4) % Nucleat RBC Rel Count 0.0 (0.00-0.1) % Eos # (Auto) 0.02 (0-0.5) x10^3/uL Immature Gran # (Auto) 0.03 (0.00-0.03) x10^3u/L Absolute Lymphs (auto) 0.72 L (1.0-4.6) x10^3/uL Absolute Monos (auto) 0.48 (0.0-1.3) x10^3/uL Absolute Nucleated RBC 0.00 (0.00-0.01) x10^3u/L Lymphocytes % 11.1 L (24.0-44.0) % Monocytes % 7.4 (0.0-12.0) % Eosinophils % 0.3 (0.00-5.0) % Basophils % 0.9 (0.0-0.4) % Absolute Granulocytes 5.20 (1.4-6.9) x10^3/uL Basophils # 0.06 (0-0.4) x10^3/uL Sodium (137-145) mmol/L Potassium (3.5-5.1) mmol/L Chloride (98-107) mmol/L Carbon Dioxide (22-30) mmol/L Anion Gap (5-15) MEQ/L BUN (7-17) mg/dL Creatinine (0.52-1.04) mg/dL Estimated GFR ML/MIN Glucose (74-106) mg/dL Lactic Acid (0.4-2.0) Calcium (8.4-10.2) mg/dL Magnesium 2.1 (1.6-2.3) mg/dL Total Bilirubin (0.2-1.3) mg/dL AST (14-36) U/L ALT (0-35) U/L Alkaline Phosphatase (38-126) U/L Serum Total Protein (6.3-8.2) g/dL Albumin (3.5-5.0) g/dL Amylase (30-110) U/L Lipase (23-300) U/L Urinalys Dipstick Clnc Urine Color (YELLOW) Urine Appearance (CLEAR) Urine pH (5-6) Ur Specific [place] (1.005-1.025) POC Urine Protein Conf (Negative) Urine Ketones (NEGATIVE) Urine Nitrite (NEGATIVE) Urine Bilirubin (NEGATIVE) Urine Urobilinogen (0-1) mg/dL Urine Leukocytes (NEGATIVE) Urine WBC (Auto) (0-5) /HPF Urine RBC (Auto) (0-2) /HPF U Hyaline Cast (Auto) (0-2) /LPF U Epithel Cells (Auto) (FEW) /HPF Urine Bacteria (Auto) (NEGATIVE) /HPF Urine RBC (0-5) Terry/ul Urine Mucus (Auto) (NEGATIVE) /HPF Ur Culture Indicated? Urine Glucose (NEGATIVE) mg/dL - Progress Progress: improved, pain not gone completely Counseled pt/family regarding: lab results, diagnosis, need for follow-up, katya reina - Progress Progress Note: 09/04/22 15:57 CAT scan of the abdomen pelvis shows a new distended stomach herniated into a large left mid abdominal wall defect possibly causing gastric outlet obstruction. 09/04/22 17:04 I reexamined the patient. She definitely had a incarcerated parastomal hernia. I was able to manually reduce this. Patient states that her nausea and pain significantly improved after reduction. Patient should still be admitted into the hospital for IV hydration and replacement of potassium. We are also awaiting the urinalysis. We had to catheterize this patient. (HAZEL STRATTON) This chart is in Dr. Torres's inbox. This patient was not endorsed seen evaluated or treated by Dr. Torres. 09/05/22 06:35 (YESSICA TORRES) - Departure Departure Disposition: In-patient Admission Critical Care Time: No - Departure Clinical Impression: Hypokalemia, UTI (urinary tract infection), Dehydration, Obstruction due to parastomal hernia Condition: Fair
[2022-09-04] MEDS ORDERED: Sodium Chloride 0.9% 1000 ML 1,000 ML IV STA (13:20)
[2022-09-04] MEDS ORDERED: MORPHINE SULFATE 2 MG INJ IV ONE (13:29)
[2022-09-04] MEDS ORDERED: Sodium Chloride 0.9% 1000 ML 1,000 ML ONE ×2 (13:32→17:55)
[2022-09-04] MEDS ORDERED: MORPHINE SULFATE 2 MG INJ ONE (13:32)
[2022-09-04 14:03] LABS: Basophil (Absolute #) 0.06 x10^3/uL (0-0.4); Eosinophil % 0.3 % (0.00-5.0); Eosinophil (Absolute #) 0.02 x10^3/uL (0-0.5); Hematocrit 41.3 % (35-47); Hemoglobin 13.3 g/dL (12.0-16.0); Lymphocyte (Absolute #) 0.72 x10^3/uL (1.0-4.6); Lymphocytes % 11.1 % (24.0-44.0); Mean Cell Volume 87.1 fL (78-100); Mean Corpuscular Hemoglobin 28.1 pg (26-32); Mean Corpuscular Hgb Concent. 32.2 g/dL (32-36); Mean Platelet Volume 9.9 fL (7.5-11.0); Monocyte (Absolute #) 0.48 x10^3/uL (0.0-1.3); Monocytes % 7.4 % (0.0-12.0); Neutrophil % 79.8 % (36.0-66.0); Platelet Count 256 x10^3/uL (150-450); Red Blood Count 4.74 x10^6/uL (4.1-5.4); Red Cell Distribution Width 13.8 % (11.5-14.0); White Blood Count 6.5 x10^3/uL (4.0-10.5)
[2022-09-04 14:11] LABS: ALBUMIN 4.5 g/dL (3.5-5.0); ANION GAP 13.3 MEQ/L (5-15); BILIRUBIN,TOTAL 2.1 mg/dL (0.2-1.3); Calcium 9.1 mg/dL (8.4-10.2); Creatinine 1 1.38 mg/dL (0.52-1.04); EST GLOMERULAR FILTRATION RATE 39.1 ML/MIN; Total Protein 7.6 g/dL (6.3-8.2)
--- NOTE | 2022-09-04 14:14 | XRAY ---
Indication: Cough and vomiting. Comparison: January 11, 2022 Portable chest again demonstrates chronic left lung base pleural effusion/thickening less than before. Remaining lungs clear again with a few incidental tiny calcified granulomas. Heart not enlarged with new left dual-lead pacemaker and stable chunky calcified node. Bony thorax intact again with osteopenia, degenerative changes, and old left rib fractures. Impression: Continued nonacute chest with chronic features.
[2022-09-04 14:17] LABS: Potassium 2.2 mmol/L (3.5-5.1)
[2022-09-04] MEDS ORDERED: Hydromorphone 1 mg/ml Injection IV ONE (14:25)
[2022-09-04] MEDS ORDERED: POTASSIUM CHLORIDE 20 mEq IN WATER 100ML 200 ML IV ONE (14:30)
[2022-09-04] MEDS ORDERED: Hydromorphone 1 mg/ml Injection ONE (14:30)
[2022-09-04 14:36] LABS: INFLUENZA A NEGATIVE (NEGATIVE); INFLUENZA B NEGATIVE (NEGATIVE); RESPIRATORY SYNCTIAL VIRUS NEGATIVE (Negative); SARS-CoV-2 Xpert Express NEGATIVE (NEGATIVE)
[2022-09-04] MEDS: POTASSIUM CHLORIDE 20 mEq IN WATER 100ML 20 MEQ/100 ML BAG IV SCH ×2 (14:39→16:55)
--- NOTE | 2022-09-04 15:31 | XRAY ---
Indication: Abdomen pain. Nausea, vomiting, and diarrhea. Multiple contiguous axial images obtained through the abdomen and pelvis without contrast. Comparison: November 21, 2019 Lung bases demonstrate stable left base pleural thickening with associated old rib fractures/hardware. No infiltrate or effusion. Heart borderline enlarged with new partially visualized pacer leads. Stomach is now massively fluid distended with distal stomach now extending into previous large left midabdomen abdominal wall defect with colostomy. Suspect gastric outlet obstruction due to the ventral hernia. Left midabdomen colostomy again demonstrates underlying herniated loops of small/large bowel loops and omental fat. No free fluid/air. There remains tiny hepatic/splenic calcified granulomas and hysterectomy. Gallbladder demonstrates new dense intraluminal sludge/gravel, no abnormal biliary distention. Remaining liver, gallbladder, pancreas, spleen, adrenal glands, kidneys, ureters, and bladder are unremarkable for noncontrast exam. Stable mild aortoiliac calcifications without AAA. Osseous structures intact again with osteopenia, minimal lumbosacral junction degenerative changes, and mild bilateral hip generative arthropathy. Stable tiny fatty right inguinal hernia. Impression: 1. New massively fluid distended stomach now seen herniating into large left midabdomen abdominal wall defect, site of colostomy. Suspect resulting gastric outlet obstruction. 2. Again left midabdomen colostomy with underlying herniated small/large bowel loops and omental fat. 3. New gallbladder sludge/gravel. 4. Again chronic findings including left base pleural thickening with associated old rib fractures, fracture ascribe disease, tiny fatty right inguinal hernia, chronic bony findings.
[2022-09-04 17:15] LABS: Appearance CLEAR (CLEAR); Glucose NEGATIVE (NEGATIVE)
[2022-09-04 17:16] LABS: Bilirubin MODERATE (NEGATIVE); Dipstick done @ ? MAIN LAB; Ketones LARGE-80 (NEGATIVE); Nitrite NEGATIVE (NEGATIVE); Protein,Urine Dip 30 (Negative); RBC SMALL Ery/ul (0-5); Specific Gravity >=1.030 (1.005-1.025); Urobilinogen 0.2 mg/dL (0-1)
[2022-09-04 17:17] LABS: Bacteria RARE /HPF (NEGATIVE); Mucus SLIGHT /HPF (NEGATIVE)
[2022-09-04 17:18] LABS: Urine Cultured Indicated? YES
[2022-09-04] MEDS ORDERED: Levofloxacin 500MG/100ML D5W 500 MG/100 ML BAG IV STA (17:28)
[2022-09-04] MEDS ORDERED: Zofran 4 MG/2 ML VIAL IV PRN (18:02)
[2022-09-04] MEDS ORDERED: TYLENOL 325 MG PO PRN (18:02)
[2022-09-04] MEDS: Sodium Chloride 0.9% 1000 ML 1,000 ML IV SCH (18:03)
[2022-09-04] MEDS: POTASSIUM CHLORIDE 20 mEq IN WATER 100ML 100 ML IV SCH (22:42)
[2022-09-04] MEDS: Klor Con PO SCH (22:43)
[2022-09-05] MEDS: POTASSIUM CHLORIDE 20 mEq IN WATER 100ML 100 ML IV SCH ×3 (00:32→08:50)
[2022-09-05] MEDS: Klor Con PO SCH ×4 (00:32→04:01)
[2022-09-05 03:02] LABS: Absolute Neutrophil Ct (ANC) 4.71 x10^3/uL (1.4-6.9); Basophil (Absolute #) 0.05 x10^3/uL (0-0.4); Eosinophil (Absolute #) 0.06 x10^3/uL (0-0.5); Hemoglobin 11.8 g/dL (12.0-16.0); Lymphocyte (Absolute #) 0.79 x10^3/uL (1.0-4.6); Lymphocytes % 12.6 % (24.0-44.0); Mean Cell Volume 87.3 fL (78-100); Mean Corpuscular Hemoglobin 27.8 pg (26-32); Mean Corpuscular Hgb Concent. 31.9 g/dL (32-36); Mean Platelet Volume 9.8 fL (7.5-11.0); Monocyte (Absolute #) 0.64 x10^3/uL (0.0-1.3); Monocytes % 10.2 % (0.0-12.0); Neutrophil % 75.1 % (36.0-66.0); Platelet Count 220 x10^3/uL (150-450); Red Blood Count 4.24 x10^6/uL (4.1-5.4); Red Cell Distribution Width 13.7 % (11.5-14.0); White Blood Count 6.3 x10^3/uL (4.0-10.5)
[2022-09-05 03:24] LABS: ALBUMIN 3.7 g/dL (3.5-5.0); ANION GAP 9.3 MEQ/L (5-15); BILIRUBIN,TOTAL 1.5 mg/dL (0.2-1.3); Calcium 8.3 mg/dL (8.4-10.2); Creatinine 1 1.04 mg/dL (0.52-1.04); EST GLOMERULAR FILTRATION RATE 54.2 ML/MIN; Potassium 3.1 mmol/L (3.5-5.1); Total Protein 6.5 g/dL (6.3-8.2)
[2022-09-05] MEDS: Sodium Chloride 0.9% 1000 ML 1,000 ML IV SCH (03:57)
[2022-09-05] MEDS ORDERED: Zofran 4 MG/2 ML VIAL ONE (06:13)
[2022-09-05 07:20] VITALS: BP 138/63; PULSE 70; O2SAT 92
[2022-09-05] MEDS ORDERED: MORPHINE SULFATE 2 MG INJ IV PRN (07:26)
[2022-09-05] MEDS ORDERED: MORPHINE SULFATE 4 MG INJ IV PRN (09:00)
[2022-09-05] MEDS ORDERED: MORPHINE SULFATE 2 MG INJ IV ONE (09:11)
--- NOTE | 2022-09-10 19:45 | PCM.SSS ---
History of Present Illness - Chief Complaint Chief Complaint: Hypokalemia, parastomal hernia Date: 09/05/22 History of Present Illness: is a 82 year old female. Presented to ER with acute parastomal abdominal pain, pt. was partially reduced to relieve the pain in er and admitted for observation, the pain returned within 12 hours and I was unable to relieve t he pain, the patient was scheduled to have repair in [place], i discussed the severity of the pain and illness and patient was accepted to transfer to [facility] ER for emergent surgery to repair and decrease the pain related to the marked hernia. - Review of Systems Constitutional: No Fever, No Chills Eyes: No Symptoms Ears, Nose, & Throat: No Symptoms Respiratory: No Cough, No Short Of Breath Cardiac: No Chest Pain, No Edema, No Syncope Abdominal/Gastrointestinal: Abdominal Pain, Nausea, Vomiting, No Diarrhea Genitourinary Symptoms: No Dysuria Musculoskeletal: No Back Pain, No Neck Pain Skin: No Rash Neurological: No Dizziness, No Focal Weakness, No Sensory Changes Psychological: No Symptoms Endocrine: No Symptoms Hematologic/Lymphatic: No Symptoms Immunological/Allergic: No Symptoms Medications & Allergies Home Medications: Home Medication List Amiodarone HCl [Pacerone] 100 mg PO DAILY 01/11/22 [History Confirmed 09/04/22] Apixaban [Eliquis 5 mg Tablet] 5 mg PO BID 01/11/22 [History Confirmed 09/04/22] Diltiazem HCl [Diltiazem ER] 120 mg PO DAILY 01/11/22 [History Confirmed 09/04/22] Omeprazole 40 mg PO DAILY 01/11/22 [History Confirmed 09/04/22] Oxybutynin Chloride [Oxybutynin Chloride ER] 5 mg PO DAILY 01/11/22 [History Confirmed 09/04/22] Albuterol Sulfate [Albuterol Sulfate Hfa] 2 puff PO Q4H PRN PRN 09/04/22 [History Confirmed 09/04/22] Cholecalciferol (Vitamin D3) [Vitamin D] 1 tab PO WEEKLY 09/04/22 [History Confirmed 09/04/22] Ferrous Sulfate 325 mg PO DAILY 09/04/22 [History Confirmed 09/04/22] Levothyroxine Sodium 50 mcg PO DAILY 09/04/22 [History Confirmed 09/04/22] ondansetron HCL [Ondansetron HCl] 1 tab PO TID PRN 09/04/22 [History Confirmed 09/04/22] Allergies/Adverse Reactions: Allergies Allergy/AdvReac Type Severity Reaction Status Date / Time losartan Allergy Severe syncope Verified 09/04/22 12:56 clindamycin Allergy Intermediate Rash Verified 09/04/22 12:56 Penicillins Allergy Intermediate Verified 09/04/22 12:56 Sulfa (Sulfonamide Allergy Intermediate Verified 09/04/22 12:56 Antibiotics) [Sulfa(Sulfonamide Antibiotics)] - Past Medical History Past Medical History: Yes Neurological History: Dementia ENT History: Cataracts Cardiac History: Other CARDIAC HISTORY: Arrhythmia Respiratory History: Other Endocrine Medical History: No Pertinent History Musculoskelatal History: Osteoarthritis GI Medical History: Colorectal Cancer History: No Pertinent History Pyscho-Social History: No Pertinent History Reproductive Disorders: No Pertinent History Comment: - - Female History Are you now?: No - Past Surgical History Past Surgical History: Yes Neuro Surgical History: No Pertinent History Cardiac History: No Pertinent History Respiratory Surgery: No Pertinent History GI Surgical History: Colon Resection Genitourinary Surgical Hx: No Pertinent History Musculskeletal Surgical Hx: No Pertinent History Female Surgical History: Hysterectomy Other Surgical History: colostomy - Social History Smoking Status: Never smoker Exposure to second hand smoke: No Alcohol: None Drug Use: none - Physical Exam General Appearance: moderate distress Gastrointestinal/Abdomen Exam: tenderness Results - Labs Lab/Micro Results: Microbiology 09/04/22 13:45 Blood Culture Gram Stain - Final Blood Not Reportable Blood Culture - Final NO GROWTH 09/04/22 13:34 Blood Culture Gram Stain - Final Blood Not Reportable Blood Culture - Final NO GROWTH 09/04/22 17:02 Urine Culture - Final Urine, Void NO GROWTH Assessment/Plan (1) Parastomal hernia Status: Acute Code(s): K43.5 - PARASTOMAL HERNIA WITHOUT OBSTRUCTION OR GANGRENE Hospital Summary - Hospital Course Hospital Course: as per hpi, admitted the pain returned and unable to even partially relieve the pain from very large parastomal hernia, transferred to [place] ER. - Vitals & Intake/Output Vital Signs: Vital Signs Temperature 98.4 F 09/05/22 07:19 Pulse Rate 70 09/05/22 07:19 Respiratory Rate 16 09/05/22 07:19 Blood Pressure 138/63 09/05/22 07:19 O2 Sat by Pulse Oximetry 92 L 09/05/22 07:19 - Lab Result Diagrams: 09/05/22 03:00 09/05/22 06:24 Micro Results-Entire Visit: Microbiology 09/04/22 13:45 Blood Culture Gram Stain - Final Blood Not Reportable Blood Culture - Final NO GROWTH 09/04/22 13:34 Blood Culture Gram Stain - Final Blood Not Reportable Blood Culture - Final NO GROWTH 09/04/22 17:02 Urine Culture - Final Urine, Void NO GROWTH - Discharge Discharge Date: 09/05/22 Disposition: XFER OTHER Condition: Fair Prescriptions: No Action Apixaban [Eliquis 5 mg Tablet] 5 mg PO BID Amiodarone HCl [Pacerone] 100 mg PO DAILY Oxybutynin Chloride [Oxybutynin Chloride ER] 5 mg PO DAILY Diltiazem HCl [Diltiazem ER] 120 mg PO DAILY Omeprazole 40 mg PO DAILY Cholecalciferol (Vitamin D3) [Vitamin D] 1 tab PO WEEKLY Albuterol Sulfate [Albuterol Sulfate Hfa] 2 puff PO Q4H PRN PRN PRN Reason: Shortness Of Breath ondansetron HCL [Ondansetron HCl] 1 tab PO TID PRN PRN Reason: Nausea Levothyroxine Sodium 50 mcg PO DAILY Ferrous Sulfate 325 mg PO DAILY Follow up with: ANTHONY SANTOS MD [Primary Care Provider] -
== END 2022-09-05 10:22 ==
LOC: ED 12:44 → MED SURG 17:51
PROVIDERS: ADMIT Family Medicine; ATTEND Family Medicine
DX: K43.5 Parastomal hernia without obstruction or gangrene (principal); E86.0 Dehydration; I10 Essential (primary) hypertension; E03.9 Hypothyroidism, unspecified; F03.90 Unspecified dementia, unspecified severity, without behavioral disturbance, psychotic disturbance, mood disturbance, and anxiety; Z79.899 Other long term (current) drug therapy; Z79.01 Long term (current) use of anticoagulants; Z20.828 Contact with and (suspected) exposure to other viral communicable diseases; Z85.038 Personal history of other malignant neoplasm of large intestine; Z93.3 Colostomy status
CPT/HCPCS: 0241U; 36000; 36415; 51702; 71045; 74176; 80053; 81015; 82150; 83605; 83690; 83735; 83880; 84132; 85025; 87040; 87086; 93268; 96360; 96374; 96375; 99285; G0378; J1170; J1956; J2270; J2405; J3480; A9270-GY

== ENCOUNTER 2024-12-23 13:04 | Emergency (ER) | payer MEDICARE ==
[2024-12-23 13:13] VITALS: TEMP 97.2
[2024-12-23] MEDS ORDERED: MORPHINE SULFATE 4 MG INJ ONE (13:24)
[2024-12-23] MEDS: MORPHINE SULFATE 4 MG INJ IM ONE (13:27)
--- NOTE | 2024-12-23 13:55 | ERPHSYRPT ---
- History of Present Illness Time Seen by Provider: 12/23/24 13:05 Source: patient, family, EMS Exam Limitations: no limitations Patient Subjective Stated Complaint: Pt c/o of left sided hip pain that radiates posteriorly down the leg Triage Nursing Assessment: Pt brought to the ER by EMS, hypertensive, rates pain as 10/10, pulses normal, skin n/w/d, continual pain with no relief, pain deep in hip, no difficulty breathing, denies chest pain, amador lower ext edema, denies N&V, doesn't appear to be in any distress Physician History: 84 years old female presented in the ER with complaint of left hip pain with radiation to the left lower leg, sharp shooting, worsening for the last 1 week. Questionable history of fall reported by daughter almost 2 weeks ago. Patient has previous surgeries on the left lower extremity. Denies any numbness or focal weakness of left lower extremity. Has history of back pain but this pain is more in the left hip. Patient reports he woke up few days ago and felt that the needle sensation in the left hip at 1 point but does not remember any other trauma or fall. No loss of bowel or bladder control. Has taken Tylenol with no significant relief. Allergies/Adverse Reactions: losartan Allergy (Severe, Verified 12/23/24 13:14) syncope listed in dr carrillo discharge notes clindamycin Allergy (Intermediate, Verified 12/23/24 13:14) Rash Penicillins Allergy (Intermediate, Verified 12/23/24 13:14) pt cant rememer reaction. Sulfa (Sulfonamide Antibiotics) [Sulfa(Sulfonamide Antibiotics)] Allergy (Intermediate, Verified 12/23/24 13:14) pt cant remember reaction Home Medications: Amiodarone HCl [Pacerone] 200 mg PO DAILY 01/11/22 [History] Apixaban [Eliquis 5 mg Tablet] 5 mg PO BID 01/11/22 [History] Omeprazole 40 mg PO DAILY 01/11/22 [History] Levothyroxine Sodium 50 mcg PO .ON , W, , SAT, S 09/04/22 [History] Cetirizine HCl 10 mg PO DAILY 12/23/24 [History] Levothyroxine Sodium 75 Mcg [Synthroid 75 Mcg] 75 mcg PO .ON AND Saturday12/23/24 [History] Memantine HCl [Memantine HCl ER] 28 mg PO DAILY 12/23/24 [History] Mirabegron [Myrbetriq] 25 mg PO DAILY 12/23/24 [History] Montelukast Sodium 10 mg [Singulair 10 MG] 10 mg PO DAILY 12/23/24 [History] Sertraline HCl [Zoloft] 25 mg PO DAILY 12/23/24 [History] Hx Tetanus, Diphtheria Vaccination/Date Given: (UNSURE) Hx Influenza Vaccination/Date Given: Yes Hx Pneumococcal Vaccination/Date Given: No Travel Risk - International Travel Have you traveled outside of the country in past 3 weeks: No - Emerging Infectious Disease Are you exhibiting symptoms associated with any current EIDs: No - Review of Systems Constitutional: No Symptoms Ears, Nose, & Throat: No Symptoms Respiratory: No Symptoms Cardiac: No Symptoms Abdominal/Gastrointestinal: No Symptoms Musculoskeletal: Arthralgias Skin: No Symptoms Neurological: No Symptoms Endocrine: No Symptoms Hematologic/Lymphatic: No Symptoms - Past Medical History Pertinent Past Medical History: Yes Neurological History: Dementia ENT History: Cataracts Cardiac History: Other Respiratory History: Other Endocrine Medical History: No Pertinent History Musculoskeletal History: Osteoarthritis GI Medical History: Colorectal Cancer History: No Pertinent History Psycho-Social History: No Pertinent History Female Reproductive Disorders: No Pertinent History Other Medical History: - - Past Surgical History Past Surgical History: Yes Neuro Surgical History: No Pertinent History Cardiac: No Pertinent History Respiratory: No Pertinent History Gastrointestinal: Colon Resection Genitourinary: No Pertinent History Musculoskeletal: No Pertinent History Female Surgical History: Hysterectomy Other Surgical History: colostomy - Social History Smoking Status: Never smoker Exposure to second hand smoke: No Drug Use: none - Social Determinants of Health Will the patient participate in the screening: Yes Do you worry about a steady place to live?: No Do you have any problems with any of the following?: No known problems In the past 12 months,have you had to go without utilities?: No Transportation Issues: No Has anyone in your support network made you feel unsafe?: No Have you or anyone in your house had to go w/o enough food: No - Nursing Vital Signs Nursing Vital Signs: Initial Vital Signs Temperature 97.2 F 12/23/24 13:06 Pulse Rate 61 12/23/24 13:06 Respiratory Rate 19 12/23/24 13:06 Blood Pressure 167/105 12/23/24 13:06 O2 Sat by Pulse Oximetry 96 12/23/24 13:06 Pain Scale Pain Intensity 5 - Physical Exam General Appearance: no apparent distress Ears, Nose, Throat Exam: normal ENT inspection Neck Exam: normal inspection, non-tender, supple, full range of motion Respiratory Exam: normal breath sounds, lungs clear Cardiovascular Exam: regular rate/rhythm, normal heart sounds Gastrointestinal/Abdomen Exam: soft, normal bowel sounds, No tenderness Back Exam: normal inspection, normal range of motion, No vertebral tenderness Extremity Exam: limited range of motion (Left hip with point tenderness), tenderness Neurologic Exam: alert, oriented x 3, cooperative, sensation nml, No motor deficits Skin Exam: normal color SpO2 Interpretation: normal SpO2: 96 O2 Delivery: Room Air Ordered Tests: Active Orders 24 hr Category Date Time Status HIP UNI (2V) INCL PEL IF DONE Stat Exams 12/23/24 13:21 Completed Medication Summary Discontinued Medications Generic Name Dose Route Start Last Admin Trade Name Lcq PRN Reason Stop Dose Admin Hydrocodone Bitart/Acetaminophen 1 tab 12/23/24 15:25 12/23/24 15:35 Hydrocodone/Apap 5/325 1 Tab Tablet PO 12/23/24 15:26 1 tab STAT ONE Administration Hydrocodone Bitart/Acetaminophen Confirm 12/23/24 15:29 Hydrocodone/Apap 5/325 1 Tab Tablet Administered 12/23/24 15:30 Dose 1 tab .ROUTE .STK-MED ONE Morphine Sulfate 4 mg 12/23/24 13:21 12/23/24 13:27 Morphine Sulfate 4 Mg/Ml Injection IM 12/23/24 13:22 4 mg STAT ONE Administration Morphine Sulfate Confirm 12/23/24 13:24 Morphine Sulfate 4 Mg/Ml Injection Administered 12/23/24 13:25 Dose 4 mg .ROUTE .STK-MED ONE Triamcinolone Acetonide 40 mg 12/23/24 15:25 12/23/24 15:33 Triamcinolone Acetonide 40 Mg/Ml Ml IM 12/23/24 15:26 40 mg 1XONLY ONE Administration Triamcinolone Acetonide Confirm 12/23/24 15:29 Triamcinolone Acetonide 40 Mg/Ml Ml Administered 12/23/24 15:30 Dose 40 mg .ROUTE .STK-MED ONE - Progress Progress: improved, pain not gone completely, re-examined Progress Note: 12/23/24 16:23 84-year-old is evaluated in the ER for left hip pain with questionable history of fall 2 weeks ago. She has intact distal neurovascular. No midline tenderness or step-off deformity. She is given symptomatic treatment along with steroid shot, on reevaluation she is feeling better but pain is not completely resolved. Has improved range of motion. X-rays are negative for fracture dislocation but arthritic changes reviewed by me followed by official read. I believe patient has arthritis, recommended taking Tylenol as needed and using cane/walker for ambulation to avoid a fall. Patient /family wanted stronger pain medication, discussed the risk of fall and complication associated with pain medication which they understand but still want the pain medication, given [place] and recommended patient to stay with her family. Patient would be going to her daughter house. Recommended outpatient follow-up with orthopedics. Discussed signs symptoms of worsening condition return to ER which patient and family seem understanding. Stable for discharge. Counseled pt/family regarding: diagnosis, need for follow-up, rad results Medical Desision Making - Independent Historian Additional History obtained from: Family - Diagnostic Testing Diagnostic test were ordered, analyzed, and reviewed by me: Yes Radiological Interpretation: Interpreted by me, Reviewed by me - Risk of complications The pt has a mod risk of morbidity or mortality based on: Need for prescription drug management - Departure Departure Disposition: Home Clinical Impression: Acute pain of left hip Condition: Stable Critical Care Time: No Referrals: ANTHONY SANTOS MD [Primary Care Provider] - Follow up with PCP 1 day ENE RAE DO [ACTIVE STAFF] - Follow up/PCP as directed (Call for appointment) Instructions: Hip pain in adults Additional Instructions: Take pain medications as needed only. Stay with responsible person for while being on pain medication and use cane/walker for ambulation to avoid a fall. Intermittent ice application. Follow-up with orthopedics for reevaluation. Return to ER for intractable pain, difficulty movements. Prescriptions: Hydrocodone/Acetaminophen [Hydrocodone-Acetamin 5-325 mg] 1 tab PO Q6HPRN PRN 3 Days #12 tablet MDD 4 PRN Reason: Pain
--- NOTE | 2024-12-23 14:18 | XRAY ---
Indication: Left hip pain. Comparison: None AP pelvis and 2 view left hip demonstrates osteopenia, mild right hip degenerative joint space narrowing, mild diffuse scattered vascular calcifications, right pelvic colonic fecal debris, and surgical clip adjacent to left iliac crest. No other bony, articular, or soft tissue abnormalities.
[2024-12-23] MEDS ORDERED: Kenalog-40 ONE (15:29)
[2024-12-23] MEDS ORDERED: NORCO 5/325 MG ONE (15:29)
[2024-12-23] MEDS: Kenalog-40 IM ONE (15:33)
[2024-12-23] MEDS: NORCO 5/325 MG PO ONE (15:35)
[2024-12-23 16:26] VITALS: O2SAT 96
[2024-12-23 16:32] VITALS: BP 169/98; PULSE 60; RESP 21
== END 2024-12-23 16:42 | disposition home or self-care (01) ==
LOC: ED 13:04
DX: M25.552 Pain in left hip (principal); Z79.02 Long term (current) use of antithrombotics/antiplatelets; Z79.899 Other long term (current) drug therapy; Z79.891 Long term (current) use of opiate analgesic
CPT/HCPCS: 73502; 96372; 99283; 99284; J2270; J3301; A9270-GY

== ENCOUNTER 2024-12-28 08:52 | Observation (INO) | payer MEDICARE ==
--- NOTE | 2024-12-28 09:03 | ERPHSYRPT ---
- History of Present Illness Time Seen by Provider: 12/28/24 09:03 Source: patient, family Exam Limitations: no limitations Physician History: This is an 84-year-old white female patient of Dr. Santos who arrives by private vehicle accompanied by her son who was sent over from the patient's outpatient clinic because of severe back pain. Patient fell approximately 3 weeks ago. Patient's back pain has worsened over the last 6 days. No known recurrent fall. Patient has a history of dementia, hypothyroidism, COPD. She has a history of arrhythmia and is on Eliquis she has a history of colorectal cancer. She has had colon resection with a right lower quadrant and colostomy. Patient underwent a pelvic CT scan for evaluation of left hip pain dated 12/25/2024. This was at the request of orthopedic clinic. I reviewed the impression that stated no acute fracture or dislocation. There is bilateral lower quadrant ventral hernia defects with noncomplicated herniated omental fat and bowel loops. There is a right lower quadrant colostomy. Timing/Duration: week(s) (3), worse (Back pain worse in the last 6 days) Method of Injury: fall (3 weeks ago) Quality: sharp Back Pain Location: T-spine, lumbar spine Severity of Pain-Max: moderate Severity of Pain-Current: moderate Modifying Factors: Improves With: movement Associated Symptoms: lower back pain, No urinary incontinence, No loss of bowel control, No numbness in legs/feet Previous symptoms: same symptoms as today, no recent treatment Allergies/Adverse Reactions: losartan Allergy (Severe, Verified 12/28/24 09:51) syncope listed in dr carrillo discharge notes clindamycin Allergy (Intermediate, Verified 12/28/24 09:51) Rash Penicillins Allergy (Intermediate, Verified 12/28/24 09:51) pt cant rememer reaction. Sulfa (Sulfonamide Antibiotics) [Sulfa(Sulfonamide Antibiotics)] Allergy (Intermediate, Verified 12/28/24 09:51) pt cant remember reaction Home Medications: Amiodarone HCl [Pacerone] 200 mg PO DAILY 01/11/22 [History] Apixaban [Eliquis 5 mg Tablet] 5 mg PO BID 01/11/22 [History] Omeprazole 40 mg PO DAILY 01/11/22 [History] Levothyroxine Sodium 50 mcg PO .ON M, W, , SAT, S 09/04/22 [History] Cetirizine HCl 10 mg PO DAILY 12/23/24 [History] Levothyroxine Sodium 75 Mcg [Synthroid 75 Mcg] 75 mcg PO .ON AND Saturday12/23/24 [History] Memantine HCl [Memantine HCl ER] 28 mg PO DAILY 12/23/24 [History] Mirabegron [Myrbetriq] 25 mg PO DAILY 12/23/24 [History] Montelukast Sodium 10 mg [Singulair 10 MG] 10 mg PO DAILY 12/23/24 [History] Sertraline HCl [Zoloft] 25 mg PO DAILY 12/23/24 [History] Hx Tetanus, Diphtheria Vaccination/Date Given: (UNSURE) Hx Influenza Vaccination/Date Given: Yes Hx Pneumococcal Vaccination/Date Given: No Travel Risk - International Travel Have you traveled outside of the country in past 3 weeks: No - Emerging Infectious Disease Are you exhibiting symptoms associated with any current EIDs: No - Review of Systems Constitutional: No Symptoms Eyes: No Symptoms Ears, Nose, & Throat: No Symptoms Respiratory: No Symptoms Cardiac: No Symptoms Abdominal/Gastrointestinal: No Symptoms Genitourinary Symptoms: No Symptoms Musculoskeletal: Back Pain, Fall (Weeks ago), No Neck Pain Skin: No Symptoms, Cellulitis Neurological: No Symptoms Psychological: No Symptoms Endocrine: No Symptoms Hematologic/Lymphatic: No Symptoms Immunological/Allergic: No Symptoms All Other Systems: Reviewed and Negative - Past Medical History Pertinent Past Medical History: Yes Neurological History: Dementia ENT History: Cataracts Cardiac History: Other Respiratory History: Other Endocrine Medical History: No Pertinent History Musculoskeletal History: Osteoarthritis GI Medical History: Colorectal Cancer History: No Pertinent History Psycho-Social History: No Pertinent History Female Reproductive Disorders: No Pertinent History Other Medical History: - - Past Surgical History Past Surgical History: Yes Neuro Surgical History: No Pertinent History Cardiac: No Pertinent History Respiratory: No Pertinent History Gastrointestinal: Colon Resection Genitourinary: No Pertinent History Musculoskeletal: No Pertinent History Female Surgical History: Hysterectomy Other Surgical History: colostomy - Social History Smoking Status: Never smoker Exposure to second hand smoke: No Drug Use: none - Social Determinants of Health Will the patient participate in the screening: Yes Do you worry about a steady place to live?: No In the past 12 months,have you had to go without utilities?: No Transportation Issues: No Has anyone in your support network made you feel unsafe?: No Have you or anyone in your house had to go w/o enough food: No - Nursing Vital Signs Nursing Vital Signs: Initial Vital Signs Pulse Rate 87 12/28/24 08:58 Respiratory Rate 18 12/28/24 08:58 Blood Pressure 160/97 12/28/24 08:58 O2 Sat by Pulse Oximetry 95 12/28/24 08:58 Pain Scale Pain Intensity 10 - Physical Exam General Appearance: mild distress, alert, anxiety Eye Exam: PERRL/EOMI, eyes nml inspection Ears, Nose, Throat Exam: normal ENT inspection, moist mucous membranes Neck Exam: normal inspection, non-tender, supple, full range of motion Respiratory Exam: normal breath sounds, lungs clear, No chest tenderness, No respiratory distress Cardiovascular Exam: regular rate/rhythm, normal heart sounds Gastrointestinal Exam: soft, normal bowel sounds, other (Right lower quadrant colostomy present), No tenderness Pelvic Exam: not done Rectal Exam: not done Back Exam: decreased range of motion, muscle spasm (Left side lumbar level), No vertebral tenderness, No point tenderness Extremity Exam: normal range of motion, pelvis stable, pedal edema (Significant feet and ankle edema bilaterally) Neurologic Exam: alert, oriented x 3, cooperative, 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 tested, sensation nml Skin Exam: normal color, warm, dry Lymphatic Exam: No adenopathy SpO2 Interpretation: normal O2 Delivery: Room Air - Course Nursing assessment & vital signs reviewed: Yes Ordered Tests: Active Orders 24 hr Category Date Time Status Cath,Straight [Straight Cath] STAT Care 12/28/24 09:47 Active IV Insertion STAT Care 12/28/24 10:41 Active ACO SDOH Referral ONCE Cons 12/28/24 09:11 Active LUMBAR SPINE W/O [CT] Stat Exams 12/28/24 09:22 Completed THORACIC SPINE W/O CONTRAST [CT] Stat Exams 12/28/24 09:22 Completed CBC W DIFF Stat Lab 12/28/24 11:09 Completed CMP Stat Lab 12/28/24 11:09 Completed CULTURE,URINE Stat Lab 12/28/24 09:47 Ordered NT PRO BNPII Stat Lab 12/28/24 11:09 Completed Medication Summary Discontinued Medications Generic Name Dose Route Start Last Admin Trade Name Freq PRN Reason Stop Dose Admin Morphine Sulfate 2 mg 12/28/24 11:03 12/28/24 11:10 Morphine Sulfate 2 Mg/Ml Inj IV 12/28/24 11:04 2 mg STAT ONE Administration Morphine Sulfate Confirm 12/28/24 11:06 Morphine Sulfate 2 Mg/Ml Inj Administered 12/28/24 11:07 Dose 2 mg .ROUTE .STK-MED ONE Ondansetron HCl 4 mg 12/28/24 11:03 12/28/24 11:07 Ondansetron Hcl 4 Mg/2 Ml Vial IV 12/28/24 11:04 4 mg STAT ONE Administration Ondansetron HCl Confirm 12/28/24 11:05 Ondansetron Hcl 4 Mg/2 Ml Vial Administered 12/28/24 11:06 Dose 4 mg .ROUTE .STK-MED ONE Orphenadrine Citrate 60 mg 12/28/24 11:03 12/28/24 11:09 Orphenadrine Citrate 60 Mg/2 Ml Vial IV 12/28/24 11:04 60 mg STAT ONE Administration Orphenadrine Citrate Confirm 12/28/24 11:05 Orphenadrine Citrate 60 Mg/2 Ml Vial Administered 12/28/24 11:06 Dose 60 mg .ROUTE .STK-MED ONE Lab/Rad Data: Laboratory Result Diagrams 12/28/24 11:09 12/28/24 11:09 Laboratory Results 12/28/24 12/28/24 12/28/24 Range/Units 11:09 11:09 09:47 WBC 7.5 (3.98-10.04) x10^3/uL RBC 4.57 (3.93-5.22) x10^6/uL Hgb 12.9 (11.2-15.7) g/dL Hct 39.4 (34.1-44.9) % MCV 86.2 (79.4-94.8) fL MCH 28.2 (25.6-32.2) pg MCHC 32.7 (32.2-35.5) g/dL RDW 14.5 H (11.7-14.4) % Plt Count 372 H (182-369) x10^3/uL MPV 9.1 L (9.4-12.3) fL Gran % 91.6 H (34.0-71.1) % Immature Gran % (Auto) 0.5 H (0.001-0.429) % Nucleat RBC Rel Count 0.0 (0.00-0.2) % Eos # (Auto) 0 L (0.04-0.36) x10^3/uL Immature Gran # (Auto) 0.04 H (0.001-0.031) x10^3u/L Absolute Lymphs (auto) 0.29 L (1.18-3.74) x10^3/uL Absolute Monos (auto) 0.29 (0.24-0.86) x10^3/uL Absolute Nucleated RBC 0.00 (0.00-0.012) x10^3u/L Lymphocytes % 3.9 L (19.3-51.7) % Monocytes % 3.9 L (4.7-12.5) % Eosinophils % 0.0 L (0.7-5.8) % Basophils % 0.1 (0.1-1.2) % Absolute Granulocytes 6.85 H (1.56-6.13) x10^3/uL Basophils # 0.01 (0.01-0.08) x10^3/uL Sodium 133 L (135-145) mmol/L Potassium 4.2 (3.5-5.1) mmol/L Chloride 102 (98-107) mmol/L Carbon Dioxide 22 (22-30) mmol/L Anion Gap 13.0 (5-15) MEQ/L BUN 23 H (7-17) mg/dL Creatinine 1.02 (0.52-1.04) mg/dL Estimated GFR 54.9 ML/MIN Glucose 98 (74-106) mg/dL Calcium 9.0 (8.4-10.2) mg/dL Total Bilirubin 0.80 (0.2-1.3) mg/dL AST 37 H (14-36) U/L ALT 24 (0-35) U/L Alkaline Phosphatase 112 (38-126) U/L NT-Pro-B Natriuret Pep 4290 (<300) pg/mL Serum Total Protein 6.8 (6.3-8.2) g/dL Albumin 4.0 (3.5-5.0) g/dL Urine Color YELLOW (YELLOW) Urine Appearance CLEAR (CLEAR) Urine pH 5.5 (5-6) Ur Specific [place] 1.015 (1.005-1.025) POC Urine Protein Conf 30 A (Negative) Urine Ketones NEGATIVE (NEGATIVE) Urine Nitrite NEGATIVE (NEGATIVE) Urine Bilirubin NEGATIVE (NEGATIVE) Urine Urobilinogen 0.2 (0-1) mg/dL Urine Leukocytes NEGATIVE (NEGATIVE) Urine RBC TRACE-INTACT A (0-5) Terry/ul Urine Microscopic RBC 0-2 (0-5) /HPF Urine Microscopic WBC 0-2 (0-5) /HPF Urine Glucose NEGATIVE (NEGATIVE) mg/dL - Progress Progress Note: 12/28/24 10:48 My medical decision making and the assignment of moderate complexity due to high complexity of this patient's medical issue today is based on review of the patient's past medical history, review the patient's medication list, reviewed patient drug allergy list, history present illness and physical findings on examination. The workup in this patient includes placement of intravenous line, CBC, CMP, urinalysis, CT scan of the thoracic and lumbar spines without contrast. In discussion with the patient as well as the nurses caring for this patient today, the patient and family would like this patient to be placed in the hospital in order to better control her pain as well as obtain discharge planning with placement in a usp. Differential diagnosis includes but is not limited to intractable back pain, urinary tract infection, thoracic/lumbar spine fracture/subluxation. 12/28/24 11:47 I interpreted the patient's laboratory data results. Based on laboratory data results, there are no acute, emergent medical issues. The CT scans of the thoracic and lumbar spine were interpreted by the radiologist and I reviewed the impression: Thoracic spine CT shows nonacute thoracic spine with chronic features. CT of lumbar spine shows a new nondisplaced fracture at the tip of the left L5 transverse process and left sacral ala. I spoke with Dr. Vail, the telehospitalist on-call at this time. I reviewed the patient history, presenting complaint, physical findings on examination and the results of our workup as well as patient response to our intervention. We will admit this patient into the hospital and provide pain management, physical therapy consultation, and obtain discharge planning consultation for possible usp placement. Counseled pt/family regarding: lab results, diagnosis, need for follow-up, rad results Medical Desision Making - Independent Historian Additional History obtained from: Family - Discussion of managment Care discussed with:: hospitalist Reviewed:: Test results, Need for additional workup Agreed on:: Treatment plan, decision to admit Will see patient: in hospital - Diagnostic Testing Diagnostic test were ordered, analyzed, and reviewed by me: Yes Radiological Interpretation: Reviewed by me, Teleradiologist Report - Risk of complications The pt has a high risk of morbidity or mortality based on: Decision regarding hospitilization or escalation of hosp level of care - Departure Departure Disposition: In-patient Admission Clinical Impression: Lumbar transverse process fracture, Sacral fracture, closed, Pain management Condition: Stable Critical Care Time: No Referrals: ANTHONY SANTOS MD [Primary Care Provider] - Follow up/PCP as directed
[2024-12-28 10:38] LABS: Appearance CLEAR (CLEAR); Bilirubin NEGATIVE (NEGATIVE); Glucose NEGATIVE (NEGATIVE); Ketones NEGATIVE (NEGATIVE); Ph 5.5 (5-6); RBC TRACE-INTACT Ery/ul (0-5); Specific Gravity 1.015 (1.005-1.025)
[2024-12-28 10:39] LABS: Nitrite NEGATIVE (NEGATIVE); Protein,Urine Dip 30 (Negative); RBC 0-2 /HPF (0-5); Urobilinogen 0.2 mg/dL (0-1); WBC 0-2 /HPF (0-5)
[2024-12-28] MEDS ORDERED: Zofran 4 MG/2 ML VIAL ONE (11:05)
[2024-12-28] MEDS ORDERED: Norflex 60 MG/2 ML ONE (11:05)
[2024-12-28] MEDS ORDERED: MORPHINE SULFATE 2 MG INJ ONE (11:06)
[2024-12-28] MEDS: Zofran 4 MG/2 ML VIAL IV ONE (11:07)
[2024-12-28] MEDS: Norflex 60 MG/2 ML IV ONE (11:09)
[2024-12-28 11:10] LABS: Absolute Neutrophil Ct (ANC) 6.85 x10^3/uL (1.56-6.13); BASOPHIL % 0.1 % (0.1-1.2); Basophil (Absolute #) 0.01 x10^3/uL (0.01-0.08); Eosinophil (Absolute #) 0 x10^3/uL (0.04-0.36); Hematocrit 39.4 % (34.1-44.9); Hemoglobin 12.9 g/dL (11.2-15.7); IMMATURE GRAN # 0.04 x10^3u/L (0.001-0.031); IMMATURE GRAN % 0.5 % (0.001-0.429); Lymphocyte (Absolute #) 0.29 x10^3/uL (1.18-3.74); Lymphocytes % 3.9 % (19.3-51.7); Mean Cell Volume 86.2 fL (79.4-94.8); Mean Corpuscular Hemoglobin 28.2 pg (25.6-32.2); Mean Corpuscular Hgb Concent. 32.7 g/dL (32.2-35.5); Mean Platelet Volume 9.1 fL (9.4-12.3); Monocyte (Absolute #) 0.29 x10^3/uL (0.24-0.86); Monocytes % 3.9 % (4.7-12.5); Neutrophil % 91.6 % (34.0-71.1); Platelet Count 372 x10^3/uL (182-369); Red Blood Count 4.57 x10^6/uL (3.93-5.22); Red Cell Distribution Width 14.5 % (11.7-14.4); White Blood Count 7.5 x10^3/uL (3.98-10.04)
[2024-12-28] MEDS: MORPHINE SULFATE 2 MG INJ IV ONE (11:10)
[2024-12-28 11:32] LABS: BILIRUBIN,TOTAL 0.8 mg/dL (0.2-1.3); Creatinine 1 1.02 mg/dL (0.52-1.04); EST GLOMERULAR FILTRATION RATE 54.9 ML/MIN; Potassium 4.2 mmol/L (3.5-5.1); Total Protein 6.8 g/dL (6.3-8.2)
--- NOTE | 2024-12-28 11:37 | XRAY ---
Indication: Pain following fall 3 weeks ago. Multiple contiguous axial images obtained through the thoracic spine. Sagittal and coronal reformatted images obtained. Comparison: None Osseous structures demineralized consistent with patient's age. Minimal/mild multilevel anterior endplate spurring and minimal T10-T11 degenerative vacuum disc phenomena. No acute fracture, suspicious bony lesions, or spinal canal stenosis. Sagittal and coronal reformatted images demonstrates normal thoracic alignment/kyphosis. No acute compression fracture or subluxation. Visualized noncontrasted soft tissues demonstrates small subcarinal/tiny left hilar calcified nodes, tiny splenic calcified granulomas, incompletely visualized cardiac pacer leads, old multiple left rib fractures, left lung base pleural thickening, and mild aortic calcifications. Impression: Nonacute thoracic spine with chronic features.
--- NOTE | 2024-12-28 11:42 | XRAY ---
Indication: Pain following fall 3 weeks ago. Multiple contiguous axial images obtained through the lumbar spine. Sagittal and coronal reformatted images obtained. Comparison: CT abdomen/pelvis September 04, 2022 Osseous structures remain demineralized consistent with patient's age. Again minimal/mild L3-S1 broad-based disc bulge, mild bilateral L3-S1 degenerative facet hypertrophy and minimal L5-S1/new L4-L5 degenerative vacuum disc phenomena. New nondisplaced fracture tip of left L5 transverse process and left sacral ala. No other acute fracture, suspicious bony lesions, or spinal canal stenosis. Sagittal and coronal reformatted images again demonstrates normal lumbar alignment with L5-S1 disc space narrowing. No acute compression fracture or subluxation. Visualized noncontrasted soft tissues again demonstrates tiny gallstones and mild aortoiliac calcifications. Impression: 1. New nondisplaced fracture tip left L5 transverse process and left sacral ala. 2. Again incidental osteopenia, L3-S1 DDD, tiny gallstones and arteriosclerotic disease.
[2024-12-28] MEDS ORDERED: Hydromorphone 1 mg/ml Injection ONE (11:59)
[2024-12-28] MEDS: Hydromorphone 1 mg/ml Injection IV ONE (12:01)
[2024-12-28] MEDS ORDERED: Zofran 4 MG/2 ML VIAL IV PRN (13:05)
[2024-12-28] MEDS ORDERED: TYLENOL 325 MG PO PRN (13:05)
--- NOTE | 2024-12-28 13:36 | PCM.HP ---
History of Present Illness - Chief Complaint Chief Complaint: L5 transverse process and sacral ala fracture Date: 12/28/24 History of Present Illness: is a 84 year old female with PMHX of dementia, hypothyroidism, COPD, arrhythmia and is on Eliquis, colorectal cancer with a colon resection with a right lower quadrant and colostomy. Pt arrived to ER today with her son who was sent over from the patient's outpatient clinic because of severe back pain. Patient fell approximately 3 weeks ago after going to sit in her chair, missed the seat, and fell to the ground. Patient's back pain has worsened over the last 6 days. No known recurrent fall. Patient underwent a pelvic CT scan for evaluation of left hip pain dated 12/25/2024. This was at the request of orthopedic clinic. Lumbar spine CT shows: New nondisplaced fracture tip left L5 transverse process and left sacral ala. Thoracic spine CT shows: Nonacute thoracic spine with chronic features. Pt and family would like OP PT vs. rehab placement. Will have PT and OT eval for needs assessment. Will treat pain with narcotic pain meds. She reports BLLE radicular sharp shooting pains and will start gabapentin, Will need to f/u OP with pain management if pain is > 3 months.. She denies CP, SOB, abd pain, N/V/D. - Review of Systems Constitutional: No Fever, No Chills Eyes: No Symptoms Ears, Nose, & Throat: No Symptoms Respiratory: No Cough, No Short Of Breath Cardiac: No Chest Pain, No Edema, No Syncope Abdominal/Gastrointestinal: No Abdominal Pain, No Nausea, No Vomiting, No Diarrhea Genitourinary Symptoms: No Dysuria Musculoskeletal: Back Pain, Fall, No Neck Pain Skin: No Rash Neurological: No Dizziness, No Focal Weakness, No Sensory Changes Psychological: No Symptoms Endocrine: No Symptoms Hematologic/Lymphatic: No Symptoms Immunological/Allergic: No Symptoms Medications & Allergies Home Medications: Home Medication List Amiodarone HCl [Pacerone] 200 mg PO DAILY 01/11/22 [History Confirmed 12/23/24] Apixaban [Eliquis 5 mg Tablet] 5 mg PO BID 01/11/22 [History Confirmed 12/23/24] Omeprazole 40 mg PO DAILY 01/11/22 [History Confirmed 12/23/24] Levothyroxine Sodium 50 mcg PO .ON M, W, TH, SAT, S 09/04/22 [History Confirmed 12/23/24] Cetirizine HCl 10 mg PO DAILY 12/23/24 [History Confirmed 12/23/24] Hydrocodone/Acetaminophen [Hydrocodone-Acetamin 5-325 mg] 1 tab PO Q6HPRN PRN 3 Days #12 tablet MDD 4 12/23/24 [Rx] Levothyroxine Sodium 75 Mcg [Synthroid 75 Mcg] 75 mcg PO .ON AND Saturday12/23/24 [History Confirmed 12/23/24] Memantine HCl [Memantine HCl ER] 28 mg PO DAILY 12/23/24 [History Confirmed 12/23/24] Mirabegron [Myrbetriq] 25 mg PO DAILY 12/23/24 [History Confirmed 12/23/24] Montelukast Sodium 10 mg [Singulair 10 MG] 10 mg PO DAILY 12/23/24 [History Confirmed 12/23/24] Sertraline HCl [Zoloft] 25 mg PO DAILY 12/23/24 [History Confirmed 12/23/24] Allergies/Adverse Reactions: Allergies Allergy/AdvReac Type Severity Reaction Status Date / Time losartan Allergy Severe syncope Verified 12/28/24 09:51 clindamycin Allergy Intermediate Rash Verified 12/28/24 09:51 Penicillins Allergy Intermediate Verified 12/28/24 09:51 Sulfa (Sulfonamide Allergy Intermediate Verified 12/28/24 09:51 Antibiotics) [Sulfa(Sulfonamide Antibiotics)] - Past Medical History Past Medical History: Yes Neurological History: Dementia ENT History: Cataracts Cardiac History: Other Respiratory History: Other Endocrine Medical History: No Pertinent History Musculoskelatal History: Osteoarthritis GI Medical History: Colorectal Cancer History: No Pertinent History Pyscho-Social History: No Pertinent History Reproductive Disorders: No Pertinent History Comment: - - Past Surgical History Past Surgical History: Yes Neuro Surgical History: No Pertinent History Cardiac History: No Pertinent History Respiratory Surgery: No Pertinent History GI Surgical History: Colon Resection Genitourinary Surgical Hx: No Pertinent History Musculskeletal Surgical Hx: No Pertinent History Female Surgical History: Hysterectomy Other Surgical History: colostomy - Social History Smoking Status: Never smoker Exposure to second hand smoke: No Alcohol: None Drug Use: none - Social Determinants of Health Will the patient participate in the screening: Yes Do you worry about a steady place to live?: No Do you have any problems with any of the following?: No known problems In the past 12 months,have you had to go without utilities?: No Have you or anyone in your house had to go without enough: No Transportation Issues: No Has anyone in your support network made you feel unsafe?: No Comment: Son requesting assistance with transportation needs - Physical Exam Vital Signs: Vital Signs - 24 hr Pulse Resp BP BP Pulse Ox 12/28/24 12:30 61 14 155/84 94 L 12/28/24 12:16 65 7 L 135/91 93 L 12/28/24 12:15 75 22 95 12/28/24 12:10 74 19 95 12/28/24 12:02 99 H 14 94 L 12/28/24 11:30 99 H 16 163/88 96 12/28/24 11:00 80 19 160/84 12/28/24 10:35 61 14 164/80 98 12/28/24 10:34 64 18 96 12/28/24 10:00 66 17 145/74 93 L 12/28/24 09:30 85 25 H 150/85 96 12/28/24 09:00 71 19 160/97 91 L 12/28/24 08:58 87 18 160/97 95 General Appearance: no apparent distress, alert Neurologic Exam: alert, oriented x 3, cooperative, normal mood/affect, nml cerebellar function, nml station & gait, sensation nml, No motor deficits Eye Exam: PERRL/EOMI, eyes nml inspection Ears, Nose, Throat Exam: normal ENT inspection, TMs normal, pharynx normal, moist mucous membranes Neck Exam: normal inspection, non-tender, supple, full range of motion Respiratory Exam: normal breath sounds, lungs clear, No respiratory distress Cardiovascular Exam: regular rate/rhythm, normal heart sounds, normal peripheral pulses Gastrointestinal/Abdomen Exam: soft, normal bowel sounds, No tenderness, No mass Back Exam: decreased range of motion, No CVA tenderness, No vertebral tenderness Extremity Exam: normal inspection, normal range of motion, pelvis stable Skin Exam: normal color, warm, dry, No rash Lymphatic Exam: No adenopathy Results - Labs Lab/Micro Results: Lab Results-Last 24 Hours 12/28/24 12/28/2412/28/25 Range/Units 09:47 11:09 11:09 WBC 7.5 (3.98-10.04) x10^3/uL RBC 4.57 (3.93-5.22) x10^6/uL Hgb 12.9 (11.2-15.7) g/dL Hct 39.4 (34.1-44.9) % MCV 86.2 (79.4-94.8) fL MCH 28.2 (25.6-32.2) pg MCHC 32.7 (32.2-35.5) g/dL RDW 14.5 H (11.7-14.4) % Plt Count 372 H (182-369) x10^3/uL MPV 9.1 L (9.4-12.3) fL Gran % 91.6 H (34.0-71.1) % Immature Gran % (Auto) 0.5 H (0.001-0.429) % Nucleat RBC Rel Count 0.0 (0.00-0.2) % Eos # (Auto) 0 L (0.04-0.36) x10^3/uL Immature Gran # (Auto) 0.04 H (0.001-0.031) x10^3u/L Absolute Lymphs (auto) 0.29 L (1.18-3.74) x10^3/uL Absolute Monos (auto) 0.29 (0.24-0.86) x10^3/uL Absolute Nucleated RBC 0.00 (0.00-0.012) x10^3u/L Lymphocytes % 3.9 L (19.3-51.7) % Monocytes % 3.9 L (4.7-12.5) % Eosinophils % 0.0 L (0.7-5.8) % Basophils % 0.1 (0.1-1.2) % Absolute Granulocytes 6.85 H (1.56-6.13) x10^3/uL Basophils # 0.01 (0.01-0.08) x10^3/uL Sodium 133 L (135-145) mmol/L Potassium 4.2 (3.5-5.1) mmol/L Chloride 102 (98-107) mmol/L Carbon Dioxide 22 (22-30) mmol/L Anion Gap 13.0 (5-15) MEQ/L BUN 23 H (7-17) mg/dL Creatinine 1.02 (0.52-1.04) mg/dL Estimated GFR 54.9 ML/MIN Glucose 98 (74-106) mg/dL Calcium 9.0 (8.4-10.2) mg/dL Total Bilirubin 0.80 (0.2-1.3) mg/dL AST 37 H (14-36) U/L ALT 24 (0-35) U/L Alkaline Phosphatase 112 (38-126) U/L NT-Pro-B Natriuret Pep 4290 (<300) pg/mL Serum Total Protein 6.8 (6.3-8.2) g/dL Albumin 4.0 (3.5-5.0) g/dL Urine Color YELLOW (YELLOW) Urine Appearance CLEAR (CLEAR) Urine pH 5.5 (5-6) Ur Specific [place] 1.015 (1.005-1.025) POC Urine Protein Conf 30 A (Negative) Urine Ketones NEGATIVE (NEGATIVE) Urine Nitrite NEGATIVE (NEGATIVE) Urine Bilirubin NEGATIVE (NEGATIVE) Urine Urobilinogen 0.2 (0-1) mg/dL Urine Leukocytes NEGATIVE (NEGATIVE) Urine RBC TRACE-INTACT A (0-5) Terry/ul Urine Microscopic RBC 0-2 (0-5) /HPF Urine Microscopic WBC 0-2 (0-5) /HPF Urine Glucose NEGATIVE (NEGATIVE) mg/dL - Radiology Impressions Radiology Exams & Impressions: Radiology Procedures Category Date Time Status LUMBAR SPINE W/O [CT] Stat Exams 12/28/24 09:22 Completed THORACIC SPINE W/O CONTRAST [CT] Stat Exams 12/28/24 09:22 Completed Assessment/Plan (1) Lumbar transverse process fracture Current Visit: Yes Status: Acute Assessment & Plan: - As seen on CT - Will need OP f/U - PT/OT [place]; - narcotic pain control - CBC, CMP reviewed Code(s): S32.009A - UNSP FRACTURE OF UNSP LUMBAR VERTEBRA, INIT FOR CLOS FX (2) Sacral fracture, closed Current Visit: Yes Status: Acute Assessment & Plan: - As seen on CT - Will need OP f/U - PT/OT [place]; - Narcotic pain control PRN - CBC, CMP reviewed - Consider referral to pain management if continued pain after 3 months for inj ection Code(s): S32.10XA - UNSP FRACTURE OF SACRUM, INIT ENCNTR FOR CLOSED FRACTURE (3) Pain management Current Visit: Yes Status: Acute Assessment & Plan: - Narcotic pain medication - Tylenol Q6 PRN - Tele - Gabapentin start 300mg TID- increase slowly d/t age Code(s): R52 - PAIN, UNSPECIFIED (4) Hypothyroidism Current Visit: Yes Status: Chronic Assessment & Plan: - Continue Levothyroxine Code(s): E03.9 - HYPOTHYROIDISM, UNSPECIFIED (5) GERD (gastroesophageal reflux disease) Current Visit: Yes Status: Chronic Assessment & Plan: - Continue omeprazole Code(s): K21.9 - GASTRO-ESOPHAGEAL REFLUX DISEASE WITHOUT ESOPHAGITIS (6) Obesity (BMI 30.0-34.9) Current Visit: Yes Status: Chronic Assessment & Plan: - Advised diet and exercise control Code(s): E66.811 - OBESITY, CLASS 1 (7) Chronic atrial fibrillation Current Visit: Yes Status: Chronic Assessment & Plan: - Continue Eliquis VTE: Eliquis PPI: omeprazole Next of KIN: Son D/C plan: 1-2 days Code status: fall Code(s): I48.20 - CHRONIC ATRIAL FIBRILLATION, UNSPECIFIED
[2024-12-28 13:48] LABS: Slide Review 1 YES
[2024-12-28] MEDS: NEURONTIN PO SCH (14:20)
[2024-12-28] MEDS: TYLENOL 325 MG PO PRN (14:20)
[2024-12-28] MEDS: Hydromorphone 1 mg/ml Injection IV PRN (16:02)
[2024-12-28] MEDS: DECADRON 10MG INJ. IV ONE (17:12)
[2024-12-28] MEDS ORDERED: NON-FORMULARY ITEM (Apixaban*** [Eliquis 5 Mg Tablet***] 5 MG Tablet) PO SCH (22:00)
[2024-12-28] MEDS: ELIQUIS 2.5 MG TABLET PO SCH (22:18)
[2024-12-29] MEDS: NORCO 5/325 MG PO PRN (04:56)
[2024-12-29 05:20] LABS: Absolute Neutrophil Ct (ANC) 3.75 x10^3/uL (1.56-6.13); Basophil (Absolute #) 0 x10^3/uL (0.01-0.08); Eosinophil % 0.2 % (0.7-5.8); Eosinophil (Absolute #) 0.01 x10^3/uL (0.04-0.36); Hematocrit 36.9 % (34.1-44.9); IMMATURE GRAN # 0.02 x10^3u/L (0.001-0.031); IMMATURE GRAN % 0.5 % (0.001-0.429); Lymphocyte (Absolute #) 0.33 x10^3/uL (1.18-3.74); Lymphocytes % 7.8 % (19.3-51.7); Mean Cell Volume 86.6 fL (79.4-94.8); Mean Corpuscular Hemoglobin 28.2 pg (25.6-32.2); Mean Corpuscular Hgb Concent. 32.5 g/dL (32.2-35.5); Mean Platelet Volume 9.3 fL (9.4-12.3); Monocyte (Absolute #) 0.14 x10^3/uL (0.24-0.86); Monocytes % 3.3 % (4.7-12.5); Neutrophil % 88.2 % (34.0-71.1); Platelet Count 384 x10^3/uL (182-369); Red Blood Count 4.26 x10^6/uL (3.93-5.22); Red Cell Distribution Width 14.6 % (11.7-14.4); White Blood Count 4.3 x10^3/uL (3.98-10.04)
[2024-12-29 05:48] LABS: ALBUMIN 3.5 g/dL (3.5-5.0); ANION GAP 10.8 MEQ/L (5-15); BILIRUBIN,TOTAL 0.6 mg/dL (0.2-1.3); Calcium 8.7 mg/dL (8.4-10.2); Creatinine 1 0.97 mg/dL (0.52-1.04); EST GLOMERULAR FILTRATION RATE 58.3 ML/MIN; Potassium 4.3 mmol/L (3.5-5.1); Total Protein 6.3 g/dL (6.3-8.2)
[2024-12-29] MEDS ORDERED: MEDICATION INTERVENTION MC SCH (07:15)
[2024-12-29 07:43] LABS: Slide Review 1 YES
[2024-12-29 08:15] VITALS: O2SAT 97
[2024-12-29] MEDS: CLARITIN 10 MG PO SCH (09:09)
[2024-12-29] MEDS: Lasix 20 MG/2 ML IV SCH (09:09)
[2024-12-29] MEDS: Singulair 10 MG PO SCH (09:10)
[2024-12-29] MEDS: Protonix 40MG Tablet PO SCH (09:10)
[2024-12-29] MEDS: ZOLOFT 50 MG TABLET PO SCH (09:10)
[2024-12-29] MEDS: Cordarone 200 MG PO SCH (09:11)
[2024-12-29] MEDS: MYRBETRIQ PO SCH (09:11)
[2024-12-29] MEDS: SYNTHROID 75 MCG PO SCH (09:12)
[2024-12-29] MEDS ORDERED: NON-FORMULARY ITEM (Cetirizine Hcl [Cetirizine Hcl] 10 MG Tablet) PO SCH (10:00)
[2024-12-29] MEDS ORDERED: NON-FORMULARY ITEM (Omeprazole [Omeprazole] 40 MG Capsule.Dr) PO SCH (10:00)
[2024-12-29] MEDS ORDERED: NON-FORMULARY ITEM (Sertraline Hcl [Zoloft] 25 MG Tablet) PO SCH (10:00)
[2024-12-29] MEDS ORDERED: NON-FORMULARY ITEM (Memantine Hcl [Memantine Hcl Er] 28 MG Cap.Spr.24) PO SCH (10:00)
[2024-12-29] MEDS ORDERED: APRESOLINE 20 MG/ML INJ IV PRN (12:08)
--- NOTE | 2024-12-29 12:12 | PCM.DS ---
Discharge Summary Date of Admission: 12/28/24 12:59 Date of Discharge: 12/29/24 Admitting Physician: TRICIA PELAYO MD Consults: Consults on Case 12/28/24 09:11 [facility] Referral ONCE Primary Care Provider: ANTHONY SANTOS Allergies Allergies losartan Allergy (Severe, Verified 12/28/24 09:51) syncope listed in dr carrillo discharge notes clindamycin Allergy (Intermediate, Verified 12/28/24 09:51) Rash Penicillins Allergy (Intermediate, Verified 12/28/24 09:51) pt cant rememer reaction. Sulfa (Sulfonamide Antibiotics) [Sulfa(Sulfonamide Antibiotics)] Allergy (Intermediate, Verified 12/28/24 09:51) pt cant remember reaction Hospital Summary - Hospital Course Hospital Course: 12/28/24 is a 84 year old female with PMHX of dementia, hypothyroidism, COPD, arrhythmia and is on Eliquis, colorectal cancer with a colon resection with a right lower quadrant and colostomy. Pt arrived to ER today with her son who was sent over from the patient's outpatient clinic because of severe back pain. Patient fell approximately 3 weeks ago after going to sit in her chair, missed the seat, and fell to the ground. Patient's back pain has worsened over the l ast 6 days. No known recurrent fall. Patient underwent a pelvic CT scan for evaluation of left hip pain dated 12/25/2024. This was at the request of orthopedic clinic. Lumbar spine CT shows: New nondisplaced fracture tip left L5 transverse process and left sacral ala. Thoracic spine CT shows: Nonacute thoracic spine with chronic features. Pt and family would like OP PT vs. rehab placement. Will have PT and OT eval for needs assessment. Will treat pain with narcotic pain meds. She reports BLLE radicular sharp shooting pains and will start gabapentin, Will need to f/u OP with pain management if pain is > 3 months.. She denies CP, SOB, abd pain, N/V/D. 12/29/24 Pt restinf in bed. She continues to be in significant pain despite IV narcotic pain meds and gabapentin started yesterday. She continues to c/o radicular shooting pains down BL legs. Discussed case with ortho nurses yesterday as ortho provider not in and they stated ortho will not see this pt. Ordered MRI for further eval of sxs and radiology refused to do MRI as pt has a pacemaker. Pacemaker is MRI compatible per cardiology as nurse called this yesenia Ward's office to ask. PT/OT concerned about pt's pain and unable to participate in evaluation. Discussed case with Dr. Pelayo and he agrees the pt n eeds transferred to higher level of care for eval by ortho/neuro. Echo pending. BP elevated but may be 2:2 pain level. PRN IV BP med added until echo read. Lasix started for CHF. Pt has + 3 BLLE edema, TEDS ordered. Pt to tx to higher level of care and [facility] has accepted pt. Pt denies CP, SOB, abd. pain, N/V/D. - Vitals & Intake/Output Vital Signs: Vital Signs Temperature 97.3 F 12/29/24 08:00 Pulse Rate 62 12/29/24 08:00 Respiratory Rate 15 12/29/24 08:00 Blood Pressure 166/79 12/29/24 08:00 O2 Sat by Pulse Oximetry 97 12/29/24 08:00 Intake & Output: Intake & Output 12/27/24 12/28/24 12/29/24 12/30/24 11:59 11:59 11:59 11:59 Intake Total 600 Output Total 850 Balance -250 Weight 81.1 kg 97.5 kg - Lab Result Diagrams: 12/29/24 05:11 12/29/24 05:11 Lab Results-Last 24 Hrs: Lab Results-Last 24 Hours 12/28/24 12/29/24 12/29/24 Range/Units 11:09 05:11 05:11 WBC 4.3 (3.98-10.04) x10^3/uL RBC 4.26 (3.93-5.22) x10^6/uL Hgb 12.0 (11.2-15.7) g/dL Hct 36.9 (34.1-44.9) % MCV 86.6 (79.4-94.8) fL MCH 28.2 (25.6-32.2) pg MCHC 32.5 (32.2-35.5) g/dL RDW 14.6 H (11.7-14.4) % Plt Count 384 H (182-369) x10^3/uL MPV 9.3 L (9.4-12.3) fL Gran % 88.2 H (34.0-71.1) % Immature Gran % (Auto) 0.5 H (0.001-0.429) % Nucleat RBC Rel Count 0.0 (0.00-0.2) % Eos # (Auto) 0.01 L (0.04-0.36) x10^3/uL Immature Gran # (Auto) 0.02 (0.001-0.031) x10^3u/L Absolute Lymphs (auto) 0.33 L (1.18-3.74) x10^3/uL Absolute Monos (auto) 0.14 L (0.24-0.86) x10^3/uL Absolute Nucleated RBC 0.00 (0.00-0.012) x10^3u/L Lymphocytes % 7.8 L (19.3-51.7) % Monocytes % 3.3 L (4.7-12.5) % Eosinophils % 0.2 L (0.7-5.8) % Basophils % 0.0 L (0.1-1.2) % Absolute Granulocytes 3.75 (1.56-6.13) x10^3/uL Basophils # 0 L (0.01-0.08) x10^3/uL Sodium 132 L (135-145) mmol/L Potassium 4.3 (3.5-5.1) mmol/L Chloride 101 (98-107) mmol/L Carbon Dioxide 25 (22-30) mmol/L Anion Gap 10.8 (5-15) MEQ/L BUN 23 H (7-17) mg/dL Creatinine 0.97 (0.52-1.04) mg/dL Estimated GFR 58.3 ML/MIN Glucose 123 H (74-106) mg/dL Calcium 8.7 (8.4-10.2) mg/dL Total Bilirubin 0.60 (0.2-1.3) mg/dL AST 32 (14-36) U/L ALT 25 (0-35) U/L Alkaline Phosphatase 95 (38-126) U/L Serum Total Protein 6.3 (6.3-8.2) g/dL Albumin 3.5 (3.5-5.0) g/dL Slides for Path Review YES YES Micro Results-Entire Visit: Microbiology 12/28/24 10:30 Urine Culture - Preliminary Catherized NO GROWTH TO DATE - Radiology Exams Ordered Rad Exams-Entire Visit: Radiology Procedures Category Date Time Status ECHO W/2D AND DOPPLER [US] Routine Exams 12/29/24 08:00 Taken LUMBAR SPINE W/O [CT] Stat Exams 12/28/24 09:22 Completed THORACIC SPINE W/O CONTRAST [CT] Stat Exams 12/28/24 09:22 Completed - Procedures and Test Procedures and Tests throughout Hospitalization: Therapy Orders & Screens 12/28/24 13:05 PT Eval & Treat ( Order) ONCE Reason for Eval:: L5 transverse process and sacral alae fracture Diagnosis: L5 transverse process and sacral ala fracture 12/28/24 13:34 OT Eval and Treat ( Order) ONCE Comment: Physician Instructions: Reason For Exam: Evaluate: Yes Treat: Yes Reason for Evaluation: Rehab vs. OP needs Diagnosis: L5 transverse process and sacral ala fracture 12/28/24 13:40 OT Screen per Nursing Assess ONCE Comment: Protocol Order Physician Instructions: Greater than 3 points order OT Admission Screening Reason For Exam: Triggered on Admission Diagnosis: L5 transverse process and sacral ala fracture Open Wound/Cellutlitis/Pressure Ulcers: No Acute Fx/ORIF/Change in wt bearing status: No Severe MUSCULOSKELETAL pain: Yes: low back pain ADL Dysfunction: Yes: movement very painful Acute CVA w/Hemiparesis/Hemiplegia: No Decreased Functional Mobility/Strength: Yes: recent falls Sprain/Strain: No Acute Post-op Mobility Dysfunction: No Total Points: 9 PT Screen per Nursing Assess ONCE Comment: Protocol Order Physician Instructions: Greater than 3 points order PT Admission Screenin Reason For Exam: Triggered on Admission Diagnosis: L5 transverse process and sacral ala fracture Open Wound/Cellutlitis/Pressure Ulcers: No Acute Fx/ORIF/Change in wt bearing status: No Severe MUSCULOSKELETAL pain: Yes: low back pain ADL Dysfunction: Yes: movement very painful Acute CVA w/Hemiparesis/Hemiplegia: No Decreased Functional Mobility/Strength: Yes: recent falls Sprain/Strain: No Acute Post-op Mobility Dysfunction: No Total Points: 9 Discharge Exam General Appearance: mild distress, alert, obese Neurologic Exam: alert, oriented x 3, cooperative, normal mood/affect, nml cerebellar function, sensation nml, No motor deficits Eye Exam: PERRL, EOMI, eyes nml inspection Ears, Nose, Throat Exam: normal ENT inspection, pharynx normal, moist mucous membranes Neck Exam: normal inspection, non-tender, supple, full range of motion Respiratory Exam: normal breath sounds, lungs clear, No respiratory distress Cardiovascular Exam: regular rate/rhythm, normal heart sounds, edema (+3 pitting edema BLLE) Gastrointestinal/Abdomen Exam: soft, No tenderness, No mass Pelvic Exam: deferred Rectal Exam: deferred Back Exam: decreased range of motion, No CVA tenderness, No vertebral tenderness Extremity Exam: normal inspection, parasthesia Skin Exam: normal color, warm, dry Final Diagnosis/Problem List - Final Discharge Diagnosis/Problem (1) Lumbar transverse process fracture Current Visit: Yes Status: Acute Code(s): S32.009A - UNSP FRACTURE OF UNSP LUMBAR VERTEBRA, INIT FOR CLOS FX (2) Sacral fracture, closed Current Visit: Yes Status: Acute Code(s): S32.10XA - UNSP FRACTURE OF SACRUM, INIT ENCNTR FOR CLOSED FRACTURE (3) Pain management Current Visit: Yes Status: Acute Code(s): R52 - PAIN, UNSPECIFIED (4) Hypothyroidism Current Visit: Yes Status: Chronic Code(s): E03.9 - HYPOTHYROIDISM, UNSPECIFIED (5) GERD (gastroesophageal reflux disease) Current Visit: Yes Status: Chronic Code(s): K21.9 - GASTRO-ESOPHAGEAL REFLUX DISEASE WITHOUT ESOPHAGITIS (6) Obesity (BMI 30.0-34.9) Current Visit: Yes Status: Chronic Code(s): E66.811 - OBESITY, CLASS 1 (7) Chronic atrial fibrillation Current Visit: Yes Status: Chronic Assessment & Plan: (1) Lumbar transverse process fracture Current Visit: Yes Status: Acute Assessment & Plan: - As seen on CT - Will need OP f/U - PT/OT diego; - narcotic pain control - CBC, CMP reviewed Code(s): S32.009A - UNSP FRACTURE OF UNSP LUMBAR VERTEBRA, INIT FOR CLOS FX (2) Sacral fracture, closed Current Visit: Yes Status: Acute Assessment & Plan: - As seen on CT - Will need OP f/U - PT/OT eval- notes reviewed - Narcotic pain control PRN - CBC, CMP reviewed - Consider referral to pain management if continued pain after 3 months for injection - Radiology will not do MRI as pt has a pacemaker - Ortho @ [facility] will not see pt per staff 12/29 - TX to higher level of care - Pain remains at 07/02 pain - Strict bedrest - Pacemaker MRI compatable per Dr. Ward's office Code(s): S32.10XA - UNSP FRACTURE OF SACRUM, INIT ENCNTR FOR CLOSED FRACTURE (3) Pain management Current Visit: Yes Status: Acute Assessment & Plan: - Narcotic pain medication IV - Tylenol Q6 PRN - Tele - Gabapentin start 300mg TID- increase slowly d/t age Code(s): R52 - PAIN, UNSPECIFIED (4) Hypothyroidism Current Visit: Yes Status: Chronic Assessment & Plan: - Continue Levothyroxine Code(s): E03.9 - HYPOTHYROIDISM, UNSPECIFIED (5) GERD (gastroesophageal reflux disease) Current Visit: Yes Status: Chronic Assessment & Plan: - Continue omeprazole Code(s): K21.9 - GASTRO-ESOPHAGEAL REFLUX DISEASE WITHOUT ESOPHAGITIS (6) Obesity (BMI 30.0-34.9) Current Visit: Yes Status: Chronic Assessment & Plan: - Advised diet and exercise control Code(s): E66.811 - OBESITY, CLASS 1 (7) Chronic atrial fibrillation Current Visit: Yes Status: Chronic Assessment & Plan: - Continue Eliquis Code(s): I48.20 - CHRONIC ATRIAL FIBRILLATION, UNSPECIFIED (8) HTN (hypertension) Current Visit: Yes Status: Acute Assessment & Plan: - Hydralazine 10mg IV Q4 PRN for BP > 160/90 - likely 2:2 uncontrolled pain Code(s): I10 - ESSENTIAL (PRIMARY) HYPERTENSION (9) Edema of both lower legs Current Visit: Yes Status: Acute Assessment & Plan: - Echo - TEDS - Lasix Code(s): R60.0 - LOCALIZED EDEMA (10) CHF (congestive heart failure) Current Visit: Yes Status: Acute Assessment & Plan: - Echo - TEDS - Lasix - Tele - BNP 4290 Code(s): I50.9 - HEART FAILURE, UNSPECIFIED - Discharge Discharge Date: 12/29/24 [facility] Condition: Fair Prescriptions: Continue Apixaban [Eliquis 5 mg Tablet] 5 mg PO BID Amiodarone HCl [Pacerone] 200 mg PO DAILY Omeprazole 40 mg PO DAILY Levothyroxine Sodium 50 mcg PO .ON , , , SAT, S Levothyroxine Sodium 75 Mcg [Synthroid 75 Mcg] 75 mcg PO .ON AND SATURDAY Memantine HCl [Memantine HCl ER] 28 mg PO DAILY Sertraline HCl [Zoloft] 25 mg PO DAILY Cetirizine HCl 10 mg PO DAILY Montelukast Sodium 10 mg [Singulair 10 MG] 10 mg PO DAILY Mirabegron [Myrbetriq] 25 mg PO DAILY Hydrocodone/Acetaminophen [Hydrocodone-Acetamin 5-325 mg] 1 tab PO Q6HPRN PRN 3 Days #12 tablet MDD 4 PRN Reason: Pain Follow up with: ANTHONY SANTOS MD [Primary Care Provider] -
[2024-12-29 12:30] VITALS: BP 143/74; PULSE 86; RESP 16; TEMP 97.5
[2024-12-30] MEDS ORDERED: SYNTHROID 50 MCG PO SCH (10:00)
== END 2024-12-29 15:25 | disposition short-term general hospital (02) ==
LOC: ED 08:52 → INTOOBSV 12:59 → ICU 12:59 → MED SURG 12-29 02:04
PROVIDERS: ADMIT Internal Medicine; ATTEND Internal Medicine
DX: S32.009A Unspecified fracture of unspecified lumbar vertebra, initial encounter for closed fracture (principal); S32.10XA Unspecified fracture of sacrum, initial encounter for closed fracture; Z59.82 Transportation insecurity; R52 Pain, unspecified; E03.9 Hypothyroidism, unspecified; K21.9 Gastro-esophageal reflux disease without esophagitis; E66.811 Obesity, class 1; I48.20 Chronic atrial fibrillation, unspecified; R60.0 Localized edema; I11.0 Hypertensive heart disease with heart failure; I50.9 Heart failure, unspecified; W19.XXXA Unspecified fall, initial encounter; Z79.01 Long term (current) use of anticoagulants; Z79.899 Other long term (current) drug therapy; Z85.038 Personal history of other malignant neoplasm of large intestine; Z93.3 Colostomy status
CPT/HCPCS: 36415; 51702; 72128; 72131; 80053; 81001; 83880; 85025; 87086; 93268; 93306; 96374; 96375; 97161; 97165; 97535; 99285; G0378; Q3014; 99284; J1100; J1171; J1940; J2270; J2360; J2405; A9270-GY